=== PATIENT | male | born 1945 | race Caucasian/White ===

== ENCOUNTER → 2020-03-20 11:52 | Outpatient (CLI) | payer MEDICARE, SELFPAY ==
--- NOTE | 2020-03-20 12:00 | XR_ITS ---
PROCEDURE: XR CHEST 2V CLINICAL HISTORY: dyspnea Shortness of air, dizziness COMPARISON: CR [id number] XR chest portable from 01/06/2018 FINDINGS: Borderline cardiomegaly. No failure. There are 2 right atrial and to right ventricular pacer wires present. Coronary artery calcifications are noted. Chronic changes are present in the left lung base The lungs are clear without infiltrates, suspicious nodules, or pleural effusions. Hypertrophic changes are present involving the right AC joint. IMPRESSION: Cardiomegaly with pacemaker present. No change with no acute finding Dictated by: Sajan Crawford MD 03/20/2020 15:51 Sajan Crawford MD in [place] 03/20/2020 15:51
[2020-03-20 13:11] LABS: Basophils % 0.4 % (0.1-2.0); Eosinophils # 0.2 K/mm3 (0.0-0.4); Eosinophils % 2.7 % (0.1-12.0); Hemoglobin 15.3 g/dL (14.1-18.0); Lymphocytes % 12.8 % (10-50); Mean Corpuscular HGB Conc 30.6 g/dL (31.8-35.4); Mean Corpuscular Hemoglobin 25.8 pg (27.0-31.2); Mean Corpuscular Volume 84.2 fl (80-94); Monocytes # 0.7 K/mm3 (0.1-1.0); Monocytes % 8.8 % (1.7-9.3); Neutrophils % 75.4 % (37.0-80.0); Platelet Count 130 K/mm3 (142-424); Red Blood Count 5.94 M/mm3 (4.60-6.20); Red Cell Distribution Width 14.9 % (11.5-17.5)
[2020-03-20 14:26] LABS: Anion Gap 12.6 mEq/L (5-15); Blood Urea Nitrogen 28 mg/dl (9-20); Calcium 9.3 mg/dl (8.4-10.2); Carbon Dioxide 34 mmol/L (22.0-30.0); Chloride 101 mmol/L (98-107); Estimated Glomerular Filt Rate 43 ml/min (>60); GFR (African American) 52 ML/MIN (>60); Glucose 62 mg/dl (74-100); Potassium 5.6 mmoL/L (3.5-5.1); Sodium 142 mmol/L (136-145)
[2020-03-20 14:30] LABS: NT Pro Brain Natriuretic Pep. 516 pg/mL (0-125)
== END ==
PROVIDERS: Visit Provider Internal Medicine Cardiovascular Disease
DX: E78.2 Mixed hyperlipidemia (principal); G62.9 Polyneuropathy, unspecified; I11.0 Hypertensive heart disease with heart failure; I25.10 Atherosclerotic heart disease of native coronary artery without angina pectoris; I50.22 Chronic systolic (congestive) heart failure; R06.02 Shortness of breath; R42 Dizziness and giddiness; R55 Syncope and collapse; Z95.810 Presence of automatic (implantable) cardiac defibrillator
CPT/HCPCS: 36415; 71046; 80048; 83880; 85025

== ENCOUNTER → 2020-03-27 08:49 | Outpatient (CLI) | payer MEDICARE, SELFPAY ==
--- NOTE | 2020-03-27 | CA_ITS ---
APPROVED REPORT Exam: Pharmacologic Technologist: Cherri Duarte, Ht: 5 ft 5 in Wt: 205 lbs BSA: 2.00 m2 HR: 69 bpm BP: 134/69 mmHg Rhythm: NSR,T WAVE ABNORMALITIES INFERIORLY AND LATERALLY Medical History Medical History: CAD s/p stent, HTN Medications: Lisinopril,,,,, Omeprazole,,,,, Metoprolol,,,,, Gabapentin,,,,, Sotalol,,,,, XaRELTO,,,,, Meclazine,,,,, Plavix,,,,, OxYCODONE,,,,, Baclofen,,,,, Ranexa,,,,, Pramidexole,,,,, Allergies: PROCAINE, SACUBITRIL, VALSARTAN Cardiac Risk Factors: HTN, FHX of CAD Previous Cardiac Procedures: Pacemaker Stress Test Details Test: LEXISCAN HR Resting HR: 70 bpm Max Heart Rate (APMHR): 147 bpm Max HR Achieved: 85 bpm Target HR (85% APMHR): 124 bpm % of APMHR: 57 Recovery HR: 76 bpm BP Resting BP: 134.0/69.0 mmHg Max BP: 140.0/71.0 mmHg Recovery BP: 136.0/74.0 mmHg ECG Resting ECG: NSR,T WAVE ABNORMALITIES INFERIORLY AND LATERALY Clinical Exercise duration: 04:01 min Highest Stage Achieved: Exercise capacity: 1.0 METs Stress ECG Conclusion DURING INFUSION PATIENT HAD BRIEF SOA,SEVERE HEADACHE,EAR PRESSURE AND MALAISE. NO CHEST PAIN. RARE PVC. NO SIGNIFICANT ST-T CHANGES. UNREMARKABLE LEXISCAN STRESS. MYOVIEW IMAGES REPORTED SEPARATELY Test Summary REST . . . . . . . Sitting REST 04:03 . . 70 . 134/ 69 . . Stage 1 . . . . . . . Myoview Injected Stage 1 01:00 . . 79 . . . . Stage 2 01:00 . . 80 . 100/ 51 . . Stage 3 01:00 . . 79 . 129/ 61 . . Stage 4 01:00 . . 78 . 126/ 67 . . Stage 4 01:01 . . 78 . 126/ 67 . Stop exercise at 04:01 RECOVERY 01:00 . . 74 . 136/ 74 . . RECOVERY 02:00 . . 80 . 136/ 74 . . RECOVERY 03:00 . . 75 . 140/ 71 . . RECOVERY 04:00 . . 74 . 135/ 68 . . RECOVERY 05:00 . . 75 . 135/ 68 . . RECOVERY 06:00 . . 73 . 134/ 70 . . RECOVERY 07:00 . . 72 . 134/ 70 . . RECOVERY 07:38 . . 72 . 138/ 70 . . Electronically signed by : Antwon Angulo, 03/27/2020 13:32:16
--- NOTE | 2020-03-27 08:51 | CA_ITS ---
APPROVED REPORT Strategy Manager: EBONIE Laterality: Bilateral Indications: bilateral carotid bruits Risk Factors Hypertension: Hyperlipidemia CAD, CHF Doppler Spectral Velocity Analysis ECA (R) 102.30/16.50 cm/s ECA (L) 111.70/20.20 cm/s dICA (R) 70.60/27.00 cm/s dICA (L) 79.30/20.20 cm/s Paulino (R) 74.50/22.50 cm/s Paulino (L) 80.10/26.90 cm/s pICA (R) 62.90/12.80 cm/s pICA (L) 66.60/19.50 cm/s dCCA (R) 288.10/26.00 cm/s dCCA (L) 110.00/21.00 cm/s pCCA (R) 248.00/28.30 cm/s pCCA (L) 87.50/9.00 cm/s Vert (R) 33.70/12.00 cm/s Vert (L) 45.60/12.80 cm/s ICA/CCA 0.40 ICA/CCA 0.73 Findings Duplex evaluation demonstrates stenosis of the right proximal internal carotid artery <20% with PSV <140 cm/sec, EDV <100 cm/sec, and IC/CC Ratio <4.0. Duplex evaluation demonstrates stenosis of the left proximal internal carotid artery <20% with PSV <140 cm/sec, EDV <100 cm/sec, and IC/CC Ratio <4.0. Conclusion Duplex evaluation demonstrates stenosis of the right proximal internal carotid artery <20% with PSV <140 cm/sec, EDV <100 cm/sec, and IC/CC Ratio <4.0. Duplex evaluation demonstrates stenosis of the left proximal internal carotid artery <20% with PSV <140 cm/sec, EDV <100 cm/sec, and IC/CC Ratio <4.0. Electronically signed by : Archie Guerrero MD 03/27/2020 13:04:46
--- NOTE | 2020-03-27 08:51 | CA_ITS ---
APPROVED REPORT EXAM: Comprehensive 2D, Doppler, and color-flow Echocardiogram Learning Officer: Brittanie De Guzman RT(R) Ht: 5 ft 5 in Wt: 205lbs BSA: 2.00 BP: 126/56 mmHg Indications: SOB, BRIANNE, syncope, HTN, AICD, CHF, CM, CAD 2D Dimensions LVOT 1.99 cm (M/F) 1.5-2.5 M-Mode Dimensions RVDd 2.73 cm (0.9-2.6) LVDd 4.79 cm (3.5-5.7) LVDs 3.90 cm (3.5-5.7) IVSd 1.03 cm (0.6-1.1) PWd 1.13 cm (0.6-1.1) EF (Teich) 38.40% FS 18.60% EDV (Teich) 107.00 mL ESV (Teich) 65.90 mL LV Diastology E/A Ratio 1.25 Mitral Valve MV A Velocity 99.00 (40-130 cm/s) Left Ventricle Left atrium is moderately enlarged, left ventricle is normal size, mild concentric left ventricular hypertrophy, visually estimated ejection fraction 40 to 45%, there is marked hypokinesis involving the basal septum and inferior basal wall. Grade 1 diastolic dysfunction seen with tissue Doppler evidence of raise left atrial pressure. Definity contrast was utilized to delineate the endocardial surfaces. Right Ventricle Right atrium and right ventricle are mildly enlarged with normal contractility, there is an AICD lead seen in the right ventricle. Aortic Valve Aortic valve is thickened and calcified leaflet chordae display good mobility, there is no aortic stenosis or aortic insufficiency. Mitral Valve Mitral valve leaflets are minimally thickened, there is no mitral stenosis, there is moderate to severe mitral regurgitation. Tricuspid Valve Tricuspid valve is grossly normal, there is mild tricuspid regurgitation, tricuspid regurgitation jet velocity is inadequate for calculation of the right ventricular systolic pressure. Pulmonic Valve Pulmonic valve is poorly visualized. Great Vessels Aortic root is normal size. Pericardium Small pericardial effusion noted. Conclusion 1. Biatrial enlargement, normal left ventricular size, mild concentric left ventricular hypertrophy, visually estimated ejection fraction 40 to 45% with multiple segmental wall motion abnormality described above, grade 1 diastolic dysfunction seen with tissue Doppler evidence of raise left atrial pressure. Definity contrast was utilized to delineate the endocardial surfaces, there is no left ventricular thrombus seen. 2. Moderate to severe mitral and mild tricuspid regurgitation. 3. Small pericardial effusion noted. Electronically signed by : Antwon Angulo, 03/27/2020 11:10:08
--- NOTE | 2020-03-27 11:01 | NM_ITS ---
APPROVED REPORT Exam: Nuclear Stress Test Indication: CAD, 3 STENTS, HX CT, CHF, HTN, FM HX, SOB, PALPITATIONS, SYNCOPE, FATIGUE Patient Location: Outpatient Stress Tech: Kely Duarte [place] Tech:Joana Cote, ARRT, RT (R)(N) Ht: 5 ft 5 in Wt: 200 lbs HR: 69 bpm BP: 134/69 mmHg BSA: 1.98 m2 BMI: 33.2 History: CAD, 3 STENTS, HX CT, CHF, HTN, FM HX, SOB, PALPITATIONS, SYNCOPE, FATIGUE Procedure: Patient received a 0.4 mg of intravenous Lexiscan, resting heart rate 69 bpm, resting blood pressure 134/69 mmHg, with Lexiscan maximum heart rate achived was 84 bpm which is % of the maximum predicted heart rate and blood pressure was 140/71 mmHg. C/O H.A., AND EAR PRESSURE Electrocardiogram Resting electrocardiogram showed sinus rhythm, with Lexiscan there is less than 1.[address] segment depression noted from the baseline EKG. The EKG portion of the Lexiscan Myoview is nondiagnostic. Cardiac Stress and Resting SPECT Images: Cardiac Stress and Resting SPECT images were obtained using technetium 99m Myoview 32.2 mCi stress and 10.17 mCi at rest. Gated SPECT for the analysis of segmental wall motion and calculation of the ejection fraction also done. Cardiac stress and resting SPECT images show a fixed defect involving the inferior inferior apical and inferolateral wall in a fixed pattern consistent with extensive area of myocardial scarring without significant flora-infarct ischemia. Computer derived ejection fraction is 47% with marked hypokinesis involving the inferior inferior apical and inferolateral wall. Right ventricle is normal size and contractility. Conclusion: 1. The EKG portion of the Lexiscan Myoview is nondiagnostic. 2. Scintigraphic evidence of extensive myocardial scarring involving the inferior, inferior apical and inferolateral wall without significant floar-infarct ischemia. Computer derived ejection fraction is 47% with segmental wall motion abnormality described above, right ventricle is normal size and contractility. 3. Abnormal Lexiscan Myoview study. Electronically signed by : Antwon Angulo, 03/27/2020 15:02:56
== END ==
PROVIDERS: PCP Family Medicine; Visit Provider Internal Medicine Cardiovascular Disease
DX: E78.2 Mixed hyperlipidemia (principal); G62.9 Polyneuropathy, unspecified; I11.0 Hypertensive heart disease with heart failure; I25.10 Atherosclerotic heart disease of native coronary artery without angina pectoris; I50.22 Chronic systolic (congestive) heart failure; R06.02 Shortness of breath; R42 Dizziness and giddiness; R55 Syncope and collapse; Z95.810 Presence of automatic (implantable) cardiac defibrillator; R09.89 Other specified symptoms and signs involving the circulatory and respiratory systems
CPT/HCPCS: 78452; 93017; 93306; 93880; A9502; J2785; Q9957

== ENCOUNTER → 2021-02-04 12:35 | Outpatient (CLI) | payer MEDICARE, SELFPAY ==
[2021-02-04 13:02] LABS: Basophils % 0.6 % (0.1-2.0); Eosinophils # 0.1 K/mm3 (0.0-0.4); Eosinophils % 2.2 % (0.1-12.0); Hematocrit 45.5 % (42.0-52.0); Hemoglobin 13.9 g/dL (14.1-18.0); Lymphocytes # 0.7 K/mm3 (0.7-4.5); Lymphocytes % 12.2 % (10-50); Mean Corpuscular HGB Conc 30.6 g/dL (31.8-35.4); Mean Corpuscular Hemoglobin 23.3 pg (27.0-31.2); Mean Platelet Volume 9.6 fl (7.4-10.4); Monocytes # 0.5 K/mm3 (0.1-1.0); Monocytes % 7.5 % (1.7-9.3); Neutrophils # 4.7 K/mm3 (1.8-7.8); Neutrophils % 77.6 % (37.0-80.0); Platelet Count 119 K/mm3 (142-424); Red Blood Count 5.99 M/mm3 (4.60-6.20); Red Cell Distribution Width 17.7 % (11.5-17.5); White Blood Count 6.1 K/mm3 (4.8-10.8)
[2021-02-04 13:58] LABS: Chloride 104 mmol/L (98-107); Potassium 5.2 mmoL/L (3.5-5.1); Sodium 141 mmol/L (136-145)
[2021-02-04 14:01] LABS: Anion Gap 14.2 mEq/L (5-15); Blood Urea Nitrogen 21 mg/dl (9-20); Calcium 8.8 mg/dl (8.4-10.2); Carbon Dioxide 28 mmol/L (22.0-30.0); Estimated Glomerular Filt Rate 59 ml/min (>60); GFR (African American) 72 ML/MIN (>60); Glucose 81 mg/dl (74-100)
== END ==
PROVIDERS: Visit Provider Internal Medicine
DX: D45 Polycythemia vera (principal); E78.5 Hyperlipidemia, unspecified; I11.0 Hypertensive heart disease with heart failure; I20.0 Unstable angina; I25.5 Ischemic cardiomyopathy; I50.22 Chronic systolic (congestive) heart failure; R06.00 Dyspnea, unspecified; Z95.810 Presence of automatic (implantable) cardiac defibrillator; Z01.812 Encounter for preprocedural laboratory examination; Z20.822 Contact with and (suspected) exposure to COVID-19
CPT/HCPCS: 80048; 85025; U0003

== ENCOUNTER 2021-02-05 07:55 | Day surgery (SDC) | payer MEDICARE, SELFPAY ==
[2021-02-05] VITALS (12 sets, daily range): BP systolic 82–128; BP diastolic 50–71; PULSE 60–66; RESP 16–20; O2SAT 94–98; BMI 31.9
--- NOTE | 2021-02-05 07:19 | IR_ITS ---
APPROVED REPORT Patient Location: Outpatient Coding Compliance Specialist: KAM Desai RT (R) PROCEDURES Left heart catheterization Left ventriculogram Selective coronary angiogram INDICATION History of coronary disease, History of systolic congestive heart failure, History of complex percutaneous revascularization due to not being a surgical candidate, Crescendo angina Informed consent was obtained prior to the procedure. COMPLICATIONS NONE Estimated Blood Loss: LESS THAN 10 ML TECHNIQUE One percent lidocaine used to anesthetize the right anterior aspect of the wrist. The right radial artery was accessed via the Seldinger technique. A 6 Nepali sheath was placed in the right radial artery. 2.5 mg of verapamil, 800 mcg of nitroglycerin, 1mg Lidocaine and 5000 U Heparin were given through the arterial sheath. The Poppa catheter was also used to perform left heart catheterization, left ventriculogram and selective coronary angiogram. At the end of the procedure the sheath was removed good hemostasis was achieved using Traclet band, patient was transferred to the postop holding area in stable condition. ANGIOGRAPHIC RESULTS The left main artery Normal The left anterior descending artery Has a stent in the proximal segment which is widely patent free of in-stent restenosis with excellent proximal and distal transitioning. The remaining LAD has mild mid vessel 30 and 40% stenoses along the tortuous bends of the mid segment. A large first diagonal artery originates in the proximal LAD and is widely patent with a mid vessel having 40% concentric stenosis. The circumflex artery Is a nondominant vessel and patent throughout its entire course with proximal 30% stenosis in a first obtuse marginal artery. The right coronary artery Dominant ostially occluded with the distal vessel filling via [id number] collaterals The PASTRANA ventriculogram reveals Severe dilatation with reduced ejection fraction estimated 25% The left ventricular end-diastolic pressure 20 mmHg IMPRESSION Coronary disease as described above which is stable and unchanged from 2018 complex percutaneous revascularization Stable severe left ventricular dysfunction Essentially normal LVEDP PLAN 1. Continue medical management 2. Treatment of nonischemic chest pain Electronically signed by : Dell Fish MD 02/05/2021 10:25:18
--- NOTE | 2021-02-05 11:02 | SUR.PHASEII ---
Patient transported to post op to finish recovery period. Report given to Kaity Munoz RN
== END 2021-02-05 13:40 | disposition home or self-care (01) ==
LOC: CATHLAB 07:57
PROVIDERS: PCP Family Medicine; Visit Provider Internal Medicine
DX: D45 Polycythemia vera (principal); E78.5 Hyperlipidemia, unspecified; I11.0 Hypertensive heart disease with heart failure; I25.5 Ischemic cardiomyopathy; I50.22 Chronic systolic (congestive) heart failure; R06.00 Dyspnea, unspecified; Z95.810 Presence of automatic (implantable) cardiac defibrillator; I25.110 Atherosclerotic heart disease of native coronary artery with unstable angina pectoris; Z79.01 Long term (current) use of anticoagulants; Z79.899 Other long term (current) drug therapy; Z88.8 Allergy status to other drugs, medicaments and biological substances; Z95.5 Presence of coronary angioplasty implant and graft; Z95.0 Presence of cardiac pacemaker; I34.0 Nonrheumatic mitral (valve) insufficiency; I31.8 Other specified diseases of pericardium
CPT/HCPCS: 93458; 99152; C1725; C1769; J1644; Q9967

== ENCOUNTER → 2021-03-24 11:39 | Outpatient (CLI) | payer MEDICARE, SELFPAY ==
[2021-03-24 12:09] LABS: Chloride 105 mmol/L (98-107); Potassium 4.5 mmoL/L (3.5-5.1); Sodium 142 mmol/L (136-145)
[2021-03-24 12:12] LABS: Anion Gap 11.5 mEq/L (5-15); Blood Urea Nitrogen 18 mg/dl (9-20); Carbon Dioxide 30 mmol/L (22.0-30.0); Estimated Glomerular Filt Rate 65 ml/min (>60); GFR (African American) 79 ML/MIN (>60)
[2021-03-24 12:13] LABS: Calcium 8.7 mg/dl (8.4-10.2); Glucose 115 mg/dl (74-100)
--- NOTE | 2021-03-24 13:06 | CA_ITS ---
APPROVED REPORT EXAM: Comprehensive 2D, Doppler, and color-flow Echocardiogram Accessories Repairer: Nicki Walker, RCS, RVS Ht: 5 ft 5 in Wt: 199lbs BSA: 1.97 BP: 124/62 mmHg Indications: PALACIOS, extreme SOA, known cad s/p cath 2 weeks ago, ischemic CM-Last ef 40-45%, murmurs 2D Dimensions LVDd 6.15 cm LVEF (Visual) 35.30 % LVDs 5.09 cm LA Volume 89.50 mL Left Atrium 4.90 cm LA Volume Index 45.40 mL/m2 (M/F) 16-34 LVOT 2.07 cm (M/F) 1.5-2.5 M-Mode Dimensions RVDd 3.88 cm (0.9-2.6) LA Diam 5.00 cm (1.9-4.0) LVDd 6.88 cm (3.5-5.7) Ao Diam 3.31 cm (2.0-3.7) LVDs 5.43 cm (3.5-5.7) IVSd 1.12 cm (0.6-1.1) PWd 1.26 cm (0.6-1.1) EF (Teich) 41.70% FS 21.10% EDV (Teich) 245.60 mL TAPSE 1.92 (<1.7) ESV (Teich) 143.10 mL LV Diastology E Decel Time 210.00 (160-240 msec) E/A Ratio 2.65 MED E' 6.50 (< 7 cm/sec) MED A' 3.60 cm/s E'/MED E' Ratio 22.71 (>14) LAT E' 4.40 (<10 cm/sec) LAT A' 4.70 cm/s E/LAT E' Ratio 33.55 (>14) Aortic Valve LVOT Max 75.00 (70-110 cm/s) LVOT VTI 17.41 cm AoV Peak Adriano. 123.00 (50-130 cm/s) AO Peak GR. 6.00 mmHg AO Mean GR. 3.10 (<5 mmHg) AO VTI 25.95 (18-25 cm) ALIYA (VTI) 2.26 (2.5-4.5 cm2) Mitral Valve MV A Velocity 56.00 (40-130 cm/s) E/A Ratio 2.65 MV Decel. Time 210.00 (160-240 ms) MV Mean Gr. 2.60 (<2mmHg) MV PHT 40.00 ms Pulmonary Valve PV Peak Velocity 76.00 (50-150 cm/s) OK End VMAX 179.00 cm/s Tricuspid Valve TR P. Velocity 324.00 cm/s RAP Estimate 10.00 mmHg RVSP 51.90 mmHg Left Ventricle Left atrium is moderately enlarged, left ventricle is mildly dilated, reduced left ventricular systolic function, visually estimated ejection fraction approximately 40 to 45%, with marked hypokinesis involving the basal septum, inferior basal, inferoseptal and posterior basal wall. Doppler evidence of raise left ventricular end-diastolic and left atrial pressure. Right Ventricle Right atrium and right ventricle are normal size and contractility, there is an AICD lead seen in right ventricle. Aortic Valve Aortic valve is thickened and calcified without Doppler evidence of aortic stenosis or significant aortic insufficiency. Mitral Valve Mitral valve leaflets are minimally thickened, there is severe mitral regurgitation. Tricuspid Valve Tricuspid valve grossly normal, there is mild tricuspid regurgitation, tricuspid regurgitation jet velocity is inadequate for calculation of the right ventricular systolic pressure. Pulmonic Valve Pulmonic valve is poorly visualized. Great Vessels Aortic root is normal size. Inferior vena cava is dilated without significant inspiratory collapse. Pericardium Small pericardial effusion noted. Conclusion 1. Moderately enlarged left atrium, mildly dilated left ventricle, reduced left ventricular systolic function, visually estimated ejection fraction 40-45% with multiple segmental wall motion abnormality, Doppler evidence of raise left ventricular end-diastolic pressure as well as left atrial pressure. 2. Severe mitral regurgitation as described above. 3. Small pericardial effusion noted. 4. Inferior vena cava is dilated without significant inspiratory collapse. Electronically signed by : Antwon Angulo MD 03/24/2021 19:09:59
--- NOTE | 2021-03-24 13:40 | CT_ITS ---
PROCEDURE: CT ANGIO CHEST PE PROTOCOL CLINCIAL INDICATION: dyspnea COMPARISON: No exams were available for comparison TECHNIQUE: IV Contrast: 70ML Isovue 370 Axial images obtained with sagittal and coronal reformats. All CT scans at the facility use one or more dose reduction, viz: automated exposure control, ma/kV adjustment per patient size (including targeted exams where dose is matched to indication, i.e. head), or iterative reconstruction technique. FINDINGS: HEART AND MEDIASTINAL STRUCTURES: No evidence of pulmonary embolus. No evidence of aortic aneurysm. Scattered small nodes are present in the hasmukh with mildly prominent nodes in the subcarinal region. Artifact is present from artery left subclavian placed cardiac pacemaker device. Coronary artery stent is present with coronary artery calcifications. There is a small pericardial effusion with pericardium measuring up to 14 mm in thickness. LUNGS AND PLEURAL SPACES: There is a 7 mm Bela fissural nodule in the right lower lobe anteriorly associated with some minimal thickening of the fissure medially. Minimal atelectatic changes are present in the lingula and right lower lobe. BONY STRUCTURES: No acute bony abnormalities apparent. UPPER ABDOMEN: Gallbladder is slightly distended and incompletely imaged. ADDITIONAL FINDINGS: No other significant abnormalities. IMPRESSION: 1. No evidence of pulmonary embolus. 2. Mildly prominent hilar and subcarinal lymph nodes. 3. 7 mm Bela fissural nodule on the right. Suggest 6 month follow-up 4. Pericardial effusion Dictated by: Sajan Crawford MD 03/24/2021 14:55 Sajan Crawford MD in [place] 03/24/2021 14:55
== END ==
PROVIDERS: Internal Medicine; PCP Family Medicine; Visit Provider Nurse Practitioner Family
DX: D45 Polycythemia vera (principal); E78.5 Hyperlipidemia, unspecified; G47.33 Obstructive sleep apnea (adult) (pediatric); I20.0 Unstable angina; I31.9 Disease of pericardium, unspecified; I34.0 Nonrheumatic mitral (valve) insufficiency; I42.9 Cardiomyopathy, unspecified; I50.20 Unspecified systolic (congestive) heart failure; I50.22 Chronic systolic (congestive) heart failure; R06.00 Dyspnea, unspecified; R42 Dizziness and giddiness; R94.31 Abnormal electrocardiogram [ECG] [EKG]; Z79.01 Long term (current) use of anticoagulants; Z95.810 Presence of automatic (implantable) cardiac defibrillator; Z99.89 Dependence on other enabling machines and devices; I25.5 Ischemic cardiomyopathy; I11.0 Hypertensive heart disease with heart failure; Z20.822 Contact with and (suspected) exposure to COVID-19
CPT/HCPCS: 36415; 71275; 80048; 82565; 84520; 93306; C9803; Q9967; U0003; U0005

== ENCOUNTER → 2021-03-24 15:08 | Outpatient (CLI) | payer MEDICARE, SELFPAY | PROVIDERS: PCP Family Medicine; Visit Provider Nurse Practitioner | DX: Z20.822 Contact with and (suspected) exposure to COVID-19 (principal) | CPT/HCPCS: 36415; 71275; 80048; 82565; 84520; 93306; C9803; Q9967; U0003; U0005 ==

== ENCOUNTER → 2021-03-30 11:52 | Outpatient (CLI) | payer MEDICARE, SELFPAY ==
[2021-03-30 14:41] LABS: Chloride 102 mmol/L (98-107); Sodium 139 mmol/L (136-145)
[2021-03-30 14:44] LABS: Blood Urea Nitrogen 31 mg/dl (9-20); Calcium 8.7 mg/dl (8.4-10.2); Carbon Dioxide 28 mmol/L (22.0-30.0); Estimated Glomerular Filt Rate 50 ml/min (>60); GFR (African American) 60 ML/MIN (>60); Glucose 90 mg/dl (74-100)
== END ==
PROVIDERS: Visit Provider Internal Medicine
DX: D45 Polycythemia vera (principal); E78.5 Hyperlipidemia, unspecified; G47.33 Obstructive sleep apnea (adult) (pediatric); I11.9 Hypertensive heart disease without heart failure; I25.10 Atherosclerotic heart disease of native coronary artery without angina pectoris; I34.0 Nonrheumatic mitral (valve) insufficiency; I42.9 Cardiomyopathy, unspecified; I50.22 Chronic systolic (congestive) heart failure; R06.00 Dyspnea, unspecified; R94.31 Abnormal electrocardiogram [ECG] [EKG]; Z79.01 Long term (current) use of anticoagulants; Z99.89 Dependence on other enabling machines and devices
CPT/HCPCS: 36415; 80048

== ENCOUNTER → 2021-04-06 10:07 | Outpatient (CLI) | payer MEDICARE, SELFPAY ==
[2021-04-06 10:39] LABS: Anion Gap 10.7 mEq/L (5-15); Blood Urea Nitrogen 30 mg/dl (9-20); Calcium 8.6 mg/dl (8.4-10.2); Carbon Dioxide 30 mmol/L (22.0-30.0); Chloride 103 mmol/L (98-107); Estimated Glomerular Filt Rate 46 ml/min (>60); GFR (African American) 55 ML/MIN (>60); Glucose 104 mg/dl (74-100); Potassium 4.7 mmoL/L (3.5-5.1); Sodium 139 mmol/L (136-145)
== END ==
PROVIDERS: Visit Provider Internal Medicine
DX: D45 Polycythemia vera (principal); E78.5 Hyperlipidemia, unspecified; G47.33 Obstructive sleep apnea (adult) (pediatric); I11.9 Hypertensive heart disease without heart failure; I25.10 Atherosclerotic heart disease of native coronary artery without angina pectoris; I34.0 Nonrheumatic mitral (valve) insufficiency; I42.9 Cardiomyopathy, unspecified; I50.22 Chronic systolic (congestive) heart failure; R06.00 Dyspnea, unspecified; R94.31 Abnormal electrocardiogram [ECG] [EKG]; Z79.01 Long term (current) use of anticoagulants; Z99.89 Dependence on other enabling machines and devices
CPT/HCPCS: 36415; 80048

== ENCOUNTER 2021-12-15 12:20 | Observation (INO) | payer MEDICARE, SELFPAY ==
[2021-12-15] VITALS (15 sets, daily range): BP systolic 111–137; BP diastolic 54–89; PULSE 54–86; RESP 14–20; TEMP 37–37.4; O2SAT 93–98; BMI 33.9; BMI 34.9
--- NOTE | 2021-12-15 | IR_ITS ---
APPROVED REPORT Patient Location: Inpatient [employer] Worker: KAM Vann RT (R) PROCEDURES Left heart catheterization Left ventriculogram Selective coronary angiogram INDICATION Unstable angina, Known coronary artery disease, Ischemic cardiomyopathy, Known systolic congestive heart failure Informed consent was obtained prior to the procedure. COMPLICATIONS None Estimated Blood Loss: Less than 10 mls TECHNIQUE One percent lidocaine used to anesthetize the right anterior aspect of the wrist. The right radial artery was accessed via the Seldinger technique. A 6 Yakut sheath was placed in the right radial artery. 2.5 mg of verapamil, 800 mcg of nitroglycerin, 1mg Lidocaine and 5000 U Heparin were given through the arterial sheath. The papa catheter and a JL 3 guide catheter were also used to perform left heart catheterization, left ventriculogram and selective coronary angiogram. At the end of the procedure the sheath was removed good hemostasis was achieved using Traclet band, patient was transferred to the postop holding area in stable condition. ANGIOGRAPHIC RESULTS The left main artery Normal The left anterior descending artery Has a stent in the proximal segment which is widely patent free of in-stent restenosis with excellent proximal distal transitioning. There are additional 30% stenoses followed by mid vessel concentric 50% stenosis The circumflex artery Is nondominant and has a proximal 30% stenosis with an additional 30% stenosis at the bifurcation of the second and third obtuse marginal artery The right coronary artery Is dominant ostially occluded and fills via [id number] collaterals The PASTRANA ventriculogram reveals Dilated ventricle ejection fraction 20% The left ventricular end-diastolic pressure Severely elevated at 40 mmHg IMPRESSION Coronary artery disease as described above all of which is stable Severe left ventricular dysfunction with severely elevated LVEDP which is likely the etiology for patient's symptoms PLAN 1. IV diuresis over the next 24 to 48 hours 2. Patient should be considered for a CardioMEMS based on persistent decompensated heart failure accompanied by symptoms 3. Continue risk factor modification for coronary disease Electronically signed by : Dell Fish MD 12/15/2021 15:08:47
--- NOTE | 2021-12-15 12:06 | ECG_ITS ---
APPROVED REPORT Exam: Resting ECG HR:76 bpm ECG Measurements Heart Rate 76 AXES WV 167 P 45 QRSd 108 QRS 48 QT 369 T 192 QTc 399 Conclusion SINUS RHYTHM WITH OCCASIONAL VENTRICULAR PREMATURE COMPLEXES MODERATE T-WAVE ABNORMALITY, CONSIDER LATERAL ISCHEMIA [-0.1+ mV T-WAVE IN I/aVL/V5/V6] MODERATE T-WAVE ABNORMALITY, CONSIDER INFERIOR ISCHEMIA [-0.1+ mV T-WAVE IN II/aVF] ABNORMAL ECG UNCONFIRMED REPORT Electronically signed by : Mayank Ozuna MD 12/16/2021 14:40:52
--- NOTE | 2021-12-15 12:41 | PC.NURSE ---
pt presents to ER as a direct admit from [facility] with chest pain he is a pt of Dr Fish , repeat labs and EKG done pt resting family at BS. pt c/o of midsternal chest pain with movement and deep breath
[2021-12-15 12:49] LABS: Coronavirus 19, PCR Not Detected (NotDetected); Influenza A, PCR Not Detected (NotDetected); Influenza B, PCR Not Detected (NotDetected)
[2021-12-15 12:52] LABS: Basophils # 0.1 K/mm3 (0-0.2); Basophils % 1.4 % (0.1-2.0); Eosinophils # 0.1 K/mm3 (0.0-0.4); Eosinophils % 1.1 % (0.1-12.0); Hematocrit 39.6 % (42.0-52.0); Lymphocytes # 0.3 K/mm3 (0.7-4.5); Lymphocytes % 5.4 % (10-50); Mean Corpuscular Hemoglobin 27.6 pg (27.0-31.2); Mean Corpuscular Volume 83.7 fl (80-94); Mean Platelet Volume 10.3 fl (7.4-10.4); Monocytes # 0.4 K/mm3 (0.1-1.0); Monocytes % 6.2 % (1.7-9.3); Neutrophils # 5.3 K/mm3 (1.8-7.8); Neutrophils % 85.9 % (37.0-80.0); Platelet Count 90 K/mm3 (142-424); Red Blood Count 4.73 M/mm3 (4.60-6.20); Red Cell Distribution Width 20.1 % (11.5-17.5); White Blood Count 6.2 K/mm3 (4.8-10.8)
[2021-12-15 12:58] LABS: MANUAL DIFFERENTIAL MANUAL DIFFERENTIAL (MANUAL DIFF)
[2021-12-15 12:59] LABS: Chloride 107 mmol/L (98-107); Sodium 137 mmol/L (136-145)
[2021-12-15 13:00] LABS: Potassium 4.1 mmoL/L (3.5-5.1)
[2021-12-15 13:03] LABS: Anion Gap 6.1 mEq/L (5-15); Blood Urea Nitrogen 28 mg/dl (9-20); Calcium 7.3 mg/dl (8.4-10.2); Carbon Dioxide 28 mmol/L (22.0-30.0); Creatinine Clearance Estimated 70 mL/min (50-200); Estimated Glomerular Filt Rate 59 ml/min (>60); GFR (African American) 71 ML/MIN (>60); Glucose 89 mg/dl (74-100)
[2021-12-15 13:12] LABS: Eosinophils % 1 % (0-3); Lymphocytes % 5 % (10-50); Monocytes % 4 % (2-9); Neutrophils % 90 % (42-76); Total Cells Counted 100
[2021-12-15 13:13] LABS: Hypochromasia 1+
[2021-12-15 13:14] LABS: Hypersegmented Neutrophils 1+; Ovalocytes 2+
[2021-12-15 13:17] LABS: Platelet Estimate Moderate Decrease
[2021-12-15 13:18] LABS: Troponin I < 0.01 ng/ml (0.00-0.034)
--- NOTE | 2021-12-15 15:22 | PC.NURSE ---
Pt arrived to the floor at this time
--- NOTE | 2021-12-15 19:40 | PC.NURSE ---
R radial band applied back to 18 ml of air as it was bleeding slightly.
[2021-12-16] VITALS: PULSE 70
[2021-12-16 04:00] VITALS: BP 128/68; PULSE 60; PULSE 71; RESP 17; TEMP 36.9; O2SAT 96
[2021-12-16 05:47] VITALS: BMI 34.9
[2021-12-16 07:37] VITALS: BP 124/56; PULSE 69; RESP 18; TEMP 36.9; O2SAT 99
--- NOTE | 2021-12-16 07:48 | P.CONPHA_ITS ---
[facility] [place] Pharmacy VTE Monitoring - Patient Demographics Admission date: 12/15/21 Report Date: 12/16/21 Time: 07:48 Allergies/Adverse Reactions: Patient Allergies procaine Allergy (Unknown, Verified 06/17/21 10:49) empagliflozin [From Jardiance] Adverse Reaction (Mild, Verified 06/17/21 11:35) itching rosuvastatin Adverse Reaction (Verified 06/17/21 10:49) muscle pain Height: 1.65 m Weight: 94.943 kg - VTE Risk Labs: VTE Related Lab Results Hgb 13.0 g/dL (14.1-18.0) L 12/15/21 12:35 Hct 39.6 % (42.0-52.0) L 12/15/21 12:35 Plt Count 90 K/mm3 (142-424) L 12/15/21 12:35 BUN 28 mg/dl (9-20) H 12/15/21 12:35 Creatinine 1.20 mg/dl (0.66-1.25) 12/15/21 12:35 Estimated Creat Clear 70 mL/min (50-200) 12/15/21 12:35 VTE Score: 5 VTE Risk Level: Low Risk - Prophylaxis VTE Prophylaxis Ordered?: Yes Types of VTE Prophylaxis: TEDS Knee High Location of Applied Device: Bilateral Lower Extremeties
--- NOTE | 2021-12-16 07:48 | HMH.PHAINT ---
MEDICATION RECONCILIATION COMPLETED ON PATIENT USING EXTERNAL FILL HISTORY FROM PHARMACY AND LIST FROM CARDIOLOGY OFFICE. -AUGUSTINA THAKKARD
[2021-12-16 08:00] VITALS: PULSE 70
--- NOTE | 2021-12-16 09:55 | HMH.CNCARD ---
History of Present Illness Consult date: 12/16/21 Requesting physician: Chino Dorantes Consult reason: chest pain Chief complaint: chest pain History of present illness: This is a 76-year-old white gentleman who was transferred to [facility] from [facility] secondary to chest pain. The patient states that on Tuesday night he started having severe substernal chest pressure and tightness. This was associated with shortness of breath. It did not radiate. It was severe and would not go away. The patient presented to the emergency department at [facility]. He ruled out for an [place] per the patient's report but continued to have severe pain. Dr. Fish was contacted and the patient was transferred here to undergo left cardiac catheterization secondary to his crescendo angina and known history of coronary artery disease. He denied any lower extremity edema. He denied any fever, chills, nausea, vomiting, diarrhea, PND or orthopnea. Once the patient arrived at [facility] he was taken directly to the cardiac catheterization laboratory. [facility] shows: ANGIOGRAPHIC RESULTS The left main artery Normal The left anterior descending artery Has a stent in the proximal segment which is widely patent free of in-stent restenosis with excellent proximal distal transitioning. There are additional 30% stenoses followed by mid vessel concentric 50% stenosis The circumflex artery Is nondominant and has a proximal 30% stenosis with an additional 30% stenosis at the bifurcation of the second and third obtuse marginal artery The right coronary artery Is dominant ostially occluded and fills via [id number] collaterals The PASTRANA ventriculogram reveals Dilated ventricle ejection fraction 20% The left ventricular end-diastolic pressure Severely elevated at 40 mmHg IMPRESSION Coronary artery disease as described above all of which is stable Severe left ventricular dysfunction with severely elevated LVEDP which is likely the etiology for patient's symptoms PLAN 1. IV diuresis over the next 24 to 48 hours 2. Patient should be considered for a CardioMEMS based on persistent decompensated heart failure accompanied by symptoms 3. Continue risk factor modification for coronary disease [facility] History I have reviewed the patient's past medical history: Yes Medical History: Reports:: Atherosclerotic Heart Disease, Atrial Fibrillation, Cardiomyopathy, Congestive Heart Failure, Congenital Heart Disease, Coronary Artery Disease, Hyperlipidemia, Hypertension, Internal Pacemaker, Myocardial Infarction, Renal Disease Denies:: Cancer, Diabetes Mellitus Type 1, Diabetes Mellitus Type 2, MRSA, Seizures *Have you ever received a pneumonia vaccine?: Yes *Have you received a flu vaccine this season?: Yes Other Medical History: Reports: Arthritis, Fibromyalgia, Other. Denies: Blood Transfusion Reaction Laterality Cases: Left: Other, Bilateral: Carpal Tunnel Release Other Surgeries: Yes: Cardiac Catheterization, Pacemaker Amputation: No Fractures: No - *Social History Last grade of school completed: Advanced degree Smoking Status: Never smoker Alcohol Intake: never Alcohol Intake Frequency:: a few times a week Substance Use Type: denies use *Occupational Status:: retired Housing: house Household Members: spouse *Travel in the last 8 weeks: None Family Hx:: Heart Attack, Hyperlipidemia, Hypertension Meds Home Medications Medication Instructions Recorded Confirmed Type omeprazole 20 mg capsule,delayed 20 mg PO DAILY 10/16/18 12/15/21 History release ropinirole 3 mg tablet 3 mg PO HS tab 10/16/18 12/15/21 History promethazine 25 mg tablet 25 mg PO TIDP PRN 04/17/19 12/15/21 History oxycodone 10 mg tablet 10 mg PO Q8HP PRN tab 08/14/19 12/15/21 History tizanidine 4 mg tablet 8 mg PO HS tab 08/14/19 12/15/21 History pramipexole 0.5 mg tablet 0.5 mg PO TID tab 03/20/20 12/15/21 History pregabali
--- NOTE | 2021-12-16 09:55 | HMH.HPDC ---
General - General Admission date:: 12/15/21 Discharge date: 12/16/21 *Admission Date: 12/15/21 *Chief complaint: Pain *History of present illness: This is a 76-year-old white gentleman who was transferred to [facility] from [facility] secondary to chest pain. The patient states that on Tuesday night he started having severe substernal chest pressure and tightness. This was associated with shortness of breath. It did not radiate. It was severe and would not go away. The patient presented to the emergency department at [facility]. He ruled out for an [place] per the patient's report but continued to have severe pain. Dr. Fish was contacted and the patient was transferred here to undergo left cardiac catheterization secondary to his crescendo angina and known history of coronary artery disease. He denied any lower extremity edema. He denied any fever, chills, nausea, vomiting, diarrhea, PND or orthopnea. Once the patient arrived at [facility] he was taken directly to the cardiac catheterization laboratory (Per Poppy Rojas APRN). [facility] History I have reviewed the patient's past medical history: Yes Medical History: Reports:: Atherosclerotic Heart Disease, Atrial Fibrillation, Cardiomyopathy, Congestive Heart Failure, Congenital Heart Disease, Coronary Artery Disease, Hyperlipidemia, Hypertension, Internal Pacemaker, Myocardial Infarction, Renal Disease Denies:: Cancer, Diabetes Mellitus Type 1, Diabetes Mellitus Type 2, MRSA, Seizures *Have you ever received a pneumonia vaccine?: Yes *Have you received a flu vaccine this season?: Yes Other Medical History: Reports: Arthritis, Fibromyalgia, Other. Denies: Blood Transfusion Reaction Laterality Cases: Left: Other, Bilateral: Carpal Tunnel Release Other Surgeries: Yes: Cardiac Catheterization, Pacemaker Amputation: No Fractures: No - *Social History Last grade of school completed: Advanced degree Smoking Status: Never smoker Alcohol Intake: never Alcohol Intake Frequency:: a few times a week Substance Use Type: denies use *Occupational Status:: retired Housing: house Household Members: spouse *Travel in the last 8 weeks: None Family Hx:: Heart Attack, Hyperlipidemia, Hypertension Review of Systems - Review of Systems Review of systems:: pertinent systems reviewed and negative unless documented below - Constitutional Reports fatigue, Denies fever(s) - Eyes Denies blurry vision, Denies double vision - ENT Denies difficulty swallowing, Denies headache(s) - *Cardiovascular Reports chest pain, Reports chest pain at rest, Reports shortness of breath (Left) - *Respiratory Reports shortness of breath, Reports shortness of breath with activity - *Gastrointestinal Denies abdominal pain, Denies change in bowel habits - *Musculoskeletal Denies joint pain, Denies muscle weakness - Integumentary/Breasts Denies change in skin color, Denies new lesions - *Neurologic Denies confusion, Denies dizziness - Psychiatric Denies anxiety, Denies difficulty concentrating - Endocrine Denies cold intolerance, Denies increased thirst - Hematologic/Lymphatic Denies easy bleeding, Denies easy bruising - Allergic/Immunologic Denies GI upset with certain foods, Denies tongue swelling Exam Vital signs and Labs for Last 24 Hours: Temp Pulse Resp BP Pulse Ox 98.4 F 70 18 124/56 L 99 12/16/21 07:37 12/16/21 08:00 12/16/21 07:37 12/16/21 07:37 12/16/21 07:37 Laboratory Results - last 24 hr 12/15/21 12:35: WBC 6.2, RBC 4.73, Hgb 13.0 L, Hct 39.6 L, MCV 83.7, MCH 27.6, MCHC 33.0, RDW 20.1 H, Plt Count 90 L, MPV 10.3, Neut % (Auto) 85.9 H, Lymph % (Auto) 5.4 L, Gage % (Auto) 6.2, Eos % (Auto) 1.1, Baso % (Auto) 1.4, Neut # (Auto) 5.3, Lymph # (Auto) 0.3 L, Gage # (Auto) 0.4, Eos # (Auto) 0.1, Baso # (Auto) 0.1, Total Counted 100, Neutrophils % (Manual) 90 H, Lymphocytes % (Manual) 5 L, Gage
--- NOTE | 2021-12-16 09:56 | CA_ITS ---
APPROVED REPORT EXAM: Comprehensive 2D, Doppler, and color-flow Echocardiogram Client Development Consultant: Precious Lambert RVT Ht: 5 ft 4 in Wt: 209lbs BSA: 1.99 BP: 125/97 mmHg Indications: CP,CHF,CM,EF OF 20%ON CATH 12/15/21,CAD,A-FIB,HTN,HLD,SEVERE MR 2D Dimensions LVOT 2.12 cm (M/F) 1.5-2.5 LA Volume 50.50 mL LA Volume Index 25.37 mL/m2 (M/F) 16-34 M-Mode Dimensions RVDd 1.87 cm (0.9-2.6) LA Diam 4.97 cm (1.9-4.0) LVDd 7.49 cm (3.5-5.7) Ao Diam 3.60 cm (2.0-3.7) LVDs 6.09 cm (3.5-5.7) IVSd 0.62 cm (0.6-1.1) PWd 0.75 cm (0.6-1.1) EF (Teich) 37.40% FS 18.70% EDV (Teich) 297.40 mL TAPSE 2.86 (<1.7) ESV (Teich) 186.20 mL LV Diastology E Decel Time 150.00 (160-240 msec) E/A Ratio 0.8 MED E' 6.40 (< 7 cm/sec) E'/MED E' Ratio 15.23 (>14) LAT E' 10.50 (<10 cm/sec) E/LAT E' Ratio 9.29 (>14) Aortic Valve AO Peak GR. 9.00 mmHg Mitral Valve MV E Max Adriano. 98.00 (40-130 cm/s) MV A Velocity 119.00 (40-130 cm/s) E/A Ratio 0.82 MV Decel. Time 150.00 (160-240 ms) MV PHT 44.00 ms Pulmonary Valve PV Peak Velocity 92.00 (50-150 cm/s) Tricuspid Valve TR P. Velocity 267.00 cm/s RAP Estimate 10.00 mmHg RVSP 38.50 mmHg Left Ventricle Niccoli difficult study because of the patient fact in poor acoustic windows. Left atrium is mildly enlarged, left ventricle is mildly dilated, severe reduced left ventricular systolic function, estimated ejection fraction approximately 25%, there is marked hypokinesis involving the basal septum, inferior inferior basal wall. Diastolic parameters are inconclusive. Right Ventricle Right atrium and right ventricle mildly dilated with normal contractility, pacemaker leads in the right atrium and right ventricle. Aortic Valve Aortic valve is minimally thickened and fibrosed there is no aortic stenosis or aortic insufficiency. Mitral Valve Mitral valve leaflets are minimally thickened, there is mild to moderate mitral regurgitation. Tricuspid Valve Tricuspid valve grossly normal, there is mild tricuspid regurgitation, tricuspid regurgitation jet velocity is inadequate for calculation of the right ventricular systolic pressure. Pulmonic Valve Pulmonic valve is poorly visualized. Great Vessels Aortic root is normal size. Inferior vena cava is poorly visualized. Pericardium No significant pericardial effusion noted. Conclusion 1. Technically difficult study because of the patient factors and poor acoustic windows. 2. Mild biatrial lodgment, dilated left ventricle, severe reduced left ventricular systolic function, estimated ejection fraction 25% with multiple segmental wall motion abnormality described above, diastolic parameters are inconclusive. 3. Mild to moderate mitral and mild tricuspid regurgitation. 4. No significant pericardial effusion. 5. Inferior vena cava is poorly visualized. Electronically signed by : Antwon Angulo MD 12/16/2021 19:27:51
--- NOTE | 2021-12-16 11:06 | PC.NURSE ---
medications not given bc pt is going home. see mar
--- NOTE | 2021-12-16 12:15 | PC.NURSE ---
Pt instructed to take home meds as ordered upon d/c.
--- NOTE | 2021-12-17 13:28 | CARE MANAGER ---
Contacted patient related to hospital discharge. Patient states that he is doing very well. Denies any chest pain. Patient is aware of follow up appointments. Denies other questions or concerns. KO Orourke
== END 2021-12-16 12:00 | disposition home or self-care (01) ==
PROVIDERS: Internal Medicine; Admitting Provider Emergency Medicine; PCP Emergency Medicine; Visit Provider Emergency Medicine
DX: R07.9 Chest pain, unspecified (principal); I25.110 Atherosclerotic heart disease of native coronary artery with unstable angina pectoris; I25.5 Ischemic cardiomyopathy; I50.22 Chronic systolic (congestive) heart failure; I11.0 Hypertensive heart disease with heart failure; Z95.0 Presence of cardiac pacemaker; I48.91 Unspecified atrial fibrillation; Z95.5 Presence of coronary angioplasty implant and graft; Z79.01 Long term (current) use of anticoagulants; Z20.822 Contact with and (suspected) exposure to COVID-19
CPT/HCPCS: G0378; G0379; 80048; 84484; 85007; 85025; 93005; 93306; 93458; 99152; C1725; C1769; C9803; J1644; Q9967; U0003; U0005

== ENCOUNTER → 2021-12-23 10:32 | Outpatient (CLI) | payer MEDICARE, SELFPAY ==
[2021-12-23 11:33] LABS: Chloride 101 mmol/L (98-107); Potassium 4.4 mmoL/L (3.5-5.1)
[2021-12-23 11:34] LABS: Sodium 137 mmol/L (136-145)
[2021-12-23 11:36] LABS: Blood Urea Nitrogen 34 mg/dl (9-20); Estimated Glomerular Filt Rate 54 ml/min (>60); GFR (African American) 65 ML/MIN (>60)
[2021-12-23 11:37] LABS: Anion Gap 9.4 mEq/L (5-15); Calcium 8.8 mg/dl (8.4-10.2); Carbon Dioxide 31 mmol/L (22.0-30.0); Glucose 108 mg/dl (74-100)
== END ==
PROVIDERS: PCP Family Medicine; Visit Provider Nurse Practitioner Family
DX: E78.2 Mixed hyperlipidemia (principal)
CPT/HCPCS: 36415; 80048

== ENCOUNTER → 2022-01-13 11:14 | Outpatient (CLI) | payer MEDICARE, SELFPAY ==
[2022-01-13 12:06] LABS: Chloride 99 mmol/L (98-107); Potassium 4.6 mmoL/L (3.5-5.1); Sodium 137 mmol/L (136-145)
[2022-01-13 12:10] LABS: Anion Gap 8.6 mEq/L (5-15); Carbon Dioxide 34 mmol/L (22.0-30.0); Glucose 125 mg/dl (74-100)
[2022-01-13 12:11] LABS: Blood Urea Nitrogen 33 mg/dl (9-20); Calcium 8.5 mg/dl (8.4-10.2); Estimated Glomerular Filt Rate 54 ml/min (>60); GFR (African American) 65 ML/MIN (>60)
== END ==
PROVIDERS: PCP Family Medicine; Visit Provider Physician Assistant
DX: I11.0 Hypertensive heart disease with heart failure (principal); I25.10 Atherosclerotic heart disease of native coronary artery without angina pectoris; I25.5 Ischemic cardiomyopathy; I50.20 Unspecified systolic (congestive) heart failure; I50.22 Chronic systolic (congestive) heart failure; N18.9 Chronic kidney disease, unspecified; R06.02 Shortness of breath; R94.30 Abnormal result of cardiovascular function study, unspecified; Z95.810 Presence of automatic (implantable) cardiac defibrillator
CPT/HCPCS: 36415; 80048

== ENCOUNTER 2022-06-15 15:34 | Emergency (ER) | payer MEDICARE, SELFPAY ==
[2022-06-15 15:35] VITALS: BP 99/52; PULSE 81; RESP 18; TEMP 37.1; O2SAT 96; BMI 30.1
--- NOTE | 2022-06-15 16:00 | HMH.EDGENADL ---
Discharge Plan Disposition Patient Disposition: Home, Self-Care Condition: Good Prescriptions Prescriptions: New ondansetron 4 mg tablet,disintegrating 4 mg PO Q8H PRN (Reason: nausea and vomiting) 4 Days Qty: 12 0RF No Action ropinirole 3 mg tablet 3 mg PO HS tizanidine 4 mg tablet 8 mg PO HS Label Comments: 1 in AM & 2 in PM promethazine 25 mg tablet 25 mg PO TIDP PRN (Reason: Nausea) pregabalin 75 mg capsule 75 mg PO BID Aimovig Autoinjector 140 mg/mL auto-injector 140 mg SQ MONTHLY Label Comments: INJECT 140 MG/ML SUBCUTANEOUS ONCE A MONTH 30 DAYS ranolazine 1,000 mg tablet extended release 12 hr 1,000 mg PO BID torsemide 20 mg tablet 40 mg PO BID PRN Label Comments: TAKE 2 TABLETS BY MOUTH TWICE DAILY FOR FLUID omeprazole 20 mg capsule,delayed release(DR/EC) 20 mg PO DAILY oxycodone 10 mg tablet 10 mg PO Q8HP PRN (Reason: Moderate Pain) pramipexole 0.5 mg tablet 0.5 mg PO TID Jardiance 10 mg tablet 10 mg PO DAILY Qty: 90 1RF torsemide 100 mg tablet 100 mg PO DAILY carvedilol 25 mg tablet See Rx Instructions .ROUTE .COMPLEX Qty: 60 3RF Dose Instruction: TAKE ONE (1) TABLET BY MOUTH TWICE DAILY MUST ADMINISTER WITH A MEAL/FOOD Rx Instructions: TAKE ONE (1) TABLET BY MOUTH TWICE DAILY MUST ADMINISTER WITH A MEAL/FOOD Xarelto 20 mg tablet See Rx Instructions .ROUTE .COMPLEX Qty: 30 5RF Dose Instruction: TAKE 1 TABLET BY MOUTH EVERY DAY Rx Instructions: TAKE 1 TABLET BY MOUTH EVERY DAY nitroglycerin 0.4 mg tablet, sublingual See Rx Instructions .ROUTE .COMPLEX Qty: 25 2RF Dose Instruction: DISSOLVE ONE TABLET UNDER TONGUE NEEDED FOR CHEST PAIN. MAY REPEAT EVERY FIVE (5) MINS X THREE (3) DOSES. NO RELIEF, CALL MD Rx Instructions: DISSOLVE ONE TABLET UNDER TONGUE NEEDED FOR CHEST PAIN. MAY REPEAT EVERY FIVE (5) MINS X THREE (3) DOSES. NO RELIEF, CALL MD clopidogrel 75 mg tablet See Rx Instructions .ROUTE .COMPLEX Qty: 90 5RF Dose Instruction: TAKE 1 TABLET BY MOUTH EVERY DAY Rx Instructions: TAKE 1 TABLET BY MOUTH EVERY DAY trazodone 100 MG tablet 100 mg PO HS ketoconazole 200 MG tablet 200 mg PO DAILY ondansetron HCl 4 MG tablet 4 mg PO BIDP PRN (Reason: Nausea And Vomiting) prednisone 20 MG tablet 20 mg PO DAILY ergocalciferol (vitamin D2) 50,000 UNIT capsule 50,000 units PO WEEKLY Label Comments: TAKE 1 CAPSULE BY MOUTH EVERY WEEK testosterone cypionate 200 MG/ML oil 150 mg IM DIRECTED tadalafil 5 MG tablet 5 mg PO DAILY sacubitril-valsartan 1 EACH tablet 1 tab PO BID Referrals Follow up/Referrals: Vitaly Suazo MD [Primary Care Provider] - See instructions Activity Restrictions/Add. Instructions Additional Instructions/Restrictions: You were evaluated in the emergency department today for diarrhea and dehydration. Please make sure that you orally hydrate at home. Follow-up with your primary care provider over the next 48 hours for reassessment. Return to the ER for any new or worsening symptoms. supervisor purification your prescription for Zofran to take as needed for nausea and vomiting. Clinical Impressions Clinical Impression: Acute dehydration Diarrhea Qualifiers: Diarrhea type: presumed infectious Qualified Code(s): R19.7 - Diarrhea, unspecified Instructions Patient Instructions: DI for Diarrhea and Traveler's Diarrhea -- Adult, DI for Nausea -- Adult Discharge ED Provider: Melina Plascencia General Adult HPI General Chief complaint: Nausea/Vomiting/Diarrhea Stated complaint: low bp Time Seen by Provider: 06/15/22 15:38 Mode of Arrival: Ambulatory Source of Information: Patient Limitations: No Limitations Description of Symptoms (Recalled from ER Triage Doc. by RN): c/o diarrhea, nausea and abdominal pain for 2 weeks, states that he spoke with Dr. Richardson
[2022-06-15 16:10] LABS: Basophils % 0.6 % (0.1-2.0); Eosinophils # 0.1 K/mm3 (0.0-0.4); Eosinophils % 2.9 % (0.1-12.0); Hematocrit 41.4 % (42.0-52.0); Hemoglobin 13.5 g/dL (14.1-18.0); Lymphocytes # 0.4 K/mm3 (0.7-4.5); Lymphocytes % 9.5 % (10-50); Mean Corpuscular HGB Conc 32.7 g/dL (31.8-35.4); Mean Corpuscular Hemoglobin 27.3 pg (27.0-31.2); Mean Corpuscular Volume 83.3 fl (80-94); Monocytes # 0.4 K/mm3 (0.1-1.0); Monocytes % 8.5 % (1.7-9.3); Neutrophils # 3.4 K/mm3 (1.8-7.8); Neutrophils % 78.6 % (37.0-80.0); Platelet Count 120 K/mm3 (142-424); Red Blood Count 4.97 M/mm3 (4.60-6.20); Red Cell Distribution Width 18.1 % (11.5-17.5); White Blood Count 4.3 K/mm3 (4.8-10.8)
--- NOTE | 2022-06-15 16:12 | ECG_ITS ---
APPROVED REPORT Exam: Resting ECG HR:71 bpm ECG Measurements Heart Rate 71 AXES DC 201 P 50 QRSd 111 QRS 47 QT 415 T 176 QTc 437 Conclusion SINUS RHYTHM WITH OCCASIONAL VENTRICULAR PREMATURE COMPLEXES POSSIBLE INFERIOR MYOCARDIAL INFARCTION , PROBABLY OLD [30 ms Q WAVE IN II/aVF] BORDERLINE ECG UNCONFIRMED REPORT Electronically signed by : Mayank Ozuna MD 06/17/2022 20:23:59
[2022-06-15 16:13] LABS: Chloride 107 mmol/L (98-107); Sodium 138 mmol/L (136-145)
[2022-06-15 16:14] LABS: Potassium 4.1 mmoL/L (3.5-5.1)
[2022-06-15 16:16] LABS: Alanine Aminotransferase 22 U/L (12-78); Alkaline Phosphatase 66 U/L (38-126); Anion Gap 10.1 mEq/L (5-15); Aspartate Amino Transferase 36 U/L (17-59); Bilirubin,Total 0.5 mg/dl (0.2-1.3); Blood Urea Nitrogen 27 mg/dl (9-20); Calcium 8.5 mg/dl (8.4-10.2); Carbon Dioxide 25 mmol/L (22.0-30.0); Creatinine Clearance Estimated 44 mL/min (50-200); Estimated Glomerular Filt Rate 39 ml/min (>60); GFR (African American) 48 ML/MIN (>60); Glucose 63 mg/dl (74-100); Lipase 37 U/L (23-300)
[2022-06-15 16:17] LABS: Albumin Level 3.7 g/dl (3.5-5.0); Albumin/Globulin Ratio 1.4 (1.1-1.8); Globulin 2.6 g/dL (1.3-3.2); Lactic Acid 0.6 mmol/L (0.7-2.1); Magnesium 1.9 mg/dl (1.6-2.3); Total Protein,Serum 6.3 g/dl (6.3-8.2)
[2022-06-15 16:30] VITALS: BP 97/55; PULSE 71; RESP 16; O2SAT 98
[2022-06-15 16:35] LABS: Troponin I < 0.01 ng/ml (0.00-0.034)
[2022-06-15 17:00] VITALS: BP 107/52; PULSE 64; RESP 16; O2SAT 99
[2022-06-15 17:31] VITALS: BP 100/54; PULSE 70; RESP 16; O2SAT 100
[2022-06-15 18:00] VITALS: BP 109/57; PULSE 66; RESP 17; O2SAT 98
--- NOTE | 2022-06-15 18:55 | PC.NURSE ---
Dr Fish consulted with patient.
[2022-06-15 18:59] VITALS: BP 108/65; PULSE 64; RESP 17; TEMP 37.1; O2SAT 98
== END 2022-06-15 19:01 | disposition home or self-care (01) ==
PROVIDERS: Emergency Provider Emergency Medicine; PCP Family Medicine
DX: R11.2 Nausea with vomiting, unspecified (principal); R19.7 Diarrhea, unspecified; R55 Syncope and collapse; I95.9 Hypotension, unspecified; I50.22 Chronic systolic (congestive) heart failure; I31.9 Disease of pericardium, unspecified; I25.10 Atherosclerotic heart disease of native coronary artery without angina pectoris; M62.838 Other muscle spasm; G47.33 Obstructive sleep apnea (adult) (pediatric); Z79.01 Long term (current) use of anticoagulants; Z79.02 Long term (current) use of antithrombotics/antiplatelets; Z79.52 Long term (current) use of systemic steroids; Z79.899 Other long term (current) drug therapy; Z88.4 Allergy status to anesthetic agent; Z88.8 Allergy status to other drugs, medicaments and biological substances
CPT/HCPCS: 80053; 83605; 83690; 83735; 84484; 85025; 93005; 96361; 96374; 99284; J2405

== ENCOUNTER 2022-12-30 16:39 | Observation (INO) | payer MEDICARE, SELFPAY ==
[2022-12-30] VITALS (8 sets, daily range): BP systolic 95–125; BP diastolic 52–70; PULSE 50–84; RESP 11–18; TEMP 36.7–37.8; O2SAT 95–97; BMI 29.9; BMI 31.0
--- NOTE | 2022-12-30 16:41 | ECG_ITS ---
APPROVED REPORT Exam: Resting ECG HR:84 bpm ECG Measurements Heart Rate 84 AXES SD 186 P 48 QRSd 114 QRS 75 QT 363 T -38 QTc 404 Conclusion SINUS RHYTHM WITH OCCASIONAL VENTRICULAR PREMATURE COMPLEXES LOW QRS VOLTAGE IN PRECORDIAL LEADS [QRS DEFLECTION < 1.0 mV IN CHEST LEADS] MODERATE INTRAVENTRICULAR CONDUCTION DELAY [110+ ms QRS DURATION] MODERATE T-WAVE ABNORMALITY, CONSIDER INFERIOR ISCHEMIA [-0.1+ mV T-WAVE IN II/aVF] ABNORMAL ECG UNCONFIRMED REPORT Electronically signed by : Mayank Ozuna MD 12/30/2022 21:11:06
--- NOTE | 2022-12-30 17:03 | XR_ITS ---
PROCEDURE INFORMATION: Exam: XR Chest Exam date and time: 12/30/22 05:08 PM Age: 77 years old Clinical indication: Dyspnea TECHNIQUE: Imaging protocol: Radiologic exam of the chest. Views: 1 view. COMPARISON: DX XR CHEST 2V 03/20/20 12:01 PM FINDINGS: Tubes, catheters and devices: Left subclavian pacemaker leads overlie the right atrium and right ventricle. Lungs: Right lower lobe infiltrate. Pleural spaces: Unremarkable. No pleural effusion. No pneumothorax. Heart/Mediastinum: Unremarkable. No cardiomegaly. Bones/joints: Unremarkable. IMPRESSION: Right lower lobe infiltrate.
--- NOTE | 2022-12-30 17:08 | HMH.EDGENADL ---
Discharge Plan Disposition Chief Complaint: Upper Respiratory Infection Prescriptions Prescriptions: No Action ropinirole 3 mg tablet 3 mg PO HS tizanidine 4 mg tablet 8 mg PO HS Patient Comments: 1 in AM & 2 in PM promethazine 25 mg tablet 25 mg PO TIDP PRN (Reason: Nausea) pregabalin 75 mg capsule 75 mg PO BID Aimovig Autoinjector 140 mg/mL auto-injector 140 mg SQ MONTHLY Patient Comments: INJECT 140 MG/ML SUBCUTANEOUS ONCE A MONTH 30 DAYS ranolazine 1,000 mg tablet extended release 12 hr 1,000 mg PO BID omeprazole 20 mg capsule,delayed release(DR/EC) 20 mg PO DAILY oxycodone 10 mg tablet 10 mg PO Q8HP PRN (Reason: Moderate Pain) pramipexole 0.5 mg tablet 0.5 mg PO TID Jardiance 10 mg tablet 10 mg PO DAILY Qty: 90 1RF dicyclomine 20 mg tablet 20 mg PO BID sildenafil (pulm.hypertension) 20 mg tablet 20 mg PO PRN Patient Comments: TAKE ONE TABLET BY MOUTH DAILY NEEDED Xarelto 20 mg tablet See Rx Instructions .ROUTE .COMPLEX Qty: 30 5RF Dose Instruction: TAKE 1 TABLET BY MOUTH EVERY DAY Rx Instructions: TAKE 1 TABLET BY MOUTH EVERY DAY nitroglycerin 0.4 mg tablet, sublingual See Rx Instructions .ROUTE .COMPLEX Qty: 25 2RF Dose Instruction: DISSOLVE ONE TABLET UNDER TONGUE NEEDED FOR CHEST PAIN. MAY REPEAT EVERY FIVE (5) MINS X THREE (3) DOSES. NO RELIEF, CALL MD Rx Instructions: DISSOLVE ONE TABLET UNDER TONGUE NEEDED FOR CHEST PAIN. MAY REPEAT EVERY FIVE (5) MINS X THREE (3) DOSES. NO RELIEF, CALL MD clopidogrel 75 mg tablet See Rx Instructions .ROUTE .COMPLEX Qty: 90 5RF Dose Instruction: TAKE 1 TABLET BY MOUTH EVERY DAY Rx Instructions: TAKE 1 TABLET BY MOUTH EVERY DAY carvedilol 25 mg tablet See Rx Instructions .ROUTE .COMPLEX Qty: 180 1RF Dose Instruction: TAKE ONE (1) TABLET BY MOUTH TWICE DAILY MUST ADMINISTER WITH A MEAL/FOOD Rx Instructions: TAKE ONE (1) TABLET BY MOUTH TWICE DAILY MUST ADMINISTER WITH A MEAL/FOOD torsemide 20 mg tablet 40 mg PO BID PRN (Reason: edema) Qty: 120 5RF Patient Comments: TAKE 2 TABLETS BY MOUTH TWICE DAILY FOR FLUID torsemide 100 mg tablet 100 mg PO DAILY Qty: 90 3RF trazodone 100 MG tablet 100 mg PO HS ondansetron 4 mg tablet,disintegrating 4 mg PO Q8H PRN (Reason: nausea and vomiting) 4 Days Qty: 12 0RF ketoconazole 200 MG tablet 200 mg PO DAILY ergocalciferol (vitamin D2) 50,000 UNIT capsule 50,000 units PO WEEKLY Patient Comments: TAKE 1 CAPSULE BY MOUTH EVERY WEEK testosterone cypionate 200 MG/ML oil 150 mg IM DIRECTED tadalafil 5 MG tablet 5 mg PO DAILY sacubitril-valsartan 1 EACH tablet 1 tab PO BID Referrals Follow up/Referrals: Vitaly Suazo MD [Primary Care Provider] - See instructions Clinical Impressions Clinical Impression: CAP (community acquired pneumonia), Sepsis Discharge ED Provider: Elissa Erickson General Adult HPI General Chief complaint: Upper Respiratory Infection Stated complaint: chest pain Time Seen by Provider: 12/30/22 16:53 Mode of Arrival: Ambulatory Source of Information: Patient Limitations: No Limitations Description of Symptoms (Recalled from ER Triage Doc. by RN): Presents to ED with complaints of cough, SOB, and body aches that started this morning. Had a PCP appointment today at 1300 and was instructed to go to ED for further evaluation. Patient further reports that his lungs feel like they are on fire . Denies hx of COPD/asthma. Also denies fever [employer]. History of Present Illness HPI narrative: Patient is a 77-year-old male presenting today with what he initially describes as chest discomfort. States that he has had some morning nausea over the last 3 weeks but over the last few days has been having shortness of breath cough body aches. States that he feels like his lungs ar
[2022-12-30 17:14] LABS: Coronavirus 19, PCR Not Detected (NotDetected); Influenza A, PCR Not Detected (NotDetected); Influenza B, PCR Not Detected (NotDetected)
[2022-12-30 17:20] LABS: Alanine Aminotransferase 22 U/L (12-78); Albumin/Globulin Ratio 1.5 (1.1-1.8); Alkaline Phosphatase 55 U/L (38-126); Anion Gap 11.8 mEq/L (5-15); Aspartate Amino Transferase 28 U/L (17-59); Bilirubin,Total 0.8 mg/dl (0.2-1.3); Blood Urea Nitrogen 40 mg/dl (9-20); Calcium 8.4 mg/dl (8.4-10.2); Carbon Dioxide 26 mmol/L (22.0-30.0); Chloride 104 mmol/L (98-107); Creatinine Clearance Estimated 45 mL/min (50-200); Estimated Glomerular Filt Rate 42 ml/min (>60); GFR (African American) 51 ML/MIN (>60); Globulin 2.7 g/dL (1.3-3.2); Glucose 114 mg/dl (74-100); Potassium 4.8 mmoL/L (3.5-5.1); Sodium 137 mmol/L (136-145); Total Protein,Serum 6.7 g/dl (6.3-8.2)
[2022-12-30 17:32] LABS: Basophils % 0.1 % (0.1-2.0); Eosinophils # 0.1 K/mm3 (0.0-0.4); Eosinophils % 0.5 % (0.1-12.0); Hematocrit 48.3 % (42.0-52.0); Hemoglobin 15.4 g/dL (14.1-18.0); Lymphocytes # 0.5 K/mm3 (0.7-4.5); Lymphocytes % 3.1 % (10-50); Mean Corpuscular HGB Conc 31.9 g/dL (31.8-35.4); Mean Corpuscular Hemoglobin 26.1 pg (27.0-31.2); Mean Platelet Volume 9.4 fl (7.4-10.4); Monocytes # 0.5 K/mm3 (0.1-1.0); Monocytes % 3.3 % (1.7-9.3); Neutrophils # 14.4 K/mm3 (1.8-7.8); Platelet Count 104 K/mm3 (142-424); Red Blood Count 5.89 M/mm3 (4.60-6.20); Red Cell Distribution Width 18.2 % (11.5-17.5); White Blood Count 15.4 K/mm3 (4.8-10.8)
[2022-12-30 17:36] LABS: Procalcitonin 0.151 ng/mL (0.0-2.0); Troponin I < 0.01 ng/ml (0.00-0.034)
[2022-12-30 17:38] LABS: MANUAL DIFFERENTIAL MANUAL DIFFERENTIAL (MANUAL DIFF)
[2022-12-30 17:51] LABS: Lymphocytes % 4 % (10-50); Monocytes % 4 % (2-9); Neutrophils % 92 % (42-76); Total Cells Counted 100
[2022-12-30 17:52] LABS: Platelet Estimate Slight Decrease; RBC Morphology Normal
--- NOTE | 2022-12-30 17:58 | PC.NURSE ---
notified traffic warehouse supervisor of admission
--- NOTE | 2022-12-30 18:51 | PC.NURSE ---
Pt. up to the floor from the ER.
[2022-12-30 19:30] LABS: Hemoglobin A1C 5.1 % (4.0-6.0)
--- NOTE | 2022-12-30 19:44 | EXP.HP ---
History of Present Illness *Admission Date: 12/30/22 *Reason for visit:: Pneumonia, CAP *History of present illness: 77 year old male presented to ED with c/o SOA, chills, BRUMFIELD, and nausea since yesterday. Pt reports nausea and chills became worse this morning. PMHX of CHF, Pulmonary htn, restless leg syndrome, GERD, and cardiomyopathy. The pt states he has been SOA for months. Went to see PCP this afternoon and was instructed to come to ED for further evaluation. In the ED he reported the feeling of his lungs being on fire. Pt states he has a cardiac history. Denies any abd pain, vomiting, or diarrhea. His chest xray in the ED revealed right lower lobe infiltrates w/ a WBC of 15.4. He is stable upon admission requiring no oxygen. He has a history of CHF with an EF of 25%. PSI/PORT score of 116 and is class 4. The ER physician spoke with Dr. Fish and Dr. Decker. The patient was medically admitted to the hospitalist team for further medical management with a cardiology consult. [facility] Disclaimer: The information contained in this section may have been updated after the patient was seen, as this information can be updated by other users. Medical History (Updated 12/30/22 @ 20:00 by PADMINI Worthington) Afib Arthritis Blockage of coronary artery of heart CAD (coronary artery disease) Cardiomyopathy Crescendo angina Dizziness Fibromyalgia GERD (gastroesophageal reflux disease) HTN (hypertension) Near syncope GERMAN (obstructive sleep apnea) Pericarditis Pulmonary HTN RLS (restless legs syndrome) Surgical History (Updated 12/30/22 @ 18:25 by Radha Preston RN) History of cardiac cath History of carpal tunnel release History of cholecystectomy Family History Other Heart attack Hyperlipidemia Hypertension Social History Smoking Status: Never smoker second hand exposure: No alcohol intake: never substance use type: denies use current occupational status: retired Travel in the last 8 weeks: None household members: spouse housing: house current occupational exposures/hazards: No caffeine: No Review of Systems Review of Systems Review of systems:: pertinent systems reviewed and negative unless documented below Constitutional Constitutional: Reports chills, Reports headache(s) and Reports malaise Eyes Eyes: Reports system reviewed and no additional complaints, except as documented ENT Ears, Nose, Mouth, and Throat: Reports system reviewed and no additional complaints, except as documented and Reports headache(s) *Cardiovascular Cardiovascular: Denies chest pain at rest and Reports dyspnea *Respiratory Respiratory: Reports dyspnea *Gastrointestinal Gastrointestinal: Reports system reviewed and no additional complaints, except as documented *Genitourinary Genitourinary: Reports system reviewed and no additional complaints, except as documented *Musculoskeletal Musculoskeletal: Reports system reviewed and no additional complaints, except as documented *Neurologic Neurologic: Reports headache(s) Meds Home Medications and Allergies Home Medications Medication Instructions Recorded Confirmed Type omeprazole 20 mg capsule,delayed 20 mg PO DAILY GERD 10/16/18 12/30/22 History release ropinirole 3 mg tablet 3 mg PO HS Restless leg 10/16/18 12/30/22 History promethazine 25 mg tablet 25 mg PO TIDP PRN Nausea 04/17/19 12/30/22 History oxycodone 10 mg tablet 10 mg PO Q8HP PRN Moderate Pain 08/14/19 12/30/22 History tizanidine 4 mg tablet 8 mg PO HS MUSCLE SPASM 08/14/19 12/30/22 History pramipexole 0.5 mg tablet 0.5 mg PO TID PARKINSONS 03/20/20 12/30/22 History pregabalin 75 mg capsule 75 mg PO BID Pain 09/03/20 12/30/22 History trazodone 100 mg tablet 100 mg PO HS sleep 02/05/21 12/30/22 History erenumab-aooe 140 mg/mL 140 mg SQ MONTHLY Headache 03/24/21 12/30/22 History subcutaneous
[2022-12-30 21:07] LABS: Troponin I < 0.01 ng/ml (0.00-0.034)
--- NOTE | 2022-12-30 22:49 | PC.NURSE ---
pt stated he will take a shower tomorrow day, 12/30/22. A&OX4. last bm 12/30/22. no c/o chest pain or soa this evening. RA. pacemaker left subclavian, NSR with tele. needs a sputum and urine. pt educated to use hat in toilet when voiding, and use specimen cup at bedside for sputum. IS at bedside and educated pt on how to use and the benefits. home meds in drawer.
[2022-12-30 23:50] LABS: Troponin I < 0.01 ng/ml (0.00-0.034)
[2022-12-31] VITALS: BP 106/50; PULSE 51; RESP 18; TEMP 37.2; O2SAT 100
--- NOTE | 2022-12-31 01:03 | PC.NURSE ---
pt stated he will take a shower tomorrow day, 12/30/22. A&OX4. last bm 12/30/22. no c/o chest pain or soa this evening. RA. needs a sputum and urine. pt educated to use hat in toilet when voiding, and use specimen cup at bedside for sputum. IS at bedside and educated pt on how to use and the benefits. home meds in drawer.
[2022-12-31 04:00] VITALS: BP 104/55; PULSE 50; PULSE 73; RESP 20; TEMP 36.8; O2SAT 97; BMI 31.5
--- NOTE | 2022-12-31 06:18 | PC.NURSE ---
pt up to chair for breakfast
[2022-12-31 06:27] LABS: Basophils % 0.1 % (0.1-2.0); Eosinophils # 0.2 K/mm3 (0.0-0.4); Eosinophils % 1.1 % (0.1-12.0); Hematocrit 45.9 % (42.0-52.0); Hemoglobin 14.5 g/dL (14.1-18.0); Lymphocytes # 0.6 K/mm3 (0.7-4.5); Lymphocytes % 4.6 % (10-50); Mean Corpuscular HGB Conc 31.6 g/dL (31.8-35.4); Mean Corpuscular Hemoglobin 26.5 pg (27.0-31.2); Mean Platelet Volume 9.5 fl (7.4-10.4); Monocytes # 0.5 K/mm3 (0.1-1.0); Monocytes % 3.4 % (1.7-9.3); Neutrophils # 12.6 K/mm3 (1.8-7.8); Neutrophils % 90.8 % (37.0-80.0); Platelet Count 99 K/mm3 (142-424); Red Blood Count 5.47 M/mm3 (4.60-6.20); Red Cell Distribution Width 18.3 % (11.5-17.5); White Blood Count 13.8 K/mm3 (4.8-10.8)
[2022-12-31 06:29] LABS: MANUAL DIFFERENTIAL MANUAL DIFFERENTIAL (MANUAL DIFF)
[2022-12-31 06:33] LABS: Alanine Aminotransferase 19 U/L (12-78); Albumin Level 3.5 g/dl (3.5-5.0); Albumin/Globulin Ratio 1.4 (1.1-1.8); Alkaline Phosphatase 42 U/L (38-126); Anion Gap 12.4 mEq/L (5-15); Aspartate Amino Transferase 22 U/L (17-59); Bilirubin,Total 0.7 mg/dl (0.2-1.3); Blood Urea Nitrogen 37 mg/dl (9-20); Carbon Dioxide 25 mmol/L (22.0-30.0); Chloride 106 mmol/L (98-107); Creatinine Clearance Estimated 51 mL/min (50-200); Estimated Glomerular Filt Rate 46 ml/min (>60); GFR (African American) 55 ML/MIN (>60); Globulin 2.5 g/dL (1.3-3.2); Glucose 106 mg/dl (74-100); Magnesium 2.4 mg/dl (1.6-2.3); Potassium 4.4 mmoL/L (3.5-5.1); Sodium 139 mmol/L (136-145)
[2022-12-31 06:38] LABS: INR 1.08 (0.9-1.1); Prothrombin Time 11.6 seconds (10.1-12.5)
[2022-12-31 06:56] LABS: Eosinophils % 1 % (0-3); Lymphocytes % 3 % (10-50); Monocytes % 6 % (2-9); Neutrophils % 90 % (42-76); Platelet Estimate Moderate Decrease; RBC Morphology Normal; Total Cells Counted 100
[2022-12-31 07:40] LABS: Appearance,Urine CLEAR (Clear); Bilirubin,Urine Negative (Negative); Blood, Urine Negative (Negative); Color,Urine YELLOW (Yellow); Glucose,Urine (UA) Negative (Negative); Ketones,Urine Negative (Negative); Leukocyte Esterase,Urine TRACE (Negative); Microscopic, Urine URINE MICROSCOPIC (MICROSCOPIC); Nitrate,Urine Negative (Negative); Protein,Urine Negative (Negative); Urobilinogen,Urine 0.2 EU/dl (0.2)
[2022-12-31 07:51] LABS: Bacteria,Urine Trace /lpf; Squamous Epithelial Cell,Urine Occasional #/hpf (0-5); WBC,Urine Occasional #/hpf (0-3)
[2022-12-31 08:00] VITALS: BP 109/48; PULSE 50; PULSE 70; RESP 18; TEMP 36.8; O2SAT 96; O2SAT 99
--- NOTE | 2022-12-31 08:35 | EXP.DC.SUM ---
General Admission date:: 12/30/22 Discharge date: 12/31/22 HPI HPI HPI: 77 year old male presented to ED with c/o SOA, chills, BRUMFIELD, and nausea since yesterday. Pt reports nausea and chills became worse this morning. PMHX of CHF, Pulmonary htn, restless leg syndrome, GERD, and cardiomyopathy. The pt states he has been SOA for months. Went to see PCP this afternoon and was instructed to come to ED for further evaluation. In the ED he reported the feeling of his lungs being on fire. Pt states he has a cardiac history. Denies any abd pain, vomiting, or diarrhea. His chest xray in the ED revealed right lower lobe infiltrates w/ a WBC of 15.4. He is stable upon admission requiring no oxygen. He has a history of CHF with an EF of 25%. PSI/PORT score of 116 and is class 4. The ER physician spoke with Dr. Fish and Dr. Decker. The patient was medically admitted to the hospitalist team for further medical management with a cardiology consult. Hospital Course Hospital Course Hospital Course: 77 year old male presented to ED with c/o SOA, chills, BRUMFIELD, and nausea since yesterday. Pt reports nausea and chills became worse this morning. The pt states he has been SOA for months. Went to see PCP this afternoon and was instructed to come to ED for further evaluation. His chest xray in the ED revealed right lower lobe infiltrates w/ a WBC of 15.4. He is stable upon admission requiring no oxygen. He has a history of CHF with an EF of 25%. PSI/PORT score of 116 and is class 4. The ER physician spoke with Dr. Fish and Dr. Decker. The patient was medically admitted to the hospitalist team for further medical management with a cardiology consult. The plan as to follow: CAP -Patient presented with pneumonia, right lower lobe on imaging. Started on empiric antibiotics with ceftriaxone and azithromycin. Responded well. Continued to have no oxygen requirement overnight. White cell count improved from 15.4-13.8 with repeat labs in the morning. Given patient's clinical stability, will transition to oral antibiotics to complete azithromycin 500 mg x 3 days and cefdinir 300 mg twice daily for another 6 days. Follow-up with cardiology next week as previously scheduled for reevaluation. Would benefit from repeat labs at that time to monitor for stability and creatinine and improvement in white cell count. CHF Cardiomyopathy Pulmonary HTN -Cardiac work up in the ED revealed abnormal EKG and negative troponin. Numerous baseline abnormalities including heart failure with reduced ejection fraction of 25%, severe pulmonary hypertension. Cardiology evaluated patient. No change to medications at this time. Troponins negative. Stable for discharge home with close follow-up next week as previously scheduled. Continue home meds with no changes. GERD: Continue home PPI Restless leg syndrome: Continue home regimen Stable for discharge home. Extensive discussion about following up with symptoms worsen. Has an appointment scheduled cardiology next Tuesday already. Informed him to keep this appointment for repeat exam. Spent 35 minutes in discharge counseling and direct care with patient. Exam Data for Last 24 hours Vital signs and Labs for Last 24 Hours: Temp Pulse Resp BP Pulse Ox O2 Del Method 98.2 F 50 L 18 109/48 L 99 Room Air 12/31/22 08:00 12/31/22 08:00 12/31/22 08:00 12/31/22 08:00 12/31/22 08:00 12/31/22 08:06 Laboratory Results - last 24 hr 12/30/22 13:20: Lactate 1.0 12/30/22 14:45: WBC 15.4 H, RBC 5.89, Hgb 15.4, Hct 48.3, MCV 82.0, MCH 26.1 L, MCHC 31.9, RDW 18.2 H, Plt Count 104 L, MPV 9.4, Neut % (Auto) 93.0 H, Lymph % (Auto) 3.1 L, [place] % (Auto) 3.3, Eos % (Auto) 0.5, Baso % (Auto) 0.1, Neut # (Auto) 14.4 H, Lymph # (Auto) 0.5 L, [place] # (Auto) 0.5, Eos # (Auto) 0.1, Baso # (Auto) 0.0, Total Counted 100, Neutrophils % (Manual) 92 H, Lymphocytes % (Manual) 4 L, Monocytes % (Manual) 4, Platelet Estimate Slight decrease, RBC Morphology Norm
--- NOTE | 2022-12-31 08:41 | PC.NURSE ---
COURTESY TECH NOTE; ROUNDED ON PT 0735, PT DENIED NEED FOR DRINK, ASSISTANCE WITH RESTROOM, AND NEED TO REPOSITION IN BED. PT UP TO CHAIR AT THIS TIME. CALL LIGHT WITHIN REACH, NO FURTHER REQUESTS. Luz DIALLO, SRNA
--- NOTE | 2022-12-31 09:09 | EXP.CARD.CON ---
History of Present Illness History of Present Illness Consult date: 12/31/22 Requesting physician: Denys Decker Consult reason: shortness of breath Chief complaint: SOB, cough History of present illness: This is a 77-year-old white gentleman who presented to the emergency department at [facility] with shortness of breath, cough and nausea. The patient states that his symptoms started yesterday morning when he woke up. He states that he was very short of breath. It was worse with exertion and was improving with rest slightly but not resolving. It was associated with a cough which was nonproductive. He states that he had been having some chills and nausea as well. He denies having a fever at home. He denies any chest pain or pressure. He denies any lower extremity edema. He denies any vomiting or diarrhea. He denies any PND or orthopnea. The patient does have a known history of coronary artery disease with systolic congestive heart failure status post AICD placement. The patient was found to have right lower lobe pneumonia. He was subsequently admitted to the hospital. He states that he is feeling much better this morning and his shortness of breath has significantly improved. [facility] Disclaimer: The information contained in this section may have been updated after the patient was seen, as this information can be updated by other users. Medical History (Updated 12/31/22 @ 09:17 by Bre Rojas APRN) Afib Arthritis Blockage of coronary artery of heart CAD (coronary artery disease) Cardiomyopathy Chronic systolic heart failure Crescendo angina Dizziness Elevated left ventricular end-diastolic pressure (LVEDP) Fibromyalgia GERD (gastroesophageal reflux disease) HTN (hypertension) Hyperlipemia senior care (current) use of anticoagulants MR (mitral regurgitation) Near syncope GERMAN (obstructive sleep apnea) Paroxysmal atrial fibrillation Pericarditis Pulmonary HTN Right lower lobe pneumonia RLS (restless legs syndrome) Shortness of Breath Systolic heart failure Surgical History (Updated 12/31/22 @ 09:12 by Bre Rojas APRN) AICD (automatic cardioverter/defibrillator) present History of cardiac cath History of carpal tunnel release History of cholecystectomy Family History Other Heart attack Hyperlipidemia Hypertension Social History Smoking Status: Never smoker second hand exposure: No alcohol intake: never substance use type: denies use current occupational status: retired Travel in the last 8 weeks: None household members: spouse housing: house current occupational exposures/hazards: No caffeine: No Review of Systems Review of Systems Review of systems:: pertinent systems reviewed and negative unless documented below Constitutional Constitutional: Reports system reviewed and no additional complaints, except as documented, Reports chills, Reports headache(s) and Reports lethargy Eyes Eyes: Reports system reviewed and no additional complaints, except as documented ENT Ears, Nose, Mouth, and Throat: Reports system reviewed and no additional complaints, except as documented and Reports headache(s) *Cardiovascular Cardiovascular: Reports system reviewed and no additional complaints, except as documented, Denies chest pain, Reports dyspnea and Reports dyspnea on exertion *Respiratory Respiratory: Reports system reviewed and no additional complaints, except as documented, Reports cough, Reports dyspnea and Reports dyspnea on exertion *Gastrointestinal Gastrointestinal: Reports system reviewed and no additional complaints, except as documented and Reports nausea *Genitourinary Genitourinary: Reports system reviewed and no additional complaints, except as documented *Musculoskeletal Musculoskeletal: Reports system reviewed and no additional complaints, except as
--- NOTE | 2022-12-31 11:02 | P.CONPHA_ITS ---
Pharmacy Intervention Comments: Discharge medication reviewed with patient and patient's - Azithromycin 500mg (told to watch for nausea and diarrhea) - Cefdinir 300mg (told to watch for nausea and diarrhea) Patient will leaf size picker medications at clinic pharmacy
--- NOTE | 2023-01-03 12:44 | CARE MANAGER ---
Contacted patient's family related to hospital discharge. They state his blood pressure is very low and they have increased his fluid intake and it has helped a little. They state he has an appointment with Dr. Fish tomorrow. Transferred to pulmonology as PCP recommended he follow up with them.
== END 2022-12-31 11:50 | disposition home or self-care (01) ==
LOC: ER 17:35 → 2ND 18:20
PROVIDERS: Nurse Practitioner Critical Care Medicine; Admitting Provider Internal Medicine Adolescent Medicine; Emergency Provider Student in an Organized Health Care Education/Training Program; PCP Family Medicine; Visit Provider Internal Medicine Adolescent Medicine
DX: I11.0 Hypertensive heart disease with heart failure; J18.9 Pneumonia, unspecified organism; I50.22 Chronic systolic (congestive) heart failure; I25.10 Atherosclerotic heart disease of native coronary artery without angina pectoris; I25.5 Ischemic cardiomyopathy; G25.81 Restless legs syndrome; I27.20 Pulmonary hypertension, unspecified; K21.9 Gastro-esophageal reflux disease without esophagitis; R06.02 Shortness of breath; E78.2 Mixed hyperlipidemia; Z95.810 Presence of automatic (implantable) cardiac defibrillator; R94.30 Abnormal result of cardiovascular function study, unspecified; I34.0 Nonrheumatic mitral (valve) insufficiency; I48.0 Paroxysmal atrial fibrillation; Z79.02 Long term (current) use of antithrombotics/antiplatelets; Z79.890 Hormone replacement therapy; Z79.899 Other long term (current) drug therapy
CPT/HCPCS: G0378; 36415; 71045; 80053; 81001; 83036; 83605; 83735; 84145; 84484; 85007; 85025; 85610; 87040; 87636; 93005; 93306; 99285; J0456; J0696; J2405

== ENCOUNTER → 2023-02-15 13:20 | Outpatient (CLI) | payer MEDICARE, SELFPAY ==
[2023-02-15 15:23] LABS: Anion Gap 13.1 mEq/L (5-15); Blood Urea Nitrogen 60 mg/dl (9-20); Calcium 9.2 mg/dl (8.4-10.2); Carbon Dioxide 35 mmol/L (22.0-30.0); Chloride 96 mmol/L (98-107); Estimated Glomerular Filt Rate 39 ml/min (>60); GFR (African American) 48 ML/MIN (>60); Glucose 90 mg/dl (74-100); Potassium 4.1 mmoL/L (3.5-5.1); Sodium 140 mmol/L (136-145)
== END ==
PROVIDERS: PCP Family Medicine; Visit Provider Internal Medicine
DX: E78.5 Hyperlipidemia, unspecified (principal); G47.33 Obstructive sleep apnea (adult) (pediatric); I25.10 Atherosclerotic heart disease of native coronary artery without angina pectoris; I34.0 Nonrheumatic mitral (valve) insufficiency; I50.20 Unspecified systolic (congestive) heart failure; I50.22 Chronic systolic (congestive) heart failure; Z95.810 Presence of automatic (implantable) cardiac defibrillator; Z99.89 Dependence on other enabling machines and devices; I42.8 Other cardiomyopathies; I11.0 Hypertensive heart disease with heart failure
CPT/HCPCS: 36415; 80048

== ENCOUNTER → 2023-02-24 08:12 | Day surgery (SDC) | payer MEDICARE, SELFPAY ==
[2023-02-24 08:24] VITALS: BMI 29.9
[2023-02-24 08:26] VITALS: BP 130/74; PULSE 75; RESP 18; TEMP 36.9; O2SAT 95
[2023-02-24 08:45] VITALS: PULSE 76
[2023-02-24 08:55] LABS: Basophils % 0.1 % (0.1-2.0); Eosinophils # 0.1 K/mm3 (0.0-0.4); Eosinophils % 0.9 % (0.1-12.0); Hematocrit 45.9 % (42.0-52.0); Hemoglobin 14.9 g/dL (14.1-18.0); Lymphocytes # 0.6 K/mm3 (0.7-4.5); Lymphocytes % 4.1 % (10-50); Mean Corpuscular HGB Conc 32.6 g/dL (31.8-35.4); Mean Platelet Volume 8.9 fl (7.4-10.4); Monocytes # 0.6 K/mm3 (0.1-1.0); Monocytes % 3.9 % (1.7-9.3); Neutrophils # 14.1 K/mm3 (1.8-7.8); Neutrophils % 91.1 % (37.0-80.0); Platelet Count 119 K/mm3 (142-424); Red Blood Count 5.15 M/mm3 (4.60-6.20); Red Cell Distribution Width 18.9 % (11.5-17.5); White Blood Count 15.5 K/mm3 (4.8-10.8)
[2023-02-24 09:01] LABS: Anion Gap 15.2 mEq/L (5-15); Blood Urea Nitrogen 34 mg/dl (9-20); Calcium 8.8 mg/dl (8.4-10.2); Carbon Dioxide 31 mmol/L (22.0-30.0); Chloride 101 mmol/L (98-107); Creatinine Clearance Estimated 54 mL/min (50-200); Estimated Glomerular Filt Rate 49 ml/min (>60); GFR (African American) 60 ML/MIN (>60); Glucose 111 mg/dl (74-100); Potassium 4.2 mmoL/L (3.5-5.1); Sodium 143 mmol/L (136-145)
[2023-02-24 09:04] LABS: MANUAL DIFFERENTIAL MANUAL DIFFERENTIAL (MANUAL DIFF)
[2023-02-24 09:18] LABS: Lymphocytes % 4 % (10-50); Monocytes % 4 % (2-9); Neutrophils % 92 % (42-76); Platelet Estimate Slight Decrease; RBC Morphology Normal; Total Cells Counted 100
== END ==
PROVIDERS: PCP Family Medicine; Visit Provider Internal Medicine
DX: I50.22 Chronic systolic (congestive) heart failure (principal); Z53.09 Procedure and treatment not carried out because of other contraindication; I11.0 Hypertensive heart disease with heart failure; I48.0 Paroxysmal atrial fibrillation; I27.20 Pulmonary hypertension, unspecified; Z79.899 Other long term (current) drug therapy; Z79.01 Long term (current) use of anticoagulants; I25.5 Ischemic cardiomyopathy
CPT/HCPCS: 80048; 85007; 85025

== ENCOUNTER 2023-07-04 11:51 | Outpatient (CLI) | payer MEDICARE, SELFPAY ==
[2023-07-04 12:09] LABS: Basophils % 0.2 % (0.1-2.0); Eosinophils # 0.2 K/mm3 (0.0-0.4); Eosinophils % 3.8 % (0.1-12.0); Hematocrit 45.2 % (42.0-52.0); Hemoglobin 14.4 g/dL (14.1-18.0); Lymphocytes # 0.8 K/mm3 (0.7-4.5); Mean Corpuscular HGB Conc 31.9 g/dL (31.8-35.4); Mean Corpuscular Hemoglobin 29.6 pg (27.0-31.2); Mean Corpuscular Volume 92.7 fl (80-94); Monocytes # 0.4 K/mm3 (0.1-1.0); Monocytes % 6.1 % (1.7-9.3); Neutrophils # 4.5 K/mm3 (1.8-7.8); Neutrophils % 75.9 % (37.0-80.0); Platelet Count 112 K/mm3 (142-424); Red Blood Count 4.88 M/mm3 (4.60-6.20); Red Cell Distribution Width 16.8 % (11.5-17.5); White Blood Count 5.9 K/mm3 (4.8-10.8)
[2023-07-04 12:38] LABS: Blood Urea Nitrogen 35 mg/dl (9-20); Calcium 8.8 mg/dl (8.4-10.2); Carbon Dioxide 32 mmol/L (22.0-30.0); Chloride 101 mmol/L (98-107); Estimated Glomerular Filt Rate 49 ml/min (>60); GFR (African American) 60 ML/MIN (>60); Glucose 87 mg/dl (74-100); Magnesium 2.2 mg/dl (1.6-2.3); Sodium 135 mmol/L (136-145)
== END 2023-07-04 23:59 ==
PROVIDERS: PCP Family Medicine; Visit Provider Internal Medicine
DX: E78.5 Hyperlipidemia, unspecified (principal); G47.33 Obstructive sleep apnea (adult) (pediatric); I25.10 Atherosclerotic heart disease of native coronary artery without angina pectoris; I34.0 Nonrheumatic mitral (valve) insufficiency; I42.8 Other cardiomyopathies; I50.20 Unspecified systolic (congestive) heart failure; I50.22 Chronic systolic (congestive) heart failure; Z95.810 Presence of automatic (implantable) cardiac defibrillator; Z99.89 Dependence on other enabling machines and devices; I11.0 Hypertensive heart disease with heart failure
CPT/HCPCS: 36415; 80048; 83735; 85025

== ENCOUNTER 2023-08-19 10:31 | Outpatient (POV) | payer MEDICARE, SELFPAY | END 2023-08-19 23:59 | disposition home or self-care (01) | LOC: SC 10:32 | PROVIDERS: Visit Provider Nurse Practitioner | DX: Z00.00 Encounter for general adult medical examination without abnormal findings (principal) ==

== ENCOUNTER 2023-10-11 17:50 | Observation (INO) | payer MEDICARE, SELFPAY ==
[2023-10-11] VITALS (7 sets, daily range): BP systolic 107–126; BP diastolic 58–72; PULSE 63–74; RESP 10–18; TEMP 36.5–36.6; O2SAT 91–97; BMI 30.2; BMI 31.6
--- NOTE | 2023-10-11 18:06 | ED_ITS ---
Discharge Plan Disposition Patient Disposition: Admitted Discharge ED Provider: Paul Alejo General Adult HPI General Chief complaint: Shortness of Breath/Dyspnea Stated complaint: soa jerking nausea vomiting Time Seen by Provider: 10/11/23 18:06 History of Present Illness HPI narrative: Patient presents with family member at bedside, reports decreased p.o. intake, generalized weakness, frequent drowsiness, has had similar symptoms before attributable to acute kidney injury, no changes in medications or new medication. Denies any pain at this time. Patient experienced nonsyncopal fall over 2 weeks ago during which he sustained a back injury. He did not reportedly strike his head at that time. He does take blood thinners. He denies any chest pain or palpitations, denies any fevers or chills, denies any abdominal pain, denies any shortness of breath. No changes in medications or new medications. No sick contacts or recent travel. Please note that above description of symptoms, in this electronic medical record under categorization of recalled from ER triage doctor by RN are reflective of an initial nursing assessment, however, is not reflective of my full history and physical exam that was personally taken and clarified. Consequentially, this preceding description of symptoms, which may include the patient's categorized chief complaint in the EMR, do not reflect my personal clinical impression, and the ultimate description of history of present illness and patient stated complaints should be deferred to this section of the note. Unless stated otherwise or congruent with this section of the note, additional signs, symptoms, or incongruence should be interpreted as inaccurate with my clinical impression. Related Data Home Medications Medication Instructions Recorded Confirmed omeprazole 20 mg capsule,delayed 20 mg PO DAILY Acid Reflux 10/16/18 10/11/23 release ropinirole 3 mg tablet 3 mg PO HS Restless leg 10/16/18 10/11/23 promethazine 25 mg tablet 25 mg PO TIDP PRN Nausea 04/17/19 10/11/23 oxycodone 10 mg tablet 10 mg PO Q8HP PRN Moderate Pain 08/14/19 10/11/23 tizanidine 4 mg tablet 8 mg PO HS MUSCLE SPASM 08/14/19 10/11/23 pramipexole 0.5 mg tablet 0.5 mg PO TID PARKINSONS 03/20/20 10/11/23 trazodone 100 mg tablet 100 mg PO HS sleep 02/05/21 10/11/23 ranolazine 1,000 mg 1,000 mg PO BID ANGINA 03/24/21 10/11/23 tablet,extended release,12 hr tadalafil 5 mg tablet 5 mg PO DAILY PROSTATE 12/15/21 10/11/23 testosterone cypionate 200 mg/mL 0.75 mg IM DIRECTED HORMONE 12/15/21 10/11/23 intramuscular oil REPLACEMENT sildenafil (pulm.hypertension) 20 20 mg PO DAILY PRN PULM HTN 10/05/22 10/11/23 mg tablet sacubitril 97 mg-valsartan 103 mg 1 tab PO BID Heart Failure 12/31/22 10/11/23 tablet (Entresto) allopurinol 300 mg tablet 400 mg PO DAILY 01/12/23 10/11/23 baclofen 10 mg tablet 10 mg PO BID PRN Pain, Mild 07/04/23 10/11/23 pregabalin 75 mg capsule 75 mg PO DAILY 07/04/23 10/11/23 meclizine 25 mg tablet 25 mg PO QID PRN Dizziness Or 10/11/23 10/11/23 Vertigo Previous Rx's Medication Instructions Recorded ondansetron 4 mg disintegrating 4 mg PO Q8H PRN nausea and 06/15/22 tablet vomiting 4 days #12 tabs torsemide 100 mg tablet 100 mg PO DAILY #90 tabs 03/21/23 nitroglycerin 0.4 mg sublingual See Rx Instructions .Route 04/13/23 tablet .COMPLEX #25 tabs carvedilol 25 mg tablet See Rx Instructions .Route 09/27/23 .COMPLEX #180 tabs rivaroxaban 20 mg tablet (Xarelto) 20 mg PO DAILY THINNER #90 tabs 10/03/23 Allergies Allergy/AdvReac Type Severity Reaction Status Date / Time procaine Allergy Unknown Verified 09/05/23 11:33 empagliflozin AdvReac Mild itching Verified 09/05/23 11:33 [From Jardiance] rosuvastatin AdvReac muscle pain Verified 09/05/23 11:33 [facility] Disclaimer: The information contained in this section may have been updated after the patient was seen, as this information can be updated by other users. Medical History HFrEF (heart failure with reduced ejection fraction) Paroxysmal atrial fibrillation Right lower lobe pneumonia Shortness of Breath GERD (gastroesophageal reflux disease) RLS (restless legs syndrome) GERMAN (obstructive sleep apnea) Fibromyalgia Arthritis Afib HTN (hypertension) CAD (coronary artery disease) Pulmonary HTN Displacement of cardiac pulse generator (battery), initial encounter Elevated left ventricular end-diastolic pressure (LVEDP) Crescendo angina Cardiomyopathy Near syncope Dizziness MR (mitral regurgitation) Blockage of coronary artery of heart Pericarditis Failure of generator of implanted defibrillator 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 Chronic systolic heart failure Hyperlipemia Surgical History History of carpal tunnel release History of cardiac cath History of cholecystectomy AICD (automatic cardioverter/defibrillator) present Family History Other Heart attack Hyperlipidemia Hypertension Social History (Updated 10/11/23 @ 21:46 by Caitlin Wong RN) Smoking Status: Never smoker second hand exposure: No alcohol intake: never substance use type: denies use current occupational status: retired Travel in the last 8 weeks: None household members: spouse housing: house current occupational exposures/hazards: No caffeine: No ROS Obtained: Yes Systems reviewed as appropriate & no additional complaints except as documented As per HPI Physical Exam General General appearance: alert and in no apparent distress Comment: Drowsy but arousable, alert and oriented Head Head exam: atraumatic and normocephalic Eye Eye exam: Present normal appearance Neck Neck exam: Present normal inspection Chest Chest inspection: Present normal inspection and symmetric chest wall rise Respiratory Respiratory exam: Present normal lung sounds bilaterally; Absent respiratory distress Cardiovascular Cardiovascular exam: Present regular rate and normal rhythm Abdominal Exam Abdominal exam: Present soft Neurological Exam Neurological exam: Present alert and oriented X3 Psychiatric Psychiatric exam: Present normal affect and normal mood Skin Skin exam: Present warm, dry and other (Dry mucous membranes) Medical Decision Making Medical Records Medical records reviewed: Yes I reviewed the patient's medical records. Babatunde Inquiry Pt receiving controlled substance: No Vital Signs: 10/11/23 17:51 10/11/23 18:30 10/11/23 19:00 Temperature 97.7 F Temperature Source Oral Pulse Rate 63 63 Pulse Rate [Radial] 70 Respiratory Rate 18 12 11 L Blood Pressure 120/72 126/67 Blood Pressure [Right Arm] 112/58 L Blood Pressure Mean Blood Pressure Mean [Right Arm] 76 Blood Pressure Source [Right Arm] Automatic Cuff Blood Pressure Position [Right Arm] Sitting 02 Sat by Pulse Oximetry 97 95 93 L Oxygen Delivery Method Room Air Room Air Room Air 10/11/23 19:30 10/11/23 20:54 Temperature 97.7 F Temperature Source Pulse Rate 64 65 Pulse Rate [Radial] Respiratory Rate 10 L 14 Blood Pressure 123/72 107/58 L Blood Pressure [Right Arm] Blood Pressure Mean 83 Blood Pressure Mean [Right Arm] Blood Pressure Source [Right Arm] Blood Pressure Position [Right Arm] 02 Sat by Pulse Oximetry 91 L Oxygen Delivery Method Room Air Lab Data Lab Results 10/11/23 18:21: WBC 8.2, RBC 4.97, Hgb 13.8 L, Hct 43.4, MCV 87.4, MCH 27.8, MCHC 31.8, RDW 18.4 H, Plt Count 140 L, MPV 8.9, Neut % (Auto) 83.3 H, Lymph % (Auto) 8.9 L, Stevens % (Auto) 5.1, Eos % (Auto) 2.4, Baso % (Auto) 0.3, Neut # (Auto) 6.9, Lymph # (Auto) 0.7, Stevens # (Auto) 0.4, Eos # (Auto) 0.2, Baso # (Auto) 0.0, PT 14.6 H, INR 1.38 H, Sodium 137, Potassium 5.2 H, Chloride 102, Carbon Dioxide 29, Anion Gap 11.2, BUN 50 H, Creatinine 3.10 H, Estimated Creat Clear 23, Estimated GFR 20 L, Est GFR ( Amer) 24 L, Glucose 106 H, Calcium 8.9, Magnesium 1.9, Total Bilirubin 0.7, AST 24, ALT 16, Alkaline Phosphatase 65, Troponin I < 0.01, NT-Pro-B Natriuret Pep 671 H, Total Protein 6.4, Albumin 3.9, Globulin 2.5, Albumin/Globulin Ratio 1.6 10/11/23 18:23: VBG pH 7.35, VBG pCO2 49.0, VBG pO2 57.9 H, VBG HCO3 26.2, VBG Total CO2 27.7 H, VBG O2 Saturation 88.6 H, VBG Base Excess 0.5, VBG Lactic Acid 1.2 10/11/23 18:21 10/11/23 18:21 Orders (Tests/Meds): ED MEDICATIONS Generic Name Dose Route Start Last Admin Trade Name Campos PRN Reason Stop Dose Admin Acetaminophen 650 mg 10/11/23 21:11 Acetaminophen 325mg Tab PO 11/10/23 21:10 Q4HP PRN Fever or Mild Pain (1-3) Enoxaparin Sodium 40 mg 10/12/23 09:00 Enoxaparin 40mg/0.4ml Syringe SQ 11/11/23 08:59 DAILY DOLLY Sodium Chloride 1,000 mls @ 50 mls/hr 10/11/23 21:15 10/11/23 22:35 Sod Chlor 0.9% 1000ml Bag IV 11/10/23 21:14 50 mls/hr .Q20H DOLLY Administration Morphine Sulfate 2 mg 10/11/23 21:11 Morphine 2mg/Ml Syringe IV 11/10/23 21:10 Q2HP PRN Severe Pain (7-10) Ondansetron HCl 4 mg 10/11/23 21:11 Ondansetron 4mg/2ml Vial IV 11/10/23 21:10 Q8HP PRN Nausea Pantoprazole Sodium 40 mg 10/12/23 09:00 Pantoprazole 40mg Tablet PO 11/11/23 08:59 DAILY DOLLY Sodium Chloride 10 ml 10/11/23 21:11 Sodium Chloride 0.9% 10ml Flush Syringe IV 11/10/23 21:10 NEEDED PRN Maintain IV Site Discontinued Medications Generic Name Dose Route Start Last Admin Trade Name Campos PRN Reason Stop Dose Admin Lactated Ringer's 1,000 mls @ 999 mls/hr 10/11/23 19:11 10/11/23 19:48 Lactated Ringer's 1000 Ml Bag IV 10/11/23 20:11 999 mls/hr .Q1H1M ONE Administration ORDERS Category Date Time Status CT head/brain wo con Stat Cat Scan 10/11/23 18:20 Completed XR chest portable Stat Exams 10/11/23 18:20 Completed BNP [NT Pro Brain Natriuretic Pep.] Stat Lab 10/11/23 18:21 Completed CBC w/Auto Diff [Complete Blood Count Auto Diff] Stat Lab 10/11/23 18:21 Completed CMP [Comprehensive Metabolic Panel] Stat Lab 10/11/23 18:21 Completed MAG [Magnesium] Stat Lab 10/11/23 18:21 Completed PT INR [Prothrombin Time INR] Stat Lab 10/11/23 18:21 Completed Troponin I Q3H Lab 10/11/23 18:21 Completed Troponin I Q3H Lab 10/11/23 21:30 Completed VBG [Venous Blood Gas] Stat RT 10/11/23 18:23 Completed Medical Decision Narrative: Patient with history and exam per above presenting for evaluation of drowsiness, fatigue Diagnoses considered include acute kidney injury, electrolyte abnormality, systemic infection, symptomatic hypercarbia, CHF exacerbation, among others ED workup and treatment included: ED MEDICATIONS Generic Name Dose Route Start Last Admin Trade Name Freq PRN Reason Stop Dose Admin Acetaminophen 650 mg 10/11/23 21:11 Acetaminophen 325mg Tab PO 11/10/23 21:10 Q4HP PRN Fever or Mild Pain (1-3) Enoxaparin Sodium 40 mg 10/12/23 09:00 Enoxaparin 40mg/0.4ml Syringe SQ 11/11/23 08:59 DAILY DOLLY Sodium Chloride 1,000 mls @ 50 mls/hr 10/11/23 21:15 10/11/23 22:35 Sod Chlor 0.9% 1000ml Bag IV 11/10/23 21:14 50 mls/hr .Q20H DOLLY Administration Morphine Sulfate 2 mg 10/11/23 21:11 Morphine 2mg/Ml Syringe IV 11/10/23 21:10 Q2HP PRN Severe Pain (7-10) Ondansetron HCl 4 mg 10/11/23 21:11 Ondansetron 4mg/2ml Vial IV 11/10/23 21:10 Q8HP PRN Nausea Pantoprazole Sodium 40 mg 10/12/23 09:00 Pantoprazole 40mg Tablet PO 11/11/23 08:59 DAILY DOLLY Sodium Chloride 10 ml 10/11/23 21:11 Sodium Chloride 0.9% 10ml Flush Syringe IV 11/10/23 21:10 NEEDED PRN Maintain IV Site Discontinued Medications Generic Name Dose Route Start Last Admin Trade Name Freq PRN Reason Stop Dose Admin Lactated Ringer's 1,000 mls @ 999 mls/hr 10/11/23 19:11 10/11/23 19:48 Lactated Ringer's 1000 Ml Bag IV 10/11/23 20:11 999 mls/hr .Q1H1M ONE Administration ORDERS Category Date Time Status CT head/brain wo con Stat Cat Scan 10/11/23 18:20 Completed XR chest portable Stat Exams 10/11/23 18:20 Completed BNP [NT Pro Brain Natriuretic Pep.] Stat Lab 10/11/23 18:21 Completed CBC w/Auto Diff [Complete Blood Count Auto Diff] Stat Lab 10/11/23 18:21 Completed CMP [Comprehensive Metabolic Panel] Stat Lab 10/11/23 18:21 Completed MAG [Magnesium] Stat Lab 10/11/23 18:21 Completed PT INR [Prothrombin Time INR] Stat Lab 10/11/23 18:21 Completed Troponin I Q3H Lab 10/11/23 18:21 Completed Troponin I Q3H Lab 10/11/23 21:30 Completed VBG [Venous Blood Gas] Stat RT 10/11/23 18:23 Completed Labs were independently interpreted by me, significant for acute kidney injury, no acidosis, potassium 5.2 without EKG changes, hemoconcentration Imaging was independently visualized and interpreted by me, significant for no acute findings. Please refer to radiology report for full details. My clinical impression at this time is most consistent with acute kidney injury Patient will benefit from further management on inpatient basis. Patient was admitted to hospital medicine service. Critical Care Critical Care Time Critical Care Time: No
--- NOTE | 2023-10-11 18:14 | ECG_ITS ---
APPROVED REPORT Exam: Resting ECG HR:66 bpm ECG Measurements Heart Rate 66 AXES AR 221 P 52 QRSd 118 QRS 65 QT 418 T 211 QTc 431 Conclusion SINUS RHYTHM WITH FIRST DEGREE AV BLOCK MODERATE INTRAVENTRICULAR CONDUCTION DELAY [110+ ms QRS DURATION] NONSPECIFIC T-WAVE ABNORMALITY ABNORMAL ECG UNCONFIRMED REPORT Electronically signed by : ANITRA KIM, 10/12/2023 06:51:56
--- NOTE | 2023-10-11 18:14 | PC.NURSE ---
DR NYE AT BEDSIDE
--- NOTE | 2023-10-11 18:20 | XR_ITS ---
PROCEDURE INFORMATION: Exam: XR Chest Exam date and time: 10/11/2023 7:38 PM Age: 78 years old Clinical indication: Shortness of breath; Additional info: SOA, HX chf TECHNIQUE: Imaging protocol: Radiologic exam of the chest. Views: 1 view. COMPARISON: CR XR CHEST PORTABLE 12/30/2022 5:08 PM FINDINGS: Tubes, catheters and devices: A 4 lead internal cardiac device implanted at the left chest with leads extending to the right heart. Lungs: Pleuroparenchymal scarring of the lung bases with subsegmental atelectasis is present without consolidations or pleural effusions that project above the diaphragm. Pleural spaces: Unremarkable. No pleural effusion. No pneumothorax. Heart/Mediastinum: Unremarkable. No cardiomegaly. Bones/joints: Unremarkable. IMPRESSION: Pleuroparenchymal scarring of the lung bases with subsegmental atelectasis is present without consolidations or pleural effusions that project above the diaphragm.
--- NOTE | 2023-10-11 18:20 | CT_ITS ---
PROCEDURE INFORMATION: Exam: CT Head Without Contrast Exam date and time: 10/11/2023 7:38 PM Age: 78 years old Clinical indication: Injury or trauma; Fall; Blunt trauma (contusions or hematomas); Additional info: Fall 2 weeks ago, AMS TECHNIQUE: Imaging protocol: Computed tomography of the head without contrast. Radiation optimization: All CT scans at this facility use at least one of these dose optimization techniques: automated exposure control; mA and/or kV adjustment per patient size (includes targeted exams where dose is matched to clinical indication); or iterative reconstruction. COMPARISON: No relevant prior studies available. FINDINGS: Brain: There is moderate diffuse cerebral volume loss present. Multiple subcortical and deep hypoattenuating white matter foci are present, likely related to small vessel senescent changes and can also be seen with prior infectious / inflammatory insult, or prior traumatic events. No hyperattenuating foci are identified to suggest acute intracranial hemorrhage. Cerebral ventricles: No ventriculomegaly. Paranasal sinuses: Visualized sinuses are unremarkable. No fluid levels. Mastoid air cells: Visualized mastoid air cells are well aerated. Bones/joints: Unremarkable. No acute fracture. Soft tissues: Unremarkable. IMPRESSION: 1. Multiple subcortical and deep hypoattenuating white matter foci are present, likely related to small vessel senescent changes and can also be seen with prior infectious / inflammatory insult, or prior traumatic events. 2. No hyperattenuating foci are identified to suggest acute intracranial hemorrhage.
[2023-10-11 18:34] LABS: Basophils % 0.3 % (0.1-2.0); Eosinophils # 0.2 K/mm3 (0.0-0.4); Eosinophils % 2.4 % (0.1-12.0); Hematocrit 43.4 % (42.0-52.0); Hemoglobin 13.8 g/dL (14.1-18.0); Lymphocytes # 0.7 K/mm3 (0.7-4.5); Lymphocytes % 8.9 % (10-50); Mean Corpuscular HGB Conc 31.8 g/dL (31.8-35.4); Mean Corpuscular Hemoglobin 27.8 pg (27.0-31.2); Mean Corpuscular Volume 87.4 fl (80-94); Mean Platelet Volume 8.9 fl (7.4-10.4); Monocytes # 0.4 K/mm3 (0.1-1.0); Monocytes % 5.1 % (1.7-9.3); Neutrophils # 6.9 K/mm3 (1.8-7.8); Neutrophils % 83.3 % (37.0-80.0); Platelet Count 140 K/mm3 (142-424); Red Blood Count 4.97 M/mm3 (4.60-6.20); Red Cell Distribution Width 18.4 % (11.5-17.5); White Blood Count 8.2 K/mm3 (4.8-10.8)
[2023-10-11 18:39] LABS: INR 1.38 (0.9-1.1); Prothrombin Time 14.6 seconds (10.1-12.5)
[2023-10-11 18:41] LABS: Lactate Venous 1.2 mmol/L (0.4-2.0); VBG Base Excess 0.5 mmol/L (-2.4-2.3); VBG HCO3 26.2 mmol/L (23-30); VBG Oxygen Saturation 88.6 % (50-70); VBG PH 7.35 mmol/L (7.31-7.41); VBG PO2 57.9 mmol/L (28-40); VBG Total CO2 27.7 mmol/L (23-27)
[2023-10-11 18:44] LABS: Chloride 102 mmol/L (98-107); Sodium 137 mmol/L (136-145)
[2023-10-11 18:45] LABS: Potassium 5.2 mmoL/L (3.5-5.1)
[2023-10-11 18:47] LABS: Alanine Aminotransferase 16 U/L (12-78); Albumin Level 3.9 g/dl (3.5-5.0); Albumin/Globulin Ratio 1.6 (1.1-1.8); Alkaline Phosphatase 65 U/L (38-126); Anion Gap 11.2 mEq/L (5-15); Aspartate Amino Transferase 24 U/L (17-59); Bilirubin,Total 0.7 mg/dl (0.2-1.3); Blood Urea Nitrogen 50 mg/dl (9-20); Carbon Dioxide 29 mmol/L (22.0-30.0); Creatinine Clearance Estimated 23 mL/min (50-200); Estimated Glomerular Filt Rate 20 ml/min (>60); GFR (African American) 24 ML/MIN (>60); Globulin 2.5 g/dL (1.3-3.2); Total Protein,Serum 6.4 g/dl (6.3-8.2)
[2023-10-11 18:48] LABS: Calcium 8.9 mg/dl (8.4-10.2); Glucose 106 mg/dl (74-100)
[2023-10-11 18:56] LABS: NT Pro Brain Natriuretic Pep. 671 pg/mL (0-450)
[2023-10-11 18:57] LABS: Magnesium 1.9 mg/dl (1.6-2.3)
[2023-10-11 19:13] LABS: Troponin I < 0.01 ng/ml (0.00-0.034)
[2023-10-11] MEDS: LACTATED RINGERS 1000ML 1,000 ML 999 ML IV (19:48)
--- NOTE | 2023-10-11 19:50 | PC.NURSE ---
I rounded on the pt. He requested something to drink. I checked with who approved his request. I took some ice water to the pt. no new complaints at this time. call delia in reach.
--- NOTE | 2023-10-11 20:35 | PC.NURSE ---
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
--- NOTE | 2023-10-11 20:45 | PC.NURSE ---
Report called to Caitlin CONNELL
--- NOTE | 2023-10-11 21:01 | PC.NURSE ---
Patient arrived to floor via wheelchair from ED at 21:00.
--- NOTE | 2023-10-11 21:16 | P.HP_ITS ---
History of Present Illness *Admission Date: 10/11/23 *Reason for visit:: multilpes falls and weakness *History of present illness: This is a 78 year old male PMHX with extensive cardiac history included but not limited to HFrEF, cardiomyopathy, AICD in place, MR, CAD, Pulmonary htn, restless leg syndrome, GERD, presented to ER for evaluation of increased weakness and multiples syncopal or near syncopal falls. patient has been experienced frequent drowsiness, and weakness, with eventually worsened today before being brought to hospital. History also obtained from at bedside, who confirmed. He denies any chest pain or palpitations, denies any fevers or chills, denies any abdominal pain, denies any shortness of breath. No changes in medications or new medications. No sick contacts or recent travel. admitted for treatment and management [facility] Disclaimer: The information contained in this section may have been updated after the patient was seen, as this information can be updated by other users. Medical History Near syncope HFrEF (heart failure with reduced ejection fraction) Paroxysmal atrial fibrillation Right lower lobe pneumonia Shortness of Breath GERD (gastroesophageal reflux disease) RLS (restless legs syndrome) GERMAN (obstructive sleep apnea) Fibromyalgia Arthritis Afib HTN (hypertension) CAD (coronary artery disease) Pulmonary HTN Displacement of cardiac pulse generator (battery), initial encounter Elevated left ventricular end-diastolic pressure (LVEDP) Crescendo angina Cardiomyopathy Dizziness MR (mitral regurgitation) Blockage of coronary artery of heart Pericarditis Failure of generator of implanted defibrillator Systolic heart failure FCI (current) use of anticoagulants Chronic systolic heart failure Hyperlipemia Surgical History History of carpal tunnel release History of cardiac cath History of cholecystectomy AICD (automatic cardioverter/defibrillator) present Family History Other Heart attack Hyperlipidemia Hypertension Social History Smoking Status: Never smoker second hand exposure: No alcohol intake: never substance use type: denies use current occupational status: retired Travel in the last 8 weeks: None household members: spouse housing: house current occupational exposures/hazards: No caffeine: No Review of Systems Review of Systems Review of systems:: pertinent systems reviewed and negative unless documented below Meds Home Medications and Allergies Home Medications Medication Instructions Recorded Confirmed Type omeprazole 20 mg capsule,delayed 20 mg PO DAILY 10/16/18 10/11/23 History release ropinirole 3 mg tablet 3 mg PO HS 10/16/18 10/11/23 History promethazine 25 mg tablet 25 mg PO TIDP PRN Nausea 04/17/19 10/11/23 History oxycodone 10 mg tablet 10 mg PO Q12HP PRN Moderate Pain 08/14/19 10/12/23 History tizanidine 4 mg tablet 8 mg PO HS 08/14/19 10/11/23 History pramipexole 0.5 mg tablet 0.5 mg PO TID 03/20/20 10/11/23 History trazodone 100 mg tablet 100 mg PO HS 02/05/21 10/11/23 History ranolazine 1,000 mg 1,000 mg PO BID 03/24/21 10/11/23 History tablet,extended release,12 hr tadalafil 5 mg tablet 5 mg PO DAILY 12/15/21 10/11/23 History testosterone cypionate 200 mg/mL 0.75 mg IM DIRECTED HORMONE 12/15/21 10/11/23 History intramuscular oil REPLACEMENT ondansetron 4 mg disintegrating 4 mg PO Q8H PRN nausea and 06/15/22 10/12/23 Rx tablet vomiting 4 days #12 tabs sildenafil (pulm.hypertension) 20 20 mg PO DAILY PRN pulmonary 10/05/22 10/11/23 History mg tablet hypertension sacubitril 97 mg-valsartan 103 mg 1 tab PO BID 12/31/22 10/11/23 History tablet (Entresto) allopurinol 300 mg tablet 400 mg PO DAILY 01/12/23 10/11/23 History torsemide 100 mg tablet 100 mg PO DAILY #90 tabs 03/21/23 10/11/23 Rx baclofen 10 mg tablet 10 mg PO BID PRN Pain, Mild 07/04/23 10/11/23 History pregabalin 75 mg capsule 75 mg PO DAILY 07/04/23 10/11/23 History meclizine 25 mg tablet 25 mg PO QID PRN Dizziness Or 10/11/23 10/12/23 History Vertigo carvedilol 25 mg tablet 25 mg PO BIDWMEAL 10/12/23 10/12/23 History ferrous sulfate 325 mg (65 mg 325 mg PO DAILY 10/12/23 10/12/23 History iron) tablet (FeroSul) nitroglycerin 0.4 mg sublingual 0.4 mg sublingual NEEDED PRN 10/12/23 10/12/23 History tablet Chest Pain rivaroxaban 20 mg tablet (Xarelto) 20 mg PO DAILY 10/12/23 10/12/23 History New Prescriptions to Start Prescriptions: Allergies Allergy/AdvReac Type Severity Reaction Status Date / Time procaine Allergy Unknown Verified 09/05/23 11:33 empagliflozin AdvReac Mild itching Verified 09/05/23 11:33 [From Jardiance] rosuvastatin AdvReac muscle pain Verified 09/05/23 11:33 Exam Data for Last 24 hours Vital signs and Labs for Last 24 Hours: Temp Pulse Resp BP Pulse Ox O2 Del Method 97.7 F 65 14 107/58 L 91 L Room Air 10/11/23 20:54 10/11/23 20:54 10/11/23 20:54 10/11/23 20:54 10/11/23 19:30 10/11/23 19:30 Laboratory Results - last 24 hr 10/11/23 18:21: WBC 8.2, RBC 4.97, Hgb 13.8 L, Hct 43.4, MCV 87.4, MCH 27.8, MCHC 31.8, RDW 18.4 H, Plt Count 140 L, MPV 8.9, Neut % (Auto) 83.3 H, Lymph % (Auto) 8.9 L, [place] % (Auto) 5.1, Eos % (Auto) 2.4, Baso % (Auto) 0.3, Neut # (Auto) 6.9, Lymph # (Auto) 0.7, [place] # (Auto) 0.4, Eos # (Auto) 0.2, Baso # (Auto) 0.0, PT 14.6 H, INR 1.38 H, Sodium 137, Potassium 5.2 H, Chloride 102, Carbon Dioxide 29, Anion Gap 11.2, BUN 50 H, Creatinine 3.10 H, Estimated Creat Clear 23, Estimated GFR 20 L, Est GFR ( Amer) 24 L, Glucose 106 H, Calcium 8.9, Magnesium 1.9, Total Bilirubin 0.7, AST 24, ALT 16, Alkaline Phosphatase 65, Troponin I < 0.01, NT-Pro-B Natriuret Pep 671 H, Total Protein 6.4, Albumin 3.9, Globulin 2.5, Albumin/Globulin Ratio 1.6 10/11/23 18:23: VBG pH 7.35, VBG pCO2 49.0, VBG pO2 57.9 H, VBG HCO3 26.2, VBG Total CO2 27.7 H, VBG O2 Saturation 88.6 H, VBG Base Excess 0.5, VBG Lactic Acid 1.2 Temp Pulse Resp BP Pulse Ox O2 Del Method 99.8 F H 72 16 99/70 L 95 Room Air 12/30/22 18:53 12/30/22 18:53 12/30/22 18:53 12/30/22 18:53 12/30/22 18:52 12/30/22 18:53 Laboratory Results - last 24 hr 12/30/22 13:20: Lactate 1.0 12/30/22 14:45: WBC 15.4 H, RBC 5.89, Hgb 15.4, Hct 48.3, MCV 82.0, MCH 26.1 L, MCHC 31.9, RDW 18.2 H, Plt Count 104 L, MPV 9.4, Neut % (Auto) 93.0 H, Lymph % (Auto) 3.1 L, [place] % (Auto) 3.3, Eos % (Auto) 0.5, Baso % (Auto) 0.1, Neut # (Auto) 14.4 H, Lymph # (Auto) 0.5 L, [place] # (Auto) 0.5, Eos # (Auto) 0.1, Baso # (Auto) 0.0, Total Counted 100, Neutrophils % (Manual) 92 H, Lymphocytes % (Manual) 4 L, Monocytes % (Manual) 4, Platelet Estimate Slight decrease, RBC Morphology Normal, Sodium 137, Potassium 4.8, Chloride 104, Carbon Dioxide 26, Anion Gap 11.8, BUN 40 H, Creatinine 1.60 H, Estimated Creat Clear 45, Estimated GFR 42 L, Est GFR ( Amer) 51 L, Glucose 114 H, Hemoglobin A1c 5.1, Calcium 8.4, Total Bilirubin 0.8, AST 28, ALT 22, Alkaline Phosphatase 55, Troponin I < 0.01, Total Protein 6.7, Albumin 4.0, Globulin 2.7, Albumin/Globulin Ratio 1.5, Procalcitonin 0.151, SARS-CoV-2 (PCR) Not detected, Influenza A Untype (PCR) Not detected, Influenza Type B (PCR) Not detected I & O for Last 24 hours: Intake & Output 10/08/23 10/09/23 10/10/23 10/11/23 23:59 23:59 23:59 23:59 Weight 82.554 kg Intake & Output 12/27/22 12/28/22 12/29/22 12/30/22 23:59 23:59 23:59 23:59 Weight 84.538 kg Constitutional Constitutional: chronically ill appearing *Routine HEENT Exam Head: Present normocephalic and atraumatic Eye: Present EOMI and PERRL ENT: Present mucous membranes moist *Routine Neck Exam Neck: Present full ROM *Routine Respiratory Exam Respiratory: Present crackles and normal respiratory effort; Absent accessory muscle use, CTA bilaterally or respiratory distress *Routine Cardiovascular Exam Cardiovascular: Present RRR, Normal S1 and Normal S2 *Routine Abdominal Exam Abdominal: Present soft and normoactive bowel sounds; Absent tenderness *Routine Rectal Exam Rectal:: deferred *Routine Genitalia Exam Genitalia:: deferred *Routine Extremities Exam Extremities: Present full ROM *Routine Skin Exam Skin: Present intact and dry *Routine Neurological Exam Neurological: Present alert and oriented X3 H&P: Result Imaging and Cardiology EKG: Status: image reviewed by me, Preliminary report and final report CT scan - head: Status: image reviewed by me, Preliminary report and final report Assessment and Plan *Assessment and plan (1) Near syncope: Status: Acute Category: Medical Code(s): R55 - Syncope and collapse (2) LEXII (acute kidney injury): Status: Acute Category: Medical Code(s): N17.9 - Acute kidney failure, unspecified (3) HFrEF (heart failure with reduced ejection fraction): Status: Acute Category: Medical Code(s): I50.20 - Unspecified systolic (congestive) heart failure (4) Cardiomyopathy: Status: Chronic Qualifiers: Cardiomyopathy type: ischemic Qualified Code(s): I25.5 - Ischemic cardiomyopathy Category: Medical Code(s): I42.9 - Cardiomyopathy, unspecified (5) AICD (automatic cardioverter/defibrillator) present: Status: Chronic Category: Surgical Code(s): Z95.810 - Presence of automatic (implantable) cardiac defibrillator (6) Pulmonary HTN: Status: Acute Category: Medical Code(s): I27.20 - Pulmonary hypertension, unspecified (7) RLS (restless legs syndrome): Status: Acute Category: Medical Code(s): G25.81 - Restless legs syndrome (8) GERD (gastroesophageal reflux disease): Status: Acute Qualifiers: Esophagitis presence: without esophagitis Qualified Code(s): K21.9 - Gastro-esophageal reflux disease without esophagitis Category: Medical Code(s): K21.9 - Gastro-esophageal reflux disease without esophagitis Plan 78 year old male PMHX with extensive cardiac history included but not limited to HFrEF, cardiomyopathy, AICD in place, MR, CAD, Pulmonary htn, restless leg syndrome, GERD, presented to ER for evaluation of increased weakness and multiples syncopal or near syncopal falls. Discussed with ED. agreed for admission. Plan as follow: Syncope or near syncope multiples falls HFrEF Cardiomyopathy AICD Pulmonary HTN -Cardiac work up in the ED revealed abnormal EKG 1st degree Heart block and negative troponin. -No reports of chest pain upon my assessment. mostly hypotensive, discretional bolus 500ml given -Cardiac hx with known EF of 25 % -Cardiac diet/ cardiac telemetry -Cardiology consult placed. Thank you for the recommendations. -Home meds: Cavediol 25 mg BID, Plavix 75 mg daily, Ranolazine 1000mg daily, Xarelto 20 mg daily, Sacubitril-valsartan 1 tab BID, Sildenafil 20 mg PRN, and Tadalafil 5 mg daily We're deferred to cardiology to review and redose medications ECHO ordered US carotic ordered CT of head reviewed. orthostatic BP ordered LEXII: likely prerenal secondary to poor intake and/or dehydration. monitor renal function avoid nephrotoxic medication continue gently hydration. monitor for fluid overload. stop fluid when creatinine improves GERD -Protonix 40 mg daily Restless leg syndrome -continue home Tizanidine 4mg and Ropinirole 3 mg nightly FULL CODE CARDIAC DIET DVT: Xarelto 20 mg daily Attending attestation Patient was seen and evaluated at the bedside myself, agree with AYLEEN note.
[2023-10-11 21:58] LABS: Troponin I < 0.01 ng/ml (0.00-0.034)
[2023-10-11] MEDS: 0.9 % SODIUM CHLORIDE 1000ML 1,000 ML 50 ML IV (22:35)
--- NOTE | 2023-10-11 23:49 | PC.NURSE ---
BP LOW. 84/40 LEFT ARM MANUAL CUFF. PATIENT IS ASYMPTOMATIC. WAS SLEPING WELL BEFORE AWAKENED FOR VITALS. AMY PRATT APRN NOTIFIED. ORDER RECEIVED TO GIVE BOLUS OF NS 500 ML NOW.
[2023-10-12] VITALS (8 sets, daily range): BP systolic 84–120; BP diastolic 40–64; PULSE 66–83; RESP 17–20; TEMP 36.4–37; O2SAT 93–98; BMI 31.5
--- NOTE | 2023-10-12 01:06 | PC.NURSE ---
500 ML BOLUS COMPLETED. BP 85/45 HR 66
--- NOTE | 2023-10-12 04:42 | PC.NURSE ---
A/O X 4. NO NAUSEA/VOMITING/ PAIN THIS SHIFT. NO C/O SOA. 02 AT 2LNC. CARDIOLOGY CONSULT PENDING. CAROTID DUPLEX AND ECHO HAVE BEEN ORDERED. BP SLIGHTLY IMPROVED. IVFs 0.9% NS INFUSING AT 50 ML/HR/PUMP.
[2023-10-12 06:02] LABS: Basophils % 0.5 % (0.1-2.0); Eosinophils # 0.3 K/mm3 (0.0-0.4); Eosinophils % 4.1 % (0.1-12.0); Hemoglobin 12.9 g/dL (14.1-18.0); Lymphocytes # 0.8 K/mm3 (0.7-4.5); Lymphocytes % 12.3 % (10-50); Mean Corpuscular HGB Conc 30.8 g/dL (31.8-35.4); Mean Corpuscular Hemoglobin 27.5 pg (27.0-31.2); Mean Corpuscular Volume 89.3 fl (80-94); Mean Platelet Volume 9.7 fl (7.4-10.4); Monocytes # 0.4 K/mm3 (0.1-1.0); Monocytes % 6.5 % (1.7-9.3); Neutrophils # 4.8 K/mm3 (1.8-7.8); Neutrophils % 76.6 % (37.0-80.0); Platelet Count 115 K/mm3 (142-424); Red Blood Count 4.71 M/mm3 (4.60-6.20); Red Cell Distribution Width 18.6 % (11.5-17.5); White Blood Count 6.2 K/mm3 (4.8-10.8)
[2023-10-12 06:07] LABS: Chloride 107 mmol/L (98-107); Potassium 4.5 mmoL/L (3.5-5.1); Sodium 138 mmol/L (136-145)
[2023-10-12 06:10] LABS: Alanine Aminotransferase 13 U/L (12-78); Albumin Level 3.1 g/dl (3.5-5.0); Albumin/Globulin Ratio 1.3 (1.1-1.8); Alkaline Phosphatase 55 U/L (38-126); Anion Gap 5.5 mEq/L (5-15); Aspartate Amino Transferase 23 U/L (17-59); Bilirubin,Total 0.5 mg/dl (0.2-1.3); Blood Urea Nitrogen 45 mg/dl (9-20); Calcium 8.5 mg/dl (8.4-10.2); Carbon Dioxide 30 mmol/L (22.0-30.0); Creatinine Clearance Estimated 29 mL/min (50-200); Estimated Glomerular Filt Rate 24 ml/min (>60); GFR (African American) 29 ML/MIN (>60); Globulin 2.3 g/dL (1.3-3.2); Glucose 101 mg/dl (74-100); Total Protein,Serum 5.4 g/dl (6.3-8.2)
--- NOTE | 2023-10-12 07:18 | HMH.PHAINT1 ---
Pharmacy Intervention Comments: HOME MEDICATION LIST VERIFIED VIA OUTSIDE PHARMACY
[2023-10-12] MEDS: PANTOPRAZOLE 40MG TABLET 40 MG PO (09:11)
[2023-10-12] MEDS: PRAMIPEXOLE 0.5 MG PO (09:13)
[2023-10-12] MEDS: PREGABALIN 25MG CAPSULE 75 MG PO (09:18)
[2023-10-12] MEDS: 0.9 % SODIUM CHLORIDE 1000ML 1,000 ML 50 ML IV (10:05)
--- NOTE | 2023-10-12 10:26 | P.CONCA_ITS ---
History of Present Illness History of Present Illness Consult date: 10/12/23 Requesting physician: Paresh Parnell Chief complaint: weakness, syncope History of present illness: 78-year-old white male established patient of our office with history of CAD status post drug-eluting stent February 2018. Patient also has atrial fibrillation on Xarelto. He is on oxygen at night. He has HFrEF, EF 44% status post ICD. Last seen in our office September 04, at that visit we stopped Plavix due to nosebleed. He had been having falls due to neurologic complaints. Patient states yesterday at home he had severe vomiting episode followed by pronounced weakness and shortness of breath. He presented to the emergency room and was found to have LEXII. Baseline creatinine 1.4, 3.1 on admission. He was admitted overnight for observation and gentle fluid resuscitation. This morning feeling somewhat improved although still weak, creatinine is 2.6. Home meds include Entresto 97?103 and torsemide 100 which she uses as needed but states he has bee n using almost daily. He also complains of numerous chronic neurologic complaints including involuntary spasm of upper and lower extremities as well as pronounced weakness. He has never seen anyone for this outpatient. [facility] Disclaimer: The information contained in this section may have been updated after the patient was seen, as this information can be updated by other users. Medical History Near syncope HFrEF (heart failure with reduced ejection fraction) Paroxysmal atrial fibrillation Right lower lobe pneumonia Shortness of Breath GERD (gastroesophageal reflux disease) RLS (restless legs syndrome) GERMAN (obstructive sleep apnea) Fibromyalgia Arthritis Afib HTN (hypertension) CAD (coronary artery disease) Pulmonary HTN Displacement of cardiac pulse generator (battery), initial encounter Elevated left ventricular end-diastolic pressure (LVEDP) Crescendo angina Cardiomyopathy Dizziness MR (mitral regurgitation) Blockage of coronary artery of heart Pericarditis Failure of generator of implanted defibrillator Systolic heart failure custodial (current) use of anticoagulants Chronic systolic heart failure Hyperlipemia Surgical History History of carpal tunnel release History of cardiac cath History of cholecystectomy AICD (automatic cardioverter/defibrillator) present Family History Other Heart attack Hyperlipidemia Hypertension Social History Smoking Status: Never smoker second hand exposure: No alcohol intake: never substance use type: denies use current occupational status: retired Travel in the last 8 weeks: None household members: spouse housing: house current occupational exposures/hazards: No caffeine: No Review of Systems Constitutional Constitutional: Reports fatigue and Reports weakness Eyes Eyes: Denies loss of vision ENT Ears, Nose, Mouth, and Throat: Denies hearing loss and Reports vertigo *Cardiovascular Cardiovascular: Denies chest pain, Denies dyspnea and Reports syncope *Respiratory Respiratory: Denies cough and Denies dyspnea *Gastrointestinal Gastrointestinal: Denies change in stool character, Reports nausea and Reports vomiting *Genitourinary Genitourinary: Denies difficulty urinating *Musculoskeletal Musculoskeletal: Reports back pain and Reports muscle weakness Integumentary/Breasts Skin/Breast: Denies changing lesions *Neurologic Neurologic: Denies loss of vision, Reports restless legs, Reports syncope, Reports vertigo and Reports weakness Endocrine Endocrine: Reports fatigue Exam Data for Last 24 hours Vital signs and Labs for Last 24 Hours: Temp Pulse Resp BP Pulse Ox O2 Del Method O2 Flow Rate 98.6 F 80 18 98/51 L 96 Room Air 2 10/12/23 08:00 10/12/23 08:00 10/12/23 08:00 10/12/23 08:00 10/12/23 08:00 10/12/23 09:00 10/12/23 06:37 Laboratory Results - last 24 hr 10/11/23 18:21: WBC 8.2, RBC 4.97, Hgb 13.8 L, Hct 43.4, MCV 87.4, MCH 27.8, MCHC 31.8, RDW 18.4 H, Plt Count 140 L, MPV 8.9, Neut % (Auto) 83.3 H, Lymph % (Auto) 8.9 L, [place] % (Auto) 5.1, Eos % (Auto) 2.4, Baso % (Auto) 0.3, Neut # (Auto) 6.9, Lymph # (Auto) 0.7, [place] # (Auto) 0.4, Eos # (Auto) 0.2, Baso # (Auto) 0.0, PT 14.6 H, INR 1.38 H, Sodium 137, Potassium 5.2 H, Chloride 102, Carbon Dioxide 29, Anion Gap 11.2, BUN 50 H, Creatinine 3.10 H, Estimated Creat Clear 23, Estimated GFR 20 L, Est GFR ( Amer) 24 L, Glucose 106 H, Calcium 8.9, Magnesium 1.9, Total Bilirubin 0.7, AST 24, ALT 16, Alkaline Phosphatase 65, Troponin I < 0.01, NT-Pro-B Natriuret Pep 671 H, Total Protein 6.4, Albumin 3.9, Globulin 2.5, Albumin/Globulin Ratio 1.6 10/11/23 18:23: VBG pH 7.35, VBG pCO2 49.0, VBG pO2 57.9 H, VBG HCO3 26.2, VBG Total CO2 27.7 H, VBG O2 Saturation 88.6 H, VBG Base Excess 0.5, VBG Lactic Acid 1.2 10/11/23 21:30: Troponin I < 0.01 10/12/23 05:42: WBC 6.2, RBC 4.71, Hgb 12.9 L, Hct 42.0, MCV 89.3, MCH 27.5, MCHC 30.8 L, RDW 18.6 H, Plt Count 115 L, MPV 9.7, Neut % (Auto) 76.6, Lymph % (Auto) 12.3, [place] % (Auto) 6.5, Eos % (Auto) 4.1, Baso % (Auto) 0.5, Neut # (Auto) 4.8, Lymph # (Auto) 0.8, [place] # (Auto) 0.4, Eos # (Auto) 0.3, Baso # (Auto) 0.0, Sodium 138, Potassium 4.5, Chloride 107, Carbon Dioxide 30, Anion Gap 5.5, BUN 45 H, Creatinine 2.60 H, Estimated Creat Clear 29, Estimated GFR 24 L, Est GFR ( Amer) 29 L D, Glucose 101 H, Calcium 8.5, Magnesium 2.0, Total Bilirubin 0.5, AST 23, ALT 13, Alkaline Phosphatase 55, Total Protein 5.4 L, Albumin 3.1 L D, Globulin 2.3, Albumin/Globulin Ratio 1.3 I & O for Last 24 hours: Intake & Output 10/09/23 10/10/23 10/11/23 10/12/23 23:59 23:59 23:59 23:59 Intake Total 1000 / 1740 1033 / 1033 Output Total 850 / 850 Balance 1000 / 1740 183 / 183 Weight 189 lb 12.8 oz 189 lb 3.211 oz Constitutional Constitutional: no acute distress and cooperative *Routine HEENT Exam Eye: Present PERRL *Routine Respiratory Exam Respiratory: Present CTA bilaterally; Absent accessory muscle use, wheezes or crackles *Routine Cardiovascular Exam Cardiovascular: Present RRR, Normal S1 and Normal S2; Absent murmur, gallop or rubs *Routine Abdominal Exam Abdominal: Present soft; Absent tenderness *Routine Extremities Exam Extremities: Present pulses intact; Absent cyanosis or edema Comments: Constant movement of feet and legs throughout exam Routine Back/Spine/Pelvis Exam Comments: Thoracic pain with movement *Routine Skin Exam Skin: Present intact; Absent erythema or wounds *Routine Neurological Exam Neurological: Present alert and oriented X3 Routine Psychiatric Exam Psychiatric: Present cooperative Meds Home Medications and Allergies Home Medications Medication Instructions Recorded Confirmed Type omeprazole 20 mg capsule,delayed 20 mg PO DAILY 10/16/18 10/11/23 History release ropinirole 3 mg tablet 3 mg PO HS 10/16/18 10/11/23 History promethazine 25 mg tablet 25 mg PO TIDP PRN Nausea 04/17/19 10/11/23 History oxycodone 10 mg tablet 10 mg PO Q12HP PRN Moderate Pain 08/14/19 10/12/23 History tizanidine 4 mg tablet 8 mg PO HS 08/14/19 10/11/23 History pramipexole 0.5 mg tablet 0.5 mg PO TID 03/20/20 10/11/23 History trazodone 100 mg tablet 100 mg PO HS 02/05/21 10/11/23 History ranolazine 1,000 mg 1,000 mg PO BID 03/24/21 10/11/23 History tablet,extended release,12 hr tadalafil 5 mg tablet 5 mg PO DAILY 12/15/21 10/11/23 History testosterone cypionate 200 mg/mL 0.75 mg IM DIRECTED HORMONE 12/15/21 10/11/23 History intramuscular oil REPLACEMENT ondansetron 4 mg disintegrating 4 mg PO Q8H PRN nausea and 06/15/22 10/12/23 Rx tablet vomiting 4 days #12 tabs sildenafil (pulm.hypertension) 20 20 mg PO DAILY PRN pulmonary 10/05/22 10/11/23 History mg tablet hypertension sacubitril 97 mg-valsartan 103 mg 1 tab PO BID 12/31/22 10/11/23 History tablet (Entresto) allopurinol 300 mg tablet 400 mg PO DAILY 01/12/23 10/11/23 History torsemide 100 mg tablet 100 mg PO DAILY #90 tabs 03/21/23 10/11/23 Rx baclofen 10 mg tablet 10 mg PO BID PRN Pain, Mild 07/04/23 10/11/23 History pregabalin 75 mg capsule 75 mg PO DAILY 07/04/23 10/11/23 History meclizine 25 mg tablet 25 mg PO QID PRN Dizziness Or 10/11/23 10/12/23 History Vertigo carvedilol 25 mg tablet 25 mg PO BIDWMEAL 10/12/23 10/12/23 History ferrous sulfate 325 mg (65 mg 325 mg PO DAILY 10/12/23 10/12/23 History iron) tablet (FeroSul) nitroglycerin 0.4 mg sublingual 0.4 mg sublingual NEEDED PRN 10/12/23 10/12/23 History tablet Chest Pain rivaroxaban 20 mg tablet (Xarelto) 20 mg PO DAILY 10/12/23 10/12/23 History New Prescriptions to Start Prescriptions: Allergies Allergy/AdvReac Type Severity Reaction Status Date / Time procaine Allergy Unknown Verified 09/05/23 11:33 empagliflozin AdvReac Mild itching Verified 09/05/23 11:33 [From Jardiance] rosuvastatin AdvReac muscle pain Verified 09/05/23 11:33 Assessment and Plan *Assessment and plan (1) Near syncope: Status: Acute Category: Medical Code(s): R55 - Syncope and collapse (2) LEXII (acute kidney injury): Status: Acute Category: Medical Code(s): N17.9 - Acute kidney failure, unspecified (3) HFrEF (heart failure with reduced ejection fraction): Status: Acute Category: Medical Code(s): I50.20 - Unspecified systolic (congestive) heart failure (4) Cardiomyopathy: Status: Chronic Qualifiers: Cardiomyopathy type: ischemic Qualified Code(s): I25.5 - Ischemic cardiomyopathy Category: Medical Code(s): I42.9 - Cardiomyopathy, unspecified (5) AICD (automatic cardioverter/defibrillator) present: Status: Chronic Category: Surgical Code(s): Z95.810 - Presence of automatic (implantable) cardiac defibrillator (6) Pulmonary HTN: Status: Acute Category: Medical Code(s): I27.20 - Pulmonary hypertension, unspecified (7) RLS (restless legs syndrome): Status: Acute Category: Medical Code(s): G25.81 - Restless legs syndrome (8) GERD (gastroesophageal reflux disease): Status: Acute Qualifiers: Esophagitis presence: without esophagitis Qualified Code(s): K21.9 - Gastro-esophageal reflux disease without esophagitis Category: Medical Code(s): K21.9 - Gastro-esophageal reflux disease without esophagitis Plan LEXII/Weakness/Dehydration - Baseline Cr 1.4, up to 3.1 here in setting of Entresto, Torsemide, and Vomiting - Improving with gentle fluid resuscitation. Discussed decreasing his torsemide use at home. HFrEF, EF 44%, status post ICD -Does not appear to be in acute exacerbation -Continue Entresto and carvedilol -Reduce torsemide dose and use sparingly CAD status post [place] 03/14 -CCS equals 0, no acute ischemic changes on EKG -Continue Xarelto, beta-jessica, statin Paroxysmal atrial fibrillation -Known diagnosis, sinus rhythm here -continue carvedilol and Xarelto Frequent falls, BUE/BLE involuntary contractions/spasm -Thoracic spine fracture last year -Head CT without bleed here -He is on chronic pain meds and neurologic agents -I recommend he see neurology outpatient and exercise extreme fall precaution in the interim Chronic nausea -Again suspect medication side effect -Defer to primary service 10/11 summary: Patient appears to have acute weakness and near syncope secondary to dehydration from vomiting. Agree with gentle fluid resuscitation. He needs to reduce his torsemide use at home which I discussed with patient. No other acute cardiac findings or concerns at this time. Patient can be discharged home later this afternoon to see if he is ambulating without symptoms. He needs office follow-up with us in 2 weeks.
[2023-10-12] MEDS: MORPHINE 2MG/ML SYRINGE 2 MG IV (12:34)
[2023-10-12] MEDS: PRAMIPEXOLE 0.5 MG 1 EACH PO (12:35)
[2023-10-12 16:21] LABS: Chloride 106 mmol/L (98-107); Sodium 138 mmol/L (136-145)
[2023-10-12 16:22] LABS: Potassium 4.6 mmoL/L (3.5-5.1)
[2023-10-12 16:24] LABS: Blood Urea Nitrogen 39 mg/dl (9-20); Creatinine Clearance Estimated 42 mL/min (50-200); Estimated Glomerular Filt Rate 37 ml/min (>60); GFR (African American) 44 ML/MIN (>60)
[2023-10-12 16:25] LABS: Anion Gap 8.6 mEq/L (5-15); Calcium 8.6 mg/dl (8.4-10.2); Carbon Dioxide 28 mmol/L (22.0-30.0); Glucose 108 mg/dl (74-100)
--- NOTE | 2023-10-12 16:54 | EXP.DC.SUM ---
General Admission date:: 10/11/23 Discharge date: 10/12/23 HPI HPI HPI: This is a 78 year old male PMHX with extensive cardiac history included but not limited to HFrEF, cardiomyopathy, AICD in place, MR, CAD, Pulmonary htn, restless leg syndrome, GERD, presented to ER for evaluation of increased weakness and multiples syncopal or near syncopal falls. patient has been experienced frequent drowsiness, and weakness, with eventually worsened today before being brought to hospital. History also obtained from at bedside, who confirmed. He denies any chest pain or palpitations, denies any fevers or chills, denies any abdominal pain, denies any shortness of breath. No changes in medications or new medications. No sick contacts or recent travel. admitted for treatment and management Hospital Course Hospital Course Hospital Course: 78 year old male PMHX with extensive cardiac history included but not limited to HFrEF, cardiomyopathy, AICD in place, MR, CAD, Pulmonary htn, restless leg syndrome, GERD, presented to ER for evaluation of increased weakness and multiples syncopal or near syncopal falls. Discussed with ED. agreed for admission. Plan as follow: Syncope or near syncope multiples falls - improved, likely due to hypovolemia, EKG and telemetry reviewed per cardiology, no cardiologic etiology suspected HFrEF - stable Cardiomyopathy - stable AICD Pulmonary HTN - stable f/u with cardiology in 1 -2 weeks, patient mentions he has appointement with them LEXII: - improved GERD -Protonix 40 mg daily Restless leg syndrome - stable -continue home Tizanidine 4mg and Ropinirole 3 mg nightly Exam Data for Last 24 hours Vital signs and Labs for Last 24 Hours: Temp Pulse Resp BP Pulse Ox O2 Del Method O2 Flow Rate 97.6 F 73 20 118/62 97 Room Air 2 10/12/23 16:00 10/12/23 16:00 10/12/23 16:00 10/12/23 16:00 10/12/23 16:00 10/12/23 16:00 10/12/23 06:37 Laboratory Results - last 24 hr 10/11/23 18:21: WBC 8.2, RBC 4.97, Hgb 13.8 L, Hct 43.4, MCV 87.4, MCH 27.8, MCHC 31.8, RDW 18.4 H, Plt Count 140 L, MPV 8.9, Neut % (Auto) 83.3 H, Lymph % (Auto) 8.9 L, [place] % (Auto) 5.1, Eos % (Auto) 2.4, Baso % (Auto) 0.3, Neut # (Auto) 6.9, Lymph # (Auto) 0.7, [place] # (Auto) 0.4, Eos # (Auto) 0.2, Baso # (Auto) 0.0, PT 14.6 H, INR 1.38 H, Sodium 137, Potassium 5.2 H, Chloride 102, Carbon Dioxide 29, Anion Gap 11.2, BUN 50 H, Creatinine 3.10 H, Estimated Creat Clear 23, Estimated GFR 20 L, Est GFR ( Amer) 24 L, Glucose 106 H, Calcium 8.9, Magnesium 1.9, Total Bilirubin 0.7, AST 24, ALT 16, Alkaline Phosphatase 65, Troponin I < 0.01, NT-Pro-B Natriuret Pep 671 H, Total Protein 6.4, Albumin 3.9, Globulin 2.5, Albumin/Globulin Ratio 1.6 10/11/23 18:23: VBG pH 7.35, VBG pCO2 49.0, VBG pO2 57.9 H, VBG HCO3 26.2, VBG Total CO2 27.7 H, VBG O2 Saturation 88.6 H, VBG Base Excess 0.5, VBG Lactic Acid 1.2 10/11/23 21:30: Troponin I < 0.01 10/12/23 05:42: WBC 6.2, RBC 4.71, Hgb 12.9 L, Hct 42.0, MCV 89.3, MCH 27.5, MCHC 30.8 L, RDW 18.6 H, Plt Count 115 L, MPV 9.7, Neut % (Auto) 76.6, Lymph % (Auto) 12.3, [place] % (Auto) 6.5, Eos % (Auto) 4.1, Baso % (Auto) 0.5, Neut # (Auto) 4.8, Lymph # (Auto) 0.8, [place] # (Auto) 0.4, Eos # (Auto) 0.3, Baso # (Auto) 0.0, Sodium 138, Potassium 4.5, Chloride 107, Carbon Dioxide 30, Anion Gap 5.5, BUN 45 H, Creatinine 2.60 H, Estimated Creat Clear 29, Estimated GFR 24 L, Est GFR ( Amer) 29 L D, Glucose 101 H, Calcium 8.5, Magnesium 2.0, Total Bilirubin 0.5, AST 23, ALT 13, Alkaline Phosphatase 55, Total Protein 5.4 L, Albumin 3.1 L D, Globulin 2.3, Albumin/Globulin Ratio 1.3 10/12/23 16:04: Sodium 138, Potassium 4.6, Chloride 106, Carbon Dioxide 28, Anion Gap 8.6, BUN 39 H, Creatinine 1.80 H D, Estimated Creat Clear 42, Estimated GFR 37 L, Est GFR ( Amer) 44 L D, Glucose 108 H, Calcium 8.6 I & O for Last 24 hours: Intake & Output 10/09/23 10/10/23 10/11/23 10/12/23 23:59 23:59 23:59 23:59 Intake Total 1000 / 1740 1513 / 1513 Output Total 1076 / 1076 Balance 1000 / 1740 437 / 437 Weight 86.092 kg 85.82 kg Constitutional Constitutional: no acute distress *Routine HEENT Exam Head: Present normocephalic Eye: Present EOMI and PERRL ENT: Present mucous membranes moist *Routine Neck Exam Neck: Present supple; Absent lymphadenopathy *Routine Respiratory Exam Respiratory: Present CTA bilaterally *Routine Cardiovascular Exam Cardiovascular: Present RRR *Routine Abdominal Exam Abdominal: Present soft and normoactive bowel sounds; Absent tenderness *Routine Extremities Exam Extremities: Absent cyanosis, clubbing or edema *Routine Skin Exam Skin: Present warm; Absent rash *Routine Neurological Exam Neurological: Present alert and oriented X3 Results Data Completed and Pending Labs on day of discharge: Labs from last 24 hours 10/12/23 10/12/23 10/11/23 16:04 05:42 21:30 WBC 6.2 RBC 4.71 Hgb 12.9 L Hct 42.0 MCV 89.3 MCH 27.5 MCHC 30.8 L RDW 18.6 H Plt Count 115 L MPV 9.7 Neut % (Auto) 76.6 Lymph % (Auto) 12.3 [place] % (Auto) 6.5 Eos % (Auto) 4.1 Baso % (Auto) 0.5 Neut # (Auto) 4.8 Lymph # (Auto) 0.8 [place] # (Auto) 0.4 Eos # (Auto) 0.3 Baso # (Auto) 0.0 PT INR VBG pH VBG pCO2 VBG pO2 VBG HCO3 VBG Total CO2 VBG O2 Saturation VBG Base Excess VBG Lactic Acid Sodium 138 138 Potassium 4.6 4.5 Chloride 106 107 Carbon Dioxide 28 30 Anion Gap 8.6 5.5 BUN 39 H 45 H Creatinine 1.80 H D 2.60 H Estimated Creat Clear 42 29 Estimated GFR 37 L 24 L Est GFR ( Amer) 44 L D 29 L D Glucose 108 H 101 H Calcium 8.6 8.5 Magnesium 2.0 Total Bilirubin 0.5 AST 23 ALT 13 Alkaline Phosphatase 55 Troponin I < 0.01 NT-Pro-B Natriuret Pep Total Protein 5.4 L Albumin 3.1 L D Globulin 2.3 Albumin/Globulin Ratio 1.3 10/11/23 10/11/23 18:23 18:21 WBC 8.2 RBC 4.97 Hgb 13.8 L Hct 43.4 MCV 87.4 MCH 27.8 MCHC 31.8 RDW 18.4 H Plt Count 140 L MPV 8.9 Neut % (Auto) 83.3 H Lymph % (Auto) 8.9 L [place] % (Auto) 5.1 Eos % (Auto) 2.4 Baso % (Auto) 0.3 Neut # (Auto) 6.9 Lymph # (Auto) 0.7 [place] # (Auto) 0.4 Eos # (Auto) 0.2 Baso # (Auto) 0.0 PT 14.6 H INR 1.38 H VBG pH 7.35 VBG pCO2 49.0 VBG pO2 57.9 H VBG HCO3 26.2 VBG Total CO2 27.7 H VBG O2 Saturation 88.6 H VBG Base Excess 0.5 VBG Lactic Acid 1.2 Sodium 137 Potassium 5.2 H Chloride 102 Carbon Dioxide 29 Anion Gap 11.2 BUN 50 H Creatinine 3.10 H Estimated Creat Clear 23 Estimated GFR 20 L Est GFR ( Amer) 24 L Glucose 106 H Calcium 8.9 Magnesium 1.9 Total Bilirubin 0.7 AST 24 ALT 16 Alkaline Phosphatase 65 Troponin I < 0.01 NT-Pro-B Natriuret Pep 671 H Total Protein 6.4 Albumin 3.9 Globulin 2.5 Albumin/Globulin Ratio 1.6 DS: Diagnosis Discharge Diagnosis (1) Near syncope: Status: Acute Code(s): R55 - Syncope and collapse (2) LEXII (acute kidney injury): Status: Acute Code(s): N17.9 - Acute kidney failure, unspecified (3) HFrEF (heart failure with reduced ejection fraction): Status: Acute Code(s): I50.20 - Unspecified systolic (congestive) heart failure (4) Cardiomyopathy: Status: Chronic Code(s): I42.9 - Cardiomyopathy, unspecified Qualifiers: Cardiomyopathy type: ischemic Qualified Code(s): I25.5 - Ischemic cardiomyopathy (5) AICD (automatic cardioverter/defibrillator) present: Status: Chronic Code(s): Z95.810 - Presence of automatic (implantable) cardiac defibrillator (6) Pulmonary HTN: Status: Acute Code(s): I27.20 - Pulmonary hypertension, unspecified (7) RLS (restless legs syndrome): Status: Acute Code(s): G25.81 - Restless legs syndrome (8) GERD (gastroesophageal reflux disease): Status: Acute Code(s): K21.9 - Gastro-esophageal reflux disease without esophagitis Qualifiers: Esophagitis presence: without esophagitis Qualified Code(s): K21.9 - Gastro-esophageal reflux disease without esophagitis Meds Home Medications and Allergies Home Medications Medication Instructions Recorded Confirmed Type omeprazole 20 mg capsule,delayed 20 mg PO DAILY 10/16/18 10/11/23 History release ropinirole 3 mg tablet 3 mg PO HS 10/16/18 10/11/23 History promethazine 25 mg tablet 25 mg PO TIDP PRN Nausea 04/17/19 10/11/23 History oxycodone 10 mg tablet 10 mg PO Q12HP PRN Moderate Pain 08/14/19 10/12/23 History tizanidine 4 mg tablet 8 mg PO HS 08/14/19 10/11/23 History pramipexole 0.5 mg tablet 0.5 mg PO TID 03/20/20 10/11/23 History trazodone 100 mg tablet 100 mg PO HS 02/05/21 10/11/23 History ranolazine 1,000 mg 1,000 mg PO BID 03/24/21 10/11/23 History tablet,extended release,12 hr tadalafil 5 mg tablet 5 mg PO DAILY 12/15/21 10/11/23 History testosterone cypionate 200 mg/mL 0.75 mg IM DIRECTED HORMONE 12/15/21 10/11/23 History intramuscular oil REPLACEMENT ondansetron 4 mg disintegrating 4 mg PO Q8H PRN nausea and 06/15/22 10/12/23 Rx tablet vomiting 4 days #12 tabs sildenafil (pulm.hypertension) 20 20 mg PO DAILY PRN pulmonary 10/05/22 10/11/23 History mg tablet hypertension sacubitril 97 mg-valsartan 103 mg 1 tab PO BID 12/31/22 10/11/23 History tablet (Entresto) allopurinol 300 mg tablet 400 mg PO DAILY 01/12/23 10/11/23 History torsemide 100 mg tablet 100 mg PO DAILY #90 tabs 03/21/23 10/11/23 Rx baclofen 10 mg tablet 10 mg PO BID PRN Pain, Mild 07/04/23 10/11/23 History pregabalin 75 mg capsule 75 mg PO DAILY 07/04/23 10/11/23 History meclizine 25 mg tablet 25 mg PO QID PRN Dizziness Or 10/11/23 10/12/23 History Vertigo carvedilol 25 mg tablet 25 mg PO BIDWMEAL 10/12/23 10/12/23 History ferrous sulfate 325 mg (65 mg 325 mg PO DAILY 10/12/23 10/12/23 History iron) tablet (FeroSul) nitroglycerin 0.4 mg sublingual 0.4 mg sublingual NEEDED PRN 10/12/23 10/12/23 History tablet Chest Pain rivaroxaban 20 mg tablet (Xarelto) 20 mg PO DAILY 10/12/23 10/12/23 History New Prescriptions to Start Prescriptions: Allergies Allergy/AdvReac Type Severity Reaction Status Date / Time procaine Allergy Unknown Verified 09/05/23 11:33 empagliflozin AdvReac Mild itching Verified 09/05/23 11:33 [From Jardiance] rosuvastatin AdvReac muscle pain Verified 09/05/23 11:33 Discharge Plan Disposition Patient Disposition: Home, Self-Care Condition: Good Follow up Plan Follow up with: Vitaly Suazo MD [Primary Care Provider] - 10/21/23 9:10 am Raheel Griffin MD [Staff Physician] - 10/26/23 2:15 pm Prescriptions/Medication Reconciliation: Continued ropinirole 3 mg tablet 3 mg PO HS tizanidine 4 mg tablet 8 mg PO HS Patient Comments: 1 in AM & 2 in PM promethazine 25 mg tablet 25 mg PO TIDP PRN (Reason: Nausea) ranolazine 1,000 mg tablet extended release 12 hr 1,000 mg PO BID torsemide 100 mg tablet 100 mg PO DAILY Qty: 90 3RF baclofen 10 mg tablet 10 mg PO BID PRN (Reason: Pain, Mild) pregabalin 75 mg capsule 75 mg PO DAILY Patient Comments: TAKE ONE (1) CAPSULE EVERY 24 HOURS BY ORAL ROUTE NEEDED FOR 30 DAYS. omeprazole 20 mg capsule,delayed release(DR/EC) 20 mg PO DAILY oxycodone 10 mg tablet 10 mg PO Q12HP PRN (Reason: Moderate Pain) pramipexole 0.5 mg tablet 0.5 mg PO TID sildenafil (pulm.hypertension) 20 mg tablet 20 mg PO DAILY PRN (Reason: pulmonary hypertension) Patient Comments: TAKE ONE TABLET BY MOUTH DAILY NEEDED allopurinol 300 mg tablet 400 mg PO DAILY trazodone 100 MG tablet 100 mg PO HS ondansetron 4 mg tablet,disintegrating 4 mg PO Q8H PRN (Reason: nausea and vomiting) 4 Days Qty: 12 0RF meclizine 25 mg Tablet 25 mg PO QID PRN (Reason: Dizziness Or Vertigo) carvedilol 25 mg tablet 25 mg PO BIDWMEAL Patient Comments: TAKE ONE (1) TABLET BY MOUTH TWICE DAILY WITH FOOD ferrous sulfate [FeroSul] 325 mg (65 mg iron) tablet 325 mg PO DAILY Xarelto 20 mg tablet 20 mg PO DAILY Patient Comments: TAKE 1 TABLET BY MOUTH EVERY DAY FOR BLOOD THINNER nitroglycerin 0.4 mg tablet, sublingual 0.4 mg sublingual NEEDED PRN (Reason: Chest Pain) testosterone cypionate 200 MG/ML oil 0.75 mg IM DIRECTED tadalafil 5 MG tablet 5 mg PO DAILY Entresto 97-103 mg tablet 1 tab PO BID Patient Comments: TAKE ONE (1) TABLET BY MOUTH TWICE DAILY Problem Reconciliation Problems Reviewed?: Yes Patient Discharge Instructions ACTIVITY: Ambulate as tolerated DIET: continue same diet Patient Instructions: DI for Syncope in Adults (Fainting), Acute Kidney Injury Providers Primary Care Provider: Vitaly Suazo Admit Provider: Essie Hopper Attending Provider: Essie Hopper
--- NOTE | 2023-10-12 21:11 | CA_ITS ---
FINAL REPORT TECHNIQUE: Color Doppler, duplex Doppler and back scale sonography of the bilateral neck arterial vasculature was performed. Velocities were measured in the carotid arteries. Stenosis evaluation based on the validated velocity criteria. CLINICAL HISTORY: syncope, HYN, HLD, AFib, CM, Pacer FINDINGS: The peak systolic velocity of the right common carotid artery is 102 cm/s. The peak systolic velocity of the right internal carotid artery is 80 cm/s and end diastolic velocity 16 cm/s. The ICA/CCA ratio is 0.94. A minimal amount of plaque is present. The right external carotid artery is patent. The right vertebral artery is patent with antegrade flow. The peak systolic velocity of the left common carotid artery is 97 cm/s. The peak systolic velocity of the left internal carotid artery is 69 cm/s and end diastolic velocity 14 cm/s. The ICA/CCA ratio is 0.71. A minimal amount of plaque is present. The left external carotid artery is patent.The left vertebral artery is patent with antegrade flow. IMPRESSION: Less than 50% bilateral carotid stenoses. Bilateral patent vertebral arteries with antegrade flow. If indicated, CTA or MRA could further evaluate. Reviewed, Interpreted and Dictated by Rakesh Chamberlain MD Transcribed by Aliza Marino Authenticated and . [facility]
--- NOTE | 2023-10-12 21:11 | CA_ITS ---
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 Costello CRT Ht: 5 ft 5 in Wt: 182lbs BSA: 1.90 BP: 107/58 mmHg Indications: Atrial Fibrillation, Fatigue, Hyperlipidemia, Cardiomyopathy, Hypertension/HDD, pacer, LEXII, Pulmonary HTN, MR, stents, 12/31/22 echo 44%, 12/15/21 echo 20% 2D Dimensions LA Volume 83.80 mL LA Volume Index 43.00 mL/m2 (M/F) 16-34 M-Mode Dimensions RVDd 2.81 cm (0.9-2.6) LA Diam 4.75 cm (1.9-4.0) LVDd 6.33 cm (3.5-5.7) LVDs 4.73 cm (3.5-5.7) IVSd 1.34 cm (0.6-1.1) PWd 1.16 cm (0.6-1.1) EF (Teich) 48.90% FS 25.30% EDV (Teich) 203.40 mL TAPSE 1.84 (<1.7) ESV (Teich) 103.90 mL LV Diastology E Decel Time 163 (160-240 msec) E/A Ratio 1.07 MED A' 6.00 cm/s LAT A' 10.30 cm/s Aortic Valve AO Peak GR. 9.40 mmHg Mitral Valve MV E Max Adriano. 107.0 (40-130 cm/s) MV A Velocity 100.0 (40-130 cm/s) E/A Ratio 1.07 MV PHT 48.0 ms Pulmonary Valve PV Peak Velocity 180.0 (50-150 cm/s) Tricuspid Valve TR P. Velocity 245.00 cm/s RAP Estimate 10.00 mmHg RVSP 34.10 mmHg Left Ventricle The left ventricle is severely dilated (LVEDVi 120 ml/m2). Left ventricular systolic function is mild to moderately decreased. There is normal left ventricular wall thickness. There is mild to moderate global hypokinesis present. There is severe hypokinesis of the inferior and inferoseptal LV olivares. Grade 2 diastolic dysfunction is present. LVEF is 40%. Right Ventricle The right ventricle is normal size. Right ventricle is mildly hypokinetic. There is a device lead in the right ventricle. Atria The left atrium is moderately dilated. Right atrium is moderately dilated. There is no Doppler evidence of interatrial shunt. Aortic Valve The aortic valve leaflets are mildly thickened. There is no aortic valvular stenosis. Trace aortic regurgitation. Mitral Valve The mitral valve leaflets are mildly thickened. The posterior leaflet appears restricted in motion and likely tethered. No evidence of mitral valve stenosis. Moderate mitral regurgitation. The MR jet is eccentric and posteriorly directed. The mechanism of MR is likely tethering of the posterior MV leaflet (Davion class IIIB). Tricuspid Valve The tricuspid valve leaflets are thin and pliable. Mild tricuspid regurgitation. RVSP is 20-25 mmHg. Pulmonic Valve The pulmonary valve is normal in structure. Mild pulmonic regurgitation. Great Vessels The aortic root is normal in size. The ascending aorta is normal in size. IVC is dilated, but collapses > 50% with respirophasic variation. RA pressure is estimated at 8 mmHg. Pericardium Trivial, circumferential pericardial effusion present. The largest pocket is noted anteriorly, measuring 0.3 mm in diastole. No evidence of chamber collapse. Other Information Study Quality: Fair Conclusion Severely dilated LV with mild to moderate reduction in LV systolic function (LVEF 40%). Grade 2 diastolic dysfunction. Severe hypokinesis of the inferior and inferoseptal LV olivares. Normal RV size with mild reduction in RV function. Biatrial dilation. Moderate MR. MR jet is eccentric and posteriorly directed (likely due to tethering of the posterior MV leaflet, Davion class IIIB). Mild TR, mild PI. Trivial, circumferential pericardial effusion present. The largest pocket is noted anteriorly, measuring 0.3 mm in diastole. No echo indications of tamponade. Electronically signed by : Priscilla Griffin MD 10/14/2023 01:29:56
--- NOTE | 2023-10-13 10:58 | CARE MANAGER ---
Contacted patient's . He was in [employer] walking around. She denies questions or concerns and states he is doing very well. They are aware of follow up appointment. KO Orourke
== END 2023-10-12 17:12 | disposition home or self-care (01) ==
LOC: ER 18:00 → 2ND 20:48
PROVIDERS: Nurse Practitioner Family; Admitting Provider Internal Medicine; Emergency Provider Emergency Medicine; PCP Family Medicine; Visit Provider Internal Medicine
DX: N17.9 Acute kidney failure, unspecified (principal); R55 Syncope and collapse; I50.22 Chronic systolic (congestive) heart failure; I25.5 Ischemic cardiomyopathy; Z95.810 Presence of automatic (implantable) cardiac defibrillator; I27.20 Pulmonary hypertension, unspecified; G25.81 Restless legs syndrome; K21.9 Gastro-esophageal reflux disease without esophagitis; Z79.899 Other long term (current) drug therapy; I48.0 Paroxysmal atrial fibrillation; Z79.01 Long term (current) use of anticoagulants; I25.10 Atherosclerotic heart disease of native coronary artery without angina pectoris; E78.5 Hyperlipidemia, unspecified; I11.0 Hypertensive heart disease with heart failure; R29.6 Repeated falls; E86.0 Dehydration; I34.0 Nonrheumatic mitral (valve) insufficiency
CPT/HCPCS: 36415; 70450; 71045; 80048; 80053; 82803; 83735; 83880; 84484; 85025; 85610; 93005; 93306; 93880; 99285; G0378

== ENCOUNTER 2024-05-31 12:30 | Outpatient (CLI) | payer MEDICARE, SELFPAY ==
--- NOTE | 2024-05-31 12:46 | CA_ITS ---
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 HTN, AFIB, hyperlipidemia, PALACIOS, PHTN, CAD, CM, AICD. 2D Dimensions Aortic Root 1.97 cm M: 3.1 - 3.7 LVEF (Lao's) 43.40 % M: 52 - 72 Left Atrium 5.17 cm M: 3.0 - 4.0 LV Volume 195.30 mL M: 62 - 150 LV Volume Index 105.0 mL/m2 M: 34 - 74 LA Volume 99.00 mL LA Volume Index 53.23 mL/m2 (M/F) 16-34 EF AP4 43.70 % EF AP2 42.2 % EF BP 43.4 % GL Strain -11.9 % M-Mode Dimensions RVDd 3.08 cm (0.9-2.6) LVDd 6.17 cm (3.5-5.7) Ao Diam 3.27 cm (2.0-3.7) LVDs 4.77 cm (3.5-5.7) IVSd 1.04 cm (0.6-1.1) PWd 0.72 cm (0.6-1.1) EF (Teich) 44.80% FS 22.70% EDV (Teich) 191.90 mL ESV (Teich) 106.00 mL LV Diastology E Decel Time 192 (160-240 msec) E/A Ratio 2.2 Mitral Valve MV E Max Adriano. 130.0 (40-130 cm/s) MV A Velocity 60.0 (40-130 cm/s) E/A Ratio 2.16 MV Decel. Time 192 (160-240 ms) Left Ventricle The left ventricle is normal size. Left ventricular systolic function is mild to moderately decreased. There is increased LV wall thickness. There is mild to moderate global hypokinesis present. Grade 2 diastolic dysfunction is present. LVEF is 40%. Right Ventricle The right ventricle is normal size. Right ventricle is mildly hypokinetic. There is a device lead in the right ventricle. Atria Left atrium is severely dilated. Right atrium is mildly dilated. There is no Doppler evidence of interatrial shunt. Aortic Valve The aortic valve is mildly thickened. There is no aortic valvular stenosis. No aortic regurgitation is present. Mitral Valve )The mitral valve leaflets the posterior leaflet appears tethered and restricted in motion. Severe mitral regurgitation is present. The MR jet is eccentric and posteriorly directed. The mechanism of MR is likely functional due to tethering of the posterior MV leaflet (class IIIB). Tricuspid Valve Tricuspid valve is grossly normal in structure and function. Trace tricuspid regurgitation. There is insufficient TR jet to estimate RVSP. Pulmonic Valve The pulmonary valve is normal in structure. Mild pulmonic regurgitation. Great Vessels The aortic root is normal in size. The IVC is not well-visualized. Pericardium There is a small sized, circumferential pericardial effusion present. The largest pocket is noted posteriorly and measures 0.9 cm in diastole. No clear echo indications of tamponade. No evidence of chamber collapse. Other Information Study Quality: Fair Conclusion Mild to moderate reduction in LV systolic function (LVEF 40%). Normal RV size with mild reduction in RV function. Biatrial dilation. Tethering of the posterior MV leaflet. Severe MR is present (posteriorly directed MR jet). Mild PI. Small sized, circumferential pericardial effusion present. The largest pocket is noted posteriorly and measures 0.9 cm in diastole. No clear echo indications of tamponade. No evidence of chamber collapse. Compared to prior study from 10/12/2023, the LVEF is unchanged. The MR severity appears worse. The pericardial effusion is now slightly larger. In the setting of severe MR, further evaluation with JOHN is suggested. Cardiac MRI (cardiomyopathy protocol) is also suggested. Serial TTE are recommended to evaluate for progression of pericardial effusion. Electronically signed by : Priscilla Griffin MD 05/31/2024 13:47:48
[2024-05-31 13:50] LABS: Free T4 (Free Thyroxine) 0.97 ng/dl (0.78-2.19)
[2024-05-31 13:56] LABS: Chloride 108 mmol/L (98-107); Sodium 140 mmol/L (136-145)
[2024-05-31 13:57] LABS: Potassium 4.8 mmoL/L (3.5-5.1)
[2024-05-31 13:59] LABS: Alanine Aminotransferase 16 U/L (12-78); Anion Gap 8.8 mEq/L (5-15); Aspartate Amino Transferase 32 U/L (17-59); Bilirubin,Unconjugated 0.2 mg/dL (0.0-1.1); Blood Urea Nitrogen 28 mg/dl (9-20); Carbon Dioxide 28 mmol/L (22.0-30.0); Cholesterol 147 mg/dl (140-200); Estimated Glomerular Filt Rate 42 ml/min (>60); GFR (African American) 51 ML/MIN (>60); Total Protein,Serum 6.2 g/dl (6.3-8.2); Triglycerides 101 mg/dl (30-150); VLDL Cholesterol 20 mg/dL (0-40)
[2024-05-31 14:00] LABS: Alkaline Phosphatase 39 U/L (38-126); Bilirubin,Direct 0.6 mg/dl (0.0-0.4); Bilirubin,Indirect 0.3 mg/dL (0.0-0.9); Bilirubin,Total 0.9 mg/dl (0.2-1.3); Calcium 8.7 mg/dl (8.4-10.2); Chol/HDL Ratio 4.5 (1-3.5); Glucose 71 mg/dl (74-100); HDL Cholesterol 33 mg/dl (40-60); Magnesium 2.1 mg/dl (1.6-2.3)
[2024-05-31 14:11] LABS: Direct LDL Cholesterol 90.26 mg/dL (100-129)
[2024-05-31 14:17] LABS: Basophils % 0.4 % (0.1-2.0); Eosinophils # 0.2 K/mm3 (0.0-0.4); Eosinophils % 3.8 % (0.1-12.0); Hematocrit 43.3 % (42.0-52.0); Hemoglobin 13.5 g/dL (14.1-18.0); Lymphocytes # 0.7 K/mm3 (0.7-4.5); Lymphocytes % 12.6 % (10-50); Mean Corpuscular Hemoglobin 28.3 pg (27.0-31.2); Mean Corpuscular Volume 91.1 fl (80-94); Mean Platelet Volume 8.4 fl (7.4-10.4); Monocytes # 0.5 K/mm3 (0.1-1.0); Monocytes % 8.3 % (1.7-9.3); Neutrophils # 4.3 K/mm3 (1.8-7.8); Neutrophils % 74.9 % (37.0-80.0); Platelet Count 139 K/mm3 (142-424); Red Blood Count 4.76 M/mm3 (4.60-6.20); Red Cell Distribution Width 17.8 % (11.5-17.5); White Blood Count 5.7 K/mm3 (4.8-10.8)
[2024-05-31 14:31] LABS: Thyroid Stimulating Hormone 2.49 uIU/mL (0.465-4.68)
== END 2024-05-31 23:59 | disposition home or self-care (01) ==
LOC: RT 12:31
PROVIDERS: PCP Family Medicine; Visit Provider Nurse Practitioner Family
DX: I51.7 Cardiomegaly (principal); I42.8 Other cardiomyopathies; I31.39 Other pericardial effusion (noninflammatory); I25.10 Atherosclerotic heart disease of native coronary artery without angina pectoris; I50.20 Unspecified systolic (congestive) heart failure; E78.5 Hyperlipidemia, unspecified
CPT/HCPCS: 36415; 80048; 80061; 80076; 83735; 84439; 84443; 85025; 93306

== ENCOUNTER 2024-06-13 07:37 | Day surgery (SDC) | payer MEDICARE, SELFPAY ==
[2024-06-12 15:53] VITALS: BMI 27.9
[2024-06-13 08:09] VITALS: BP 118/75; PULSE 62; RESP 16; TEMP 37.2; O2SAT 98
--- NOTE | 2024-06-13 08:09 | ECG_ITS ---
APPROVED REPORT Exam: Resting ECG HR:60 bpm ECG Measurements Heart Rate 60 AXES CO 213 P 179 QRSd 124 QRS 100 QT 458 T -84 QTc 458 Conclusion ELECTRONIC ATRIAL PACEMAKER BORDERLINE RIGHT AXIS DEVIATION [QRS AXIS > 90] MODERATE INTRAVENTRICULAR CONDUCTION DELAY [105+ ms QRS DURATION, 80+ ms Q/S IN V1/V2, NO Q AND 60+ ms R IN I/aVL/V5/V6] NONSPECIFIC T-WAVE ABNORMALITY ABNORMAL ECG UNCONFIRMED REPORT Electronically signed by : Mayank Ozuna MD 06/14/2024 16:09:50
[2024-06-13 08:13] LABS: Hematocrit 41.9 % (42.0-52.0); Hemoglobin 13.5 g/dL (14.1-18.0); Mean Corpuscular HGB Conc 32.2 g/dL (31.8-35.4); Mean Corpuscular Hemoglobin 28.2 pg (27.0-31.2); Mean Corpuscular Volume 87.5 fl (80-94); Mean Platelet Volume 11.4 fl (7.4-10.4); Monocytes % 6.9 % (1.7-9.3); Neutrophils % 80.5 % (37.0-80.0); Platelet Count 125 K/mm3 (142-424); Red Blood Count 4.79 M/mm3 (4.60-6.20); Red Cell Distribution Width 16.1 % (11.5-17.5); White Blood Count 5.9 K/mm3 (4.8-10.8)
[2024-06-13 08:14] LABS: Basophils % 0.5 % (0.1-2.0); Eosinophils # 0.2 K/mm3 (0.0-0.4); Eosinophils % 2.9 % (0.1-12.0); Lymphocytes # 0.5 K/mm3 (0.7-4.5); Monocytes # 0.4 K/mm3 (0.1-1.0); Neutrophils # 4.8 K/mm3 (1.8-7.8)
--- NOTE | 2024-06-13 08:19 | CA_ITS ---
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 Type of Sedation : MAC Sedation start time: 10:45 Case end Time: 10:58 Throughout the procedure, the blood pressure, pulse oximetry, cardiac rhythm, and rate were monitored. The patient tolerated the procedure without adverse effects. Recovery from conscious sedation was uneventful and vital signs were stable. Left Ventricle The left ventricle is moderately dilated. The left ventricular systolic function is moderately reduced. There is increased LV wall thickness. There is moderate global hypokinesis present. Grade 3 diastolic dysfunction is present. LVEF is 35-40%. Right Ventricle Right ventricle is moderately dilated. Right ventricle is moderately hypokinetic. Atria The left atrium is dilated. No thrombus is visualized in the left atrium or appendage. The right atrium is dilated. Interatrial septum is intact without evidence of ASD or PFO. Aortic Valve The aortic valve is mildly thickened. Mild aortic regurgitation. There is no aortic valvular stenosis. Mitral Valve The mitral valve leaflets are mildly thickened. The posterior mitral valve leaflet is tethered and restricted in motion. No evidence of mitral valve stenosis. Severe mitral regurgitation is present. The MR jet is eccentric and posteriorly directed. The mechanism of MR is likely tethering of the posterior mitral valve leaflet (Davion class IIIb). EROA is 0.50 cm2. Regurgitant volume is 93 mL. Regurgitant fraction is 67%. There is pulmonary vein systolic flow reversal, suggestive of significant MR. Tricuspid Valve The tricuspid valve leaflets are thin and pliable. Mild tricuspid regurgitation. RVSP is 20-25 mmHg. Pulmonic Valve The pulmonary valve is normal in structure. Trace pulmonic regurgitation. Great Vessels The aortic root is normal in size. The ascending aorta is normal in size. Pericardium There is a small sized, circumferential pericardial effusion present. The largest pocket approximately 0.8 cm in diastole. No echo indications of tamponade. Other Information Study Quality: Adequate Conclusion Moderate reduction global LV systolic function (LVEF 35-40%) in the setting of severe MR. Moderate RV dilation with moderate reduction in RV function. Biatrial dilation. Tethering of the posterior MV leaflet. Severe mitral regurgitation is present. The MR jet is eccentric and posteriorly directed. The mechanism of MR is likely tethering of the posterior mitral valve leaflet (Davion class IIIb). EROA is 0.50 cm2. Regurgitant volume is 93 mL. Regurgitant fraction is 67%. There is pulmonary vein systolic flow reversal, suggestive of significant MR. Mild TR. Small sized, circumferential pericardial effusion present. The largest pocket approximately 0.8 cm in diastole. No echo indications of tamponade. In the setting of clinical symptoms and cardiomyopathy with severe MR due to tethering of the posterior MV leaflet despite GDMT, early referral for interventional cardiology versus cardiothoracic surgery as recommended for further evaluation of surgical MVR vs. MV-SHANTELL. Electronically signed by : Priscilla Griffin MD 06/14/2024 00:05:55
[2024-06-13] MEDS: LACTATED RINGERS 1000ML 1,000 ML 25 ML IV (08:27)
[2024-06-13 08:28] LABS: Chloride 103 mmol/L (98-107); Potassium 4.1 mmoL/L (3.5-5.1); Sodium 135 mmol/L (136-145)
[2024-06-13 08:31] LABS: Blood Urea Nitrogen 24 mg/dl (9-20); Creatinine Clearance Estimated 48 mL/min (50-200); Estimated Glomerular Filt Rate 49 ml/min (>60); GFR (African American) 59 ML/MIN (>60)
[2024-06-13 08:32] LABS: Anion Gap 7.1 mEq/L (5-15); Calcium 9.2 mg/dl (8.4-10.2); Carbon Dioxide 29 mmol/L (22.0-30.0); Glucose 103 mg/dl (74-100)
[2024-06-13 08:33] LABS: INR 1.02 (0.9-1.1); Prothrombin Time 11.4 seconds (10.1-12.5)
--- NOTE | 2024-06-13 08:53 | EXP.ANES.CKL ---
[facility] Disclaimer: The information contained in this section may have been updated after the patient was seen, as this information can be updated by other users. Medical History (Updated 06/13/24 @ 08:18 by Kely Aj RN) History of heart attack HFrEF (heart failure with reduced ejection fraction) Paroxysmal atrial fibrillation Right lower lobe pneumonia Shortness of Breath GERD (gastroesophageal reflux disease) RLS (restless legs syndrome) GERMAN (obstructive sleep apnea) Fibromyalgia Arthritis Afib HTN (hypertension) CAD (coronary artery disease) Pulmonary HTN Displacement of cardiac pulse generator (battery), initial encounter Elevated left ventricular end-diastolic pressure (LVEDP) Crescendo angina Cardiomyopathy Near syncope Dizziness MR (mitral regurgitation) Blockage of coronary artery of heart Pericarditis Failure of generator of implanted defibrillator 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 heart 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 Chronic systolic heart failure Hyperlipemia Surgical History History of carpal tunnel release History of cardiac cath History of cholecystectomy AICD (automatic cardioverter/defibrillator) present Family History Other Heart attack Hyperlipidemia Hypertension Social History (Updated 06/13/24 @ 08:18 by Kely Aj RN) Smoking Status: Never smoker second hand exposure: No alcohol intake: never substance use type: denies use current occupational status: retired Travel in the last 8 weeks: None household members: spouse housing: house current occupational exposures/hazards: No caffeine: Yes Have you lived/traveled outside [place] in past 30 days?: No Contact w/someone who lives/traveled outside US past 30 days?: No Exposure to someone with infectious disease in past 14 days?: No Do you have a fever (greater than 100.4 F or 38 C)?: No Have you tested positive for COVID-19: Yes Exposed to someone with COVID-19 in past 14 days?: No Do you have a sore throat?: No Do you have a cough?: No Do you have any weakness?: No Are you experiencing any nausea/vomitting?: No Do you have any diarrhea?: No Are you experiencing any unusual bleeding?: No Do you have any muscle aches/pain?: No Do you have any abdominal pain?: No Are you experiencing loss of taste or smell?: No [facility] Anesthesia Checklist Patient Identification Patient Identification: Arm Band, Family and Verbal (Name & ) Structural Data Admitted From: Home Planned Operative Procedure/s: JOHN Consent for Planned Operative Procedure(s) Verified: Yes Verified Documents: Surgical Consent and History and Physical NPO Status Verified Time NPO: 18:00 Chart Verification Results Verified: CBC, BMP, ECG and Chest Xray Additional verifications Patient : No Anesthesia Reactions: No Hx Blood Transfusions: No Blood Transfusion Reaction: No Cardiovascular Assessment Heart Sounds: S1 & S2 Pulse Rhythm: Irregular Peripheral Edema: No Airway Assessment Mallampati Score:: Class II C-Spine Mobility Assessed: Yes (Limited flexion & extension) TMJ Mobility Assessed: Yes Dentition: Good Dentition (Nothing loose per pt.) Neurological Assessment Level of Consciousness: Awake, Alert, Appropriate and Follows Commands Hx Seizures: No Numbness or tingling in extremities: No Anesthesia Plan Anesthesia Risk discussed: Yes Anesthesia Plan: Verified ASA Class: IV Anesthesia Type: MAC
[2024-06-13 10:33] VITALS: O2SAT 100
[2024-06-13 10:58] VITALS: BP 141/86; PULSE 63; RESP 15; TEMP 36.3; O2SAT 91
[2024-06-13 11:08] VITALS: BP 115/51; PULSE 62; RESP 16; O2SAT 91
[2024-06-13 11:18] VITALS: BP 107/59; PULSE 64; RESP 17; O2SAT 95
[2024-06-13 11:28] VITALS: BP 118/51; PULSE 67; RESP 16; TEMP 36.6; O2SAT 94
== END 2024-06-13 11:35 | disposition home or self-care (01) ==
PROVIDERS: PCP Family Medicine; Visit Provider Internal Medicine
DX: I34.0 Nonrheumatic mitral (valve) insufficiency (principal); Z95.810 Presence of automatic (implantable) cardiac defibrillator; I48.0 Paroxysmal atrial fibrillation; I11.0 Hypertensive heart disease with heart failure; I50.22 Chronic systolic (congestive) heart failure; I31.39 Other pericardial effusion (noninflammatory); I42.9 Cardiomyopathy, unspecified; Z79.899 Other long term (current) drug therapy
CPT/HCPCS: 80048; 85025; 85610; 93005; 93270; 93312; 93319; J7120

== ENCOUNTER 2024-09-08 14:43 | Observation (INO) | payer MEDICARE, SELFPAY ==
--- NOTE | 2024-09-08 14:52 | PC.NURSE ---
arrived to floor by sundeep from [facility]
[2024-09-08 15:10] VITALS: BMI 27.8
[2024-09-08 15:11] VITALS: BP 98/49; PULSE 82; RESP 20; TEMP 36.9; O2SAT 95
--- NOTE | 2024-09-08 15:12 | CT_ITS ---
PROCEDURE INFORMATION: Exam: CTA Chest With Contrast Exam date and time: 09/08/2024 3:43 PM Age: 78 years old Clinical indication: Other: Chest pain TECHNIQUE: Imaging protocol: Computed tomographic angiography of the chest with contrast. Exam focused on the arteries. 3D rendering (Not supervised by radiologist): MIP and/or 3D reconstructed images were created by the technologist. Radiation optimization: All CT scans at this facility use at least one of these dose optimization techniques: automated exposure control; mA and/or kV adjustment per patient size (includes targeted exams where dose is matched to clinical indication); or iterative reconstruction. Contrast material: ISO 370; Contrast volume: 80 ml; Contrast route: INTRAVENOUS (IV); COMPARISON: CT ANGIO CHEST PE PROTOCOL 03/24/2021 2:10 PM FINDINGS: Tubes, catheters and devices: Transvenous pacemaker leads in the heart. Battery device in the soft tissues of the left anterior chest Pulmonary arteries: Normal. No pulmonary emboli. Aorta: Unremarkable. No aortic aneurysm. No aortic dissection. Other arteries: Reflux of contrast into the vascular structures posterior to the left upper lobe Lungs: Opacities in the lower lobes may represent atelectasis or pneumonia. Pleural spaces: Small bilateral pleural effusions. Heart: There is calcification of the aortic valve annulus. There is calcification of the mitral valve annulus. Coronary arteries: Coronary artery calcifications may indicate coronary artery disease. Lymph nodes: Unremarkable. No enlarged lymph nodes. Bones/joints: Posterior subluxation of the medial left clavicle to the sternum. (series 5, image 15). Pericardial effusion measuring 21.6 mm.. Soft tissues: Unremarkable. IMPRESSION: 1. Posterior subluxation of the medial left clavicle to the sternum. (series 5, image 15). Pericardial effusion measuring 21.6 mm.. 2. Opacities in the lower lobes may represent atelectasis or pneumonia. 3. Small bilateral pleural effusions.
--- NOTE | 2024-09-08 15:12 | CT_ITS ---
PROCEDURE INFORMATION: Exam: CTA Abdomen and Pelvis With Contrast Exam date and time: 09/08/2024 3:43 PM Age: 78 years old Clinical indication: Other: Epigastric pain TECHNIQUE: Imaging protocol: Computed tomographic angiography of the abdomen and pelvis with contrast. Exam focused on the arteries. 3D rendering (Not supervised by radiologist): MIP and/or 3D reconstructed images were created by the technologist. Radiation optimization: All CT scans at this facility use at least one of these dose optimization techniques: automated exposure control; mA and/or kV adjustment per patient size (includes targeted exams where dose is matched to clinical indication); or iterative reconstruction. Contrast material: ISO 370; Contrast volume: 80 ml; Contrast route: INTRAVENOUS (IV); COMPARISON: CT ANGIO CHEST PE PROTOCOL 03/24/2021 2:10 PM FINDINGS: Aorta: No aneurysm of the aorta. No dissection of the aorta. 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 Series 6, image 56. Renal arteries: No occlusion or significant stenosis. Right iliac arteries: No occlusion or significant stenosis. Left iliac arteries: No occlusion or significant stenosis. Liver: No mass. Gallbladder and biliary ducts: Cholecystectomy Pancreas: Mild pancreatic atrophy Spleen: Unremarkable. No splenomegaly. Adrenal glands: Unremarkable. No mass. Kidneys and ureters: Unremarkable. No solid mass. No hydronephrosis. Stomach and bowel: 3 cm collection of air and fluid projecting off of the 3rd duodenum. Most likely represents duodenal diverticulum., Less likely duodenal ulcer. Diverticulosis of the rectosigmoid. No diverticulitis Appendix: No evidence of appendicitis. Intraperitoneal space: Unremarkable. No free air. No significant fluid collection. Lymph nodes: Unremarkable. No enlarged lymph nodes. Urinary bladder: Unremarkable. No mass. Reproductive: Unremarkable as visualized. Bones/joints: No acute fracture. Soft tissues: Unremarkable. IMPRESSION: 1. No aneurysm of the aorta. 2. No dissection of the aorta. 3. 3 cm collection of air and fluid projecting off of the 3rd duodenum. Most likely represents duodenal diverticulum., Less likely duodenal ulcer. 4. 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 Series 6, image 56.
[2024-09-08 15:37] LABS: Basophils % 0.1 % (0.1-2.0); Eosinophils # 0.1 K/mm3 (0.0-0.4); Eosinophils % 0.6 % (0.1-12.0); Hematocrit 33.4 % (42.0-52.0); Hemoglobin 11.3 g/dL (14.1-18.0); Lymphocytes # 0.5 K/mm3 (0.7-4.5); Lymphocytes % 5.8 % (10-50); Mean Corpuscular HGB Conc 33.8 g/dL (31.8-35.4); Mean Corpuscular Hemoglobin 29.7 pg (27.0-31.2); Mean Corpuscular Volume 87.9 fl (80-94); Mean Platelet Volume 11.5 fl (7.4-10.4); Monocytes # 0.7 K/mm3 (0.1-1.0); Monocytes % 9.2 % (1.7-9.3); Neutrophils # 6.5 K/mm3 (1.8-7.8); Platelet Count 130 K/mm3 (142-424); Red Cell Distribution Width 14.9 % (11.5-17.5); White Blood Count 7.8 K/mm3 (4.8-10.8)
[2024-09-08 15:44] LABS: Alanine Aminotransferase 18 U/L (12-78); Albumin Level 3.7 g/dl (3.5-5.0); Albumin/Globulin Ratio 1.6 (1.1-1.8); Alkaline Phosphatase 44 U/L (38-126); Anion Gap 9.6 mEq/L (5-15); Aspartate Amino Transferase 30 U/L (17-59); Bilirubin,Total 0.7 mg/dl (0.2-1.3); Blood Urea Nitrogen 49 mg/dl (9-20); Calcium 8.9 mg/dl (8.4-10.2); Carbon Dioxide 26 mmol/L (22.0-30.0); Chloride 104 mmol/L (98-107); Chol/HDL Ratio 3.6 (1-3.5); Cholesterol 137 mg/dl (140-200); Creatinine Clearance Estimated 47 mL/min (50-200); Estimated Glomerular Filt Rate 49 ml/min (>60); GFR (African American) 59 ML/MIN (>60); Globulin 2.3 g/dL (1.3-3.2); Glucose 106 mg/dl (74-100); HDL Cholesterol 38 mg/dl (40-60); Lipase 51 U/L (23-300); Potassium 4.6 mmoL/L (3.5-5.1); Sodium 135 mmol/L (136-145); Triglycerides 53 mg/dl (30-150); VLDL Cholesterol 11 mg/dL (0-40)
[2024-09-08 15:48] LABS: D-Dimer 0.35 ug/mL (0.0-0.5)
[2024-09-08 15:53] LABS: Hemoglobin A1C 5.1 % (4.0-6.0)
[2024-09-08] MEDS: 0.9 % SODIUM CHLORIDE 50 ML VIAL IV (15:54)
[2024-09-08] MEDS: SODIUM CHLORIDE 0.9% 10ML SYR (RAD ONLY) 10 ML IV (15:54)
[2024-09-08 15:55] LABS: Direct LDL Cholesterol 68.18 mg/dL (100-129)
[2024-09-08] MEDS: IOPAMIDOL-370 (76%);100ML BOTTLE 80 ML IV (15:55)
[2024-09-08 15:58] LABS: Troponin I 0.02 ng/ml (0.00-0.034)
[2024-09-08] MEDS: BELLADONNA ALKALOIDS 60 ML ML PO (16:07)
[2024-09-08 16:13] VITALS: PULSE 80
[2024-09-08 16:17] LABS: Thyroid Stimulating Hormone 2.42 uIU/mL (0.465-4.68)
[2024-09-08 17:08] VITALS: BP 119/47; PULSE 79
--- NOTE | 2024-09-08 17:21 | P.HP_ITS ---
History of Present Illness *Admission Date: 09/08/24 *Reason for visit:: Chest pain *History of present illness: Chino Bello is a 78-year-old male with a medical history significant for CAD with 3 stents, HFrEF 40%, mitral valve regurgitation s/p mitral valve repair 08/16/2024, A-fib on Xarelto, AICD who presented to [facility] today with concerns of chest pain that is worse with inspiration. Workup there was not significant for STEMI/NSTEMI, was given Nitropaste without significant improvement of symptoms. 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 On arrival, patient was uncomfortable and had epigastric regional pain without radiation to shoulder, back. No acute ischemic changes on EKG. No shortness of breath but patient does state the pain is worse with inspiration and he is having a hard time breathing because of it. He had significant tenderness to deep palpation in the epigastric region, which improved with GI cocktail. Patient does have a history of GERD and has been adherent to his omeprazole. Workup significant for troponin 0.02, CTA chest showing bibasilar opacities atelectasis versus pneumonia, posterior subluxation of medial left clavicle to the sternum. CTA ab domen/pelvis showed no PE, but 3 mm collection of air and fluid projecting of third duodenum likely representing diverticulum versus ulcer and stenosis within the proximal SMA artery. [facility] Disclaimer: The information contained in this section may have been updated after the patient was seen, as this information can be updated by other users. Medical History History of heart attack HFrEF (heart failure with reduced ejection fraction) Paroxysmal atrial fibrillation Right lower lobe pneumonia Shortness of Breath GERD (gastroesophageal reflux disease) RLS (restless legs syndrome) GERMAN (obstructive sleep apnea) Fibromyalgia Arthritis Afib HTN (hypertension) CAD (coronary artery disease) Pulmonary HTN Displacement of cardiac pulse generator (battery), initial encounter Elevated left ventricular end-diastolic pressure (LVEDP) Crescendo angina Cardiomyopathy Near syncope Dizziness MR (mitral regurgitation) Blockage of coronary artery of heart Pericarditis Failure of generator of implanted defibrillator Systolic heart failure 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) use of anticoagulants Chronic systolic heart failure Hyperlipemia Surgical History History of carpal tunnel release History of cardiac cath History of cholecystectomy AICD (automatic cardioverter/defibrillator) present Family History Other Heart attack Hyperlipidemia Hypertension Social History Smoking Status: Never smoker second hand exposure: No alcohol intake: never substance use type: denies use current occupational status: retired Travel in the last 8 weeks: None household members: spouse housing: house current occupational exposures/hazards: No caffeine: Yes Other Medical History Have you received the Flu Vaccine for this season: Yes Have you received the Pneumonia Vaccine: Yes Meds Home Medications and Allergies Home Medications ?Medication ?Instructions ?Recorded ?Confirmed ?Type omeprazole 20 mg capsule,delayed 20 mg PO DAILY 10/16/18 08/23/24 History release ropinirole 3 mg tablet 3 mg PO HS 10/16/18 08/23/24 History promethazine 25 mg tablet 25 mg PO TIDP PRN Nausea 04/17/19 08/23/24 History oxycodone 10 mg tablet 10 mg PO Q12HP PRN Moderate Pain 08/14/19 08/23/24 History tizanidine 4 mg tablet 8 mg PO HS 08/14/19 08/23/24 History pramipexole 0.5 mg tablet 0.5 mg PO TID 03/20/20 08/23/24 History trazodone 100 mg tablet 100 mg PO HS 02/05/21 08/23/24 History ranolazine 1,000 mg 1,000 mg PO BID 03/24/21 08/23/24 History tablet,extended release,12 hr tadalafil 5 mg tablet 5 mg PO DAILY 12/15/21 08/23/24 History testosterone cypionate 200 mg/mL 0.75 mg IM DIRECTED HORMONE 12/15/21 08/23/24 History intramuscular oil REPLACEMENT ondansetron 4 mg disintegrating 4 mg PO Q8H PRN nausea and 06/15/22 08/23/24 Rx tablet vomiting 4 days #12 tabs sildenafil (pulm.hypertension) 20 20 mg PO DAILY PRN pulmonary 10/05/22 08/23/24 History mg tablet hypertension sacubitril 97 mg-valsartan 103 mg 1 tab PO BID 12/31/22 08/23/24 History tablet (Entresto) allopurinol 300 mg tablet 400 mg PO DAILY 01/12/23 08/23/24 History baclofen 10 mg tablet 10 mg PO BID PRN Pain, Mild 07/04/23 08/23/24 History pregabalin 75 mg capsule 75 mg PO DAILY 07/04/23 08/23/24 History carvedilol 25 mg tablet 25 mg PO BIDWMEAL 10/12/23 08/23/24 History nitroglycerin 0.4 mg sublingual 0.4 mg sublingual NEEDED PRN 10/12/23 08/23/24 History tablet Chest Pain rivaroxaban 20 mg tablet (Xarelto) 20 mg PO DAILY 10/12/23 08/23/24 History torsemide 20 mg tablet 20 mg PO DAILY PRN edema #30 tabs 01/04/24 08/23/24 Rx New Prescriptions to Start Prescriptions: Allergies Allergy/AdvReac Type Severity Reaction Status Date / Time procaine Allergy Unknown Unknown Verified 08/23/24 11:02 allergy reaction empagliflozin (From AdvReac Mild itching Verified 08/23/24 11:02 Jardiance) rosuvastatin AdvReac muscle pain Verified 08/23/24 11:02 Exam Data for Last 24 hours Vital signs and Labs for Last 24 Hours: Temp Pulse Resp BP Pulse Ox O2 Del Method O2 Flow Rate 98.5 F 79 20 119/47 L 95 Room Air 2 09/08/24 15:11 09/08/24 17:08 09/08/24 15:11 09/08/24 17:08 09/08/24 15:11 09/08/24 15:11 09/08/24 15:00 Laboratory Results - last 24 hr 09/08/24 15:25: WBC 7.8, RBC 3.80 L, Hgb 11.3 L, Hct 33.4 L, MCV 87.9, MCH 29.7, MCHC 33.8, RDW 14.9, Plt Count 130 L, MPV 11.5 H, Neut % (Auto) 84.0 H, Lymph % (Auto) 5.8 L, [place] % (Auto) 9.2, Eos % (Auto) 0.6, Baso % (Auto) 0.1, Neut # (Auto) 6.5, Lymph # (Auto) 0.5 L, [place] # (Auto) 0.7, Eos # (Auto) 0.1, Baso # (Auto) 0.0, D-Dimer 0.35, Sodium 135 L, Potassium 4.6, Chloride 104, Carbon Dioxide 26, Anion Gap 9.6, BUN 49 H, Creatinine 1.40 H, Estimated Creat Clear 47, Estimated GFR 49 L, Est GFR ( Amer) 59, Glucose 106 H, Hemoglobin A1c 5.1, Calcium 8.9, Total Bilirubin 0.7, AST 30, ALT 18, Alkaline Phosphatase 44, Troponin I 0.02, Total Protein 6.0 L, Albumin 3.7, Globulin 2.3, Albumin/Globulin Ratio 1.6, Triglycerides 53, Cholesterol 137 L, LDL Cholesterol Direct 68.18 L, VLDL Cholesterol 11, HDL Cholesterol 38 L, Cholesterol/HDL Ratio 3.6 H, Lipase 51, TSH 2.42 I & O for Last 24 hours: Intake & Output 09/05/24 09/06/24 09/07/24 09/08/24 23:59 23:59 23:59 23:59 Output Total 150 / 150 Balance -150 / -150 Weight 75.75 kg Constitutional Constitutional: no acute distress *Routine HEENT Exam Head: Present normocephalic Eye: Present EOMI and PERRL ENT: Present mucous membranes moist *Routine Neck Exam Neck: Present supple; Absent lymphadenopathy *Routine Respiratory Exam Respiratory: Present CTA bilaterally *Routine Cardiovascular Exam Cardiovascular: Present RRR *Routine Abdominal Exam Abdominal: Present soft, normoactive bowel sounds and tenderness *Routine Rectal Exam Rectal:: deferred *Routine Genitalia Exam Genitalia:: deferred *Routine Extremities Exam Extremities: Absent cyanosis, clubbing or edema *Routine Skin Exam Skin: Present warm; Absent rash *Routine Neurological Exam Neurological: Present alert and oriented X3 Assessment and Plan *Assessment and plan (1) Epigastric pain: Status: Acute Category: Medical Code(s): R10.13 - Epigastric pain Plan Chino Bello is a 78-year-old male with a medical history significant for CAD with 3 stents, HFrEF 40%, mitral valve regurgitation s/p mitral valve repair 08/16/2024, A-fib on Xarelto, AICD who presented to [facility] today with concerns of chest pain that is worse with inspiration. Workup there was not significant for STEMI/NSTEMI, was given Nitropaste without significant improvement of symptoms. 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 On arrival, patient was uncomfortable and had epigastric regional pain without radiation to shoulder, back. No acute ischemic changes on EKG. No shortness of breath but patient does state the pain is worse with inspiration and he is having a hard time breathing because of it. He had significant tenderness to deep palpation in the epigastric region, which improved with GI cocktail. Patient does have a history of GERD and has been adherent to his omeprazole. Workup significant for troponin 0.02, CTA chest showing bibasilar opacities atelectasis versus pneumonia, posterior subluxation of medial left clavicle to the sternum. CTA abdomen/pelvis showed no PE, but 3 mm collection of air and fluid projecting of third duodenum likely representing diverticulum versus ulcer and stenosis within the proximal SMA artery. #Epigastric pain #Suspected duodenal ulcer #SMA stenosis ? Tenderness to deep palpation in the epigastric region. CT abdomen shows duodenal diverticulum versus ulcer, SMA stenosis. ? Lipase, lactic acid, WBC, troponin, D-dimer normal. Hemoglobin 11.3, patient denies dark/bloody stools. ? At this time, it unclear why patient is having epigastric pain. Food and GI cocktail transiently improved the pain, alluding to possible duodenal ulcer. Lesser concern for pancreatitis given lipase, or mesenteric ischemia from SMA stenosis given normal lactic acid. ? Will treat with Protonix, sucralfate and monitor hemoglobin for now. Will consider GI on Tuesday consultation if symptoms do not improve. ? Will also consider cardiology consultation on Tuesday for further evaluation of SMA stenosis. ? Follow-up FOBT. ? IV Protonix 40 mg twice daily. Sucralfate with meals. #Suspected community-acquired pneumonia ? Patient endorses pain with inspiration, and some shortness of breath since yesterday. CTA negative for PE, but does show bibasilar opacities. ? IV ceftriaxone, doxycycline day 1. ? Follow-up sputum culture. #CAD with 3 stents #HFrEF 40% with AICD #Mitral valve regurgitation s/p repair #A-fib ? Continue aspirin, statin, Xarelto. ? Restart other home medications once reconciled. Full code DVT prophylaxis: Xarelto
[2024-09-08] MEDS: DOXYCYCLINE HYCLATE 100 MG in 0.9 % SODIUM CHLORIDE 250 ML 166.667 MG IV (18:41)
[2024-09-08] MEDS: HYDROCODONE/APAP 5/325 MG TABLET 2 TAB PO (18:59)
[2024-09-08 19:39] VITALS: BP 99/50; PULSE 77; RESP 16; TEMP 36.8; O2SAT 95
[2024-09-08 20:00] VITALS: PULSE 80
[2024-09-08 21:36] LABS: Microscopic, Urine URINE MICROSCOPIC (MICROSCOPIC)
[2024-09-08 21:41] LABS: Appearance,Urine Cloudy (Clear); Bilirubin,Urine Negative (Negative); Blood, Urine 4+ (Negative); Color,Urine B (Yellow); Glucose,Urine (UA) Negative (Negative); Ketones,Urine Negative (Negative); Leukocyte Esterase,Urine Negative (Negative); Nitrate,Urine Negative (Negative); PH,Urine 5.5 (5.0-8.5); Protein,Urine 1+ (Negative)
[2024-09-08] MEDS: SODIUM CHLORIDE 0.9% 10ML VIAL 10 ML IV (21:42)
[2024-09-08] MEDS: PANTOPRAZOLE 40MG VIAL 40 MG IV (21:42)
[2024-09-08 21:49] LABS: RBC,Urine TNTC #/hpf (0-3)
[2024-09-08] MEDS: SUCRALFATE 1GM TABLET 1 GM PO (21:51)
--- NOTE | 2024-09-08 23:04 | P.PN_ITS ---
<Statement entered by Kehinde Beal MD - 09/10/24 19:50> Personally evaluated patient and agree with plan of care as outlined by the [employer]. Subjective *Date: 09/09/24 *Time: 00:45 Interval history: Nurse notified me that patient was still having chest pain that was unresolved and having blood from penis. Evaluation of labs show that the patient did have +4 blood in the urine. Patient notes he sees to urologist as he receives testosterone from 1 and he sees another 1 due to his prostate. None of these notes are in our chart did not have a record of them. He states normally that he does not have blood in his urine. He has not taken testosterone for approximately 2 months Gastrointestinal issues, patient has significant hyperactive bowel sounds patient gave me a history that he has a lot of gas and at times diarrhea that he take OxyContin on a regular basis that makes him constipated. Also examination of the sternum at the distal end of the sternum is a bulge that is extremely tender to palpation. On examination of the chest CT appears that there is a split in the muscle at the bulb of the distal sternum, question whether or not this is some of the chest pain that the patient is having, Exam Data for Last 24 hours Vital signs and Labs for Last 24 Hours: Temp Pulse Resp BP Pulse Ox O2 Del Method O2 Flow Rate 98.2 F 80 16 99/50 L 95 Room Air 2 09/08/24 19:39 09/08/24 20:00 09/08/24 19:39 09/08/24 19:39 09/08/24 19:39 09/08/24 19:39 09/08/24 17:00 Laboratory Results - last 24 hr 09/08/24 15:25: WBC 7.8, RBC 3.80 L, Hgb 11.3 L, Hct 33.4 L, MCV 87.9, MCH 29.7, MCHC 33.8, RDW 14.9, Plt Count 130 L, MPV 11.5 H, Neut % (Auto) 84.0 H, Lymph % (Auto) 5.8 L, [place] % (Auto) 9.2, Eos % (Auto) 0.6, Baso % (Auto) 0.1, Neut # (Auto) 6.5, Lymph # (Auto) 0.5 L, [place] # (Auto) 0.7, Eos # (Auto) 0.1, Baso # (Auto) 0.0, D-Dimer 0.35, Sodium 135 L, Potassium 4.6, Chloride 104, Carbon Dioxide 26, Anion Gap 9.6, BUN 49 H, Creatinine 1.40 H, Estimated Creat Clear 47, Estimated GFR 49 L, Est GFR ( Amer) 59, Glucose 106 H, Hemoglobin A1c 5.1, Calcium 8.9, Total Bilirubin 0.7, AST 30, ALT 18, Alkaline Phosphatase 44, Troponin I 0.02, Total Protein 6.0 L, Albumin 3.7, Globulin 2.3, Albumin/Globulin Ratio 1.6, Triglycerides 53, Cholesterol 137 L, LDL Cholesterol Direct 68.18 L, VLDL Cholesterol 11, HDL Cholesterol 38 L, Cholesterol/HDL Ratio 3.6 H, Lipase 51, TSH 2.42 09/08/24 18:10: Urine Color B, Urine Appearance Cloudy, Urine pH 5.5, Ur Specific [place] 1.010, Urine Protein 1+ A, Urine Glucose (UA) Negative, Urine Ketones Negative, Urine Blood 4+ A, Urine Nitrate Negative, Urine Bilirubin Negative, Urine Urobilinogen 1.0, Ur Leukocyte Esterase Negative, Urine RBC Tntc, Urine WBC None, Ur Squamous Epith Cells None, Urine Bacteria None 09/08/24 19:18: Lactate 1.0 I & O for Last 24 hours: Intake & Output 09/06/24 09/07/24 09/08/24 09/09/24 05:59 05:59 05:59 05:59 Intake Total 400 / 400 Output Total 300 / 300 Balance 100 / 100 Weight 167 lb Radiology Reports for the Last 24 Hours: Enlarged bony bulb at distal end of sternum with possible tear to the muscular sure around the sternum, noting some pericardial infiltrate. With some posterior infiltrates in both lungs Constitutional Constitutional: mild distress Comments: Complaints of significant pain upon palpation of the distal sternum Routine Chest/Breast/Axilla Exam Chest wall: Present tenderness and mass Comments: No tenderness to the breast. But on examination of the sternum as moving to the very distal end you feel a very large bulge slightly turned out on certain palpation extreme amount of pain caused to do light palpation of the area. *Routine Respiratory Exam Respiratory: Present normal respiratory effort, able to speak in complete sentences and symmetric chest movement Comments: In no rough with respiratory difficult *Routine Cardiovascular Exam Cardiovascular: Present RRR, Normal S1 and Normal S2 Comments: No signs of any significant alterations in cardiac sounds. Brisk capillary refills to both distal extremities *Routine Abdominal Exam Abdominal: Present soft and obese Comments: Very hyperactive bowel sounds throughout entire abdomen *Routine Rectal Exam Comments: Test deferred, did not check for prostatitis *Routine Exam Patient deferred: penile exam Comments: Blood from the tip of penis plus for blood in urine sample *Routine Extremities Exam Comments: No abnormalities found *Routine Skin Exam Comments: Skin is pink warm and dry *Routine Neurological Exam Comments: Patient shows no significant neurological deficits no weakness on any side Routine Psychiatric Exam Psychiatric: Present normal affect, normal thought process, cooperative, good insight and good judgment Assessment and Plan *Assessment and plan (1) Hyperactive bowel sounds: Status: Acute Category: Medical Code(s): R19.12 - Hyperactive bowel sounds (2) Hematuria: Status: Acute Qualifiers: Hematuria type: gross Qualified Code(s): R31.0 - Gross hematuria Category: Medical Code(s): R31.9 - Hematuria, unspecified (3) Sternum pain: Status: Acute Category: Medical Code(s): R07.89 - Other chest pain (4) Chronic diarrhea: Status: Acute Category: Medical Code(s): K52.9 - Noninfective gastroenteritis and colitis, unspecified (5) Hemochromatosis: Status: Acute Qualifiers: Hemochromatosis type: unspecified Qualified Code(s): E83.119 - Hemochromatosis, unspecified Category: Medical Code(s): E83.119 - Hemochromatosis, unspecified Plan for the hyperactive bowel sounds and chronic diarrhea will do a C. difficile. Also checking for blood in stool Also will order a PSA for potential prostatitis. Will try Toradol 15 mg to see if chest pain improves. If so question whether this atypical chest pain the patient is having is actually sternal pain. Patient also gives a history of having to see a blood specialist due to hemochromatosis , stating they have had to drain his blood from time to time. 12:45 patient's blood pressure staying low while sleeping. Will give 1 L of normal saline at 250 an hour for 4-hour. Patient is sleeping well at this time
[2024-09-08] MEDS: KETOROLAC 30MG/ML VIAL 15 MG IV (23:21)
[2024-09-08] MEDS: PATIENT'S OWN HOME MEDICATION (Ranolazine 1,000 mg tablet extended release 12 hr) 1000 EACH PO (23:23)
[2024-09-08 23:53] VITALS: BP 84/40; PULSE 64; RESP 16; TEMP 36.8; O2SAT 96
[2024-09-09] VITALS (15 sets, daily range): BP systolic 76–128; BP diastolic 35–78; PULSE 60–138; RESP 16–18; TEMP 36.7–36.8; O2SAT 96–97; BMI 28.6
[2024-09-09] MEDS: 0.9 % SODIUM CHLORIDE 1000ML 1,000 ML 250 ML IV (00:56)
--- NOTE | 2024-09-09 04:05 | PC.NURSE ---
Pt. is alert and orientated x 4. Pt. is on oxygen 2 liters per NC. Pt. c/o chest pain. pain to bilateral upper chest and SOA. Pt. c/o pain with inspiration and feels like he can't take a deep breath with inspiration. Pt. had pain 9/10 was medicated with Hydrocodone. Pain was than 6/10. Pt. was mediacated with Toradol IV for chest apin and pain was 4/10. Pt. has been hypotensive. Pt. getting fluid bolus of one liter at 250 ml/hr. blood pressure has slighly improved. Per pt. he always has a low blood pressure. Pt. has remain alert and orientated with the low blood pressure. Pt. also has blood oozing from the penis. blood is bright red. blood noted in the urine. Kt Cox APRN aware. Vital signs slightly improved, personal items and call lin in reach.
[2024-09-09] MEDS: DOXYCYCLINE HYCLATE 100 MG in 0.9 % SODIUM CHLORIDE 250 ML 166.667 MG IV (05:07)
[2024-09-09] MEDS: SUCRALFATE 1GM TABLET 1 GM PO ×2 (06:12→12:08)
[2024-09-09 07:41] LABS: Basophils % 0.3 % (0.1-2.0); Eosinophils # 0.1 K/mm3 (0.0-0.4); Eosinophils % 1.6 % (0.1-12.0); Hematocrit 34.6 % (42.0-52.0); Hemoglobin 11.1 g/dL (14.1-18.0); Lymphocytes # 0.4 K/mm3 (0.7-4.5); Lymphocytes % 6.6 % (10-50); Mean Corpuscular HGB Conc 32.1 g/dL (31.8-35.4); Mean Corpuscular Hemoglobin 28.9 pg (27.0-31.2); Mean Corpuscular Volume 90.1 fl (80-94); Mean Platelet Volume 11.1 fl (7.4-10.4); Monocytes # 0.7 K/mm3 (0.1-1.0); Monocytes % 12.5 % (1.7-9.3); Neutrophils # 4.5 K/mm3 (1.8-7.8); Neutrophils % 78.7 % (37.0-80.0); Platelet Count 83 K/mm3 (142-424); Red Blood Count 3.84 M/mm3 (4.60-6.20); White Blood Count 5.8 K/mm3 (4.8-10.8)
[2024-09-09 08:00] LABS: Albumin Level 3.4 g/dl (3.5-5.0); Chloride 105 mmol/L (98-107); INR 1.16 (0.9-1.1); Potassium 4.2 mmoL/L (3.5-5.1); Prothrombin Time 12.8 seconds (10.1-12.5); Sodium 136 mmol/L (136-145)
[2024-09-09 08:03] LABS: Alanine Aminotransferase 15 U/L (12-78); Albumin/Globulin Ratio 1.5 (1.1-1.8); Alkaline Phosphatase 53 U/L (38-126); Aspartate Amino Transferase 20 U/L (17-59); Bilirubin,Total 0.8 mg/dl (0.2-1.3); Calcium 8.3 mg/dl (8.4-10.2); Globulin 2.2 g/dL (1.3-3.2); Glucose 96 mg/dl (74-100); Magnesium 1.7 mg/dl (1.6-2.3); Total Protein,Serum 5.6 g/dl (6.3-8.2)
[2024-09-09 08:51] LABS: Anion Gap 12.2 mEq/L (5-15); Blood Urea Nitrogen 44 mg/dl (9-20); Carbon Dioxide 23 mmol/L (22.0-30.0); Creatinine Clearance Estimated 45 mL/min (50-200); Estimated Glomerular Filt Rate 45 ml/min (>60); GFR (African American) 55 ML/MIN (>60)
[2024-09-09 09:23] LABS: Prostate Specific Ag Screen 1.4 ng/ml (0.0-4.0)
[2024-09-09] MEDS: SODIUM CHLORIDE 0.9% 10ML VIAL 10 ML IV (09:48)
[2024-09-09] MEDS: PANTOPRAZOLE 40MG VIAL 40 MG IV (09:48)
[2024-09-09] MEDS: TAMSULOSIN 0.4MG CAPSULE 0.4 MG PO (09:48)
[2024-09-09] MEDS: CEFTRIAXONE 1 GM 1 GM in 0.9 % SODIUM CHLORIDE 50 ML IV (09:48)
--- NOTE | 2024-09-09 10:30 | HMH.PHAINT1 ---
Pharmacy Intervention Comments: MEDICATION RECONCILIATION COMPLETE USING LIST FROM RECENT CARDIOLOGY OFFICE VISIT, EXTERNAL PHARMACY FILL HISTORY, AND PATIENT INTERVIEW.
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
--- NOTE | 2024-09-10 11:31 | SW/DCPLANNER ---
Spoke with patients on the phone. Patient's stated that he is doing well. Patients stated that she is calling to schedule his upcoming appointments today. Patients stated that she just got the call where they just recieved his prescription from the pharmacy and she is going to give them time to fill it and go and pick it up. Patient's stated that they have no concerns or questions at this time. Josie Dick
== END 2024-09-09 13:09 | disposition home or self-care (01) ==
PROVIDERS: Nurse Practitioner Family; Admitting Provider Student in an Organized Health Care Education/Training Program; PCP Family Medicine; Visit Provider Student in an Organized Health Care Education/Training Program
DX: R10.13 Epigastric pain (principal); I11.0 Hypertensive heart disease with heart failure; I50.22 Chronic systolic (congestive) heart failure; R31.0 Gross hematuria; E83.119 Hemochromatosis, unspecified; G47.33 Obstructive sleep apnea (adult) (pediatric); I25.2 Old myocardial infarction; G25.81 Restless legs syndrome; K21.9 Gastro-esophageal reflux disease without esophagitis; I27.20 Pulmonary hypertension, unspecified; E78.5 Hyperlipidemia, unspecified; I25.119 Atherosclerotic heart disease of native coronary artery with unspecified angina pectoris; I48.0 Paroxysmal atrial fibrillation; R07.89 Other chest pain; M24.49 Recurrent dislocation, other specified joint; K52.9 Noninfective gastroenteritis and colitis, unspecified; Z82.49 Family history of ischemic heart disease and other diseases of the circulatory system; Z83.438 Family history of other disorder of lipoprotein metabolism and other lipidemia; Z79.01 Long term (current) use of anticoagulants; Z79.891 Long term (current) use of opiate analgesic; Z79.899 Other long term (current) drug therapy; Z88.4 Allergy status to anesthetic agent; Z88.8 Allergy status to other drugs, medicaments and biological substances; Z90.49 Acquired absence of other specified parts of digestive tract; Z95.810 Presence of automatic (implantable) cardiac defibrillator; Z95.5 Presence of coronary angioplasty implant and graft
CPT/HCPCS: G0379; 36415; 71275; 74174; 80053; 80061; 81001; 83036; 83605; 83690; 83735; 84443; 84484; 85025; 85378; 85610; 87040; G0103; G0378; J0696; J1885; J7030; Q9967

== ENCOUNTER 2024-09-12 02:39 | Inpatient (IN) | payer MEDICARE, SELFPAY ==
[2024-09-12] VITALS (37 sets, daily range): BP systolic 84–115; BP diastolic 45–67; PULSE 55–62; RESP 11–23; TEMP 36.4–36.7; O2SAT 93–99; BMI 27.4; BMI 27.5
[2024-09-12] MEDS: AMIODARONE 900 MG/18 ML IV (02:45)
[2024-09-12] MEDS: ESMOLOL HCL IN STERILE WATER 2,500 MG/250 ML PIGGYBACK 22.47 MG IV ×2 (02:45→09:10)
--- NOTE | 2024-09-12 03:06 | PC.NURSE ---
Patient arrived to ICU unit @02:44 via [facility].
[2024-09-12] MEDS: HYDROMORPHONE 2MG/ML SYRINGE 1 MG IV (03:56)
[2024-09-12] MEDS: DEXTROSE IV (05:00)
[2024-09-12] MEDS: LIDOCAINE HCL IV (05:00)
[2024-09-12] MEDS: AMIODARONE HCL 900 MG in DEXTROSE 5 % IN WATER 500 ML 17.27 MG IV (05:00)
[2024-09-12 05:41] LABS: Albumin Level 3.3 g/dl (3.5-5.0); Chloride 108 mmol/L (98-107); Potassium 4.2 mmoL/L (3.5-5.1); Sodium 136 mmol/L (136-145)
[2024-09-12 05:43] LABS: Blood Urea Nitrogen 43 mg/dl (9-20)
[2024-09-12 05:44] LABS: Microscopic, Urine URINE MICROSCOPIC (MICROSCOPIC)
[2024-09-12 05:44] LABS: Alanine Aminotransferase 20 U/L (12-78); Albumin/Globulin Ratio 1.4 (1.1-1.8); Alkaline Phosphatase 47 U/L (38-126); Anion Gap 10.2 mEq/L (5-15); Aspartate Amino Transferase 47 U/L (17-59); Bilirubin,Total 0.4 mg/dl (0.2-1.3); Calcium 8.4 mg/dl (8.4-10.2); Carbon Dioxide 22 mmol/L (22.0-30.0); Creatinine Clearance Estimated 44 mL/min (50-200); Estimated Glomerular Filt Rate 45 ml/min (>60); GFR (African American) 55 ML/MIN (>60); Globulin 2.3 g/dL (1.3-3.2); Glucose 99 mg/dl (74-100); Magnesium 2.8 mg/dl (1.6-2.3); Phosphorous 4.8 mg/dl (2.5-4.5); Total Protein,Serum 5.6 g/dl (6.3-8.2)
[2024-09-12 05:45] LABS: Basophils % 0.2 % (0.1-2.0); Eosinophils # 0.2 K/mm3 (0.0-0.4); Eosinophils % 3.2 % (0.1-12.0); Hematocrit 28.9 % (42.0-52.0); Hemoglobin 9.5 g/dL (14.1-18.0); Lymphocytes # 0.4 K/mm3 (0.7-4.5); Lymphocytes % 7.4 % (10-50); Mean Corpuscular HGB Conc 32.9 g/dL (31.8-35.4); Mean Corpuscular Hemoglobin 29.5 pg (27.0-31.2); Mean Corpuscular Volume 89.8 fl (80-94); Mean Platelet Volume 11.3 fl (7.4-10.4); Monocytes # 0.6 K/mm3 (0.1-1.0); Monocytes % 11.1 % (1.7-9.3); Neutrophils # 4.2 K/mm3 (1.8-7.8); Neutrophils % 77.7 % (37.0-80.0); Platelet Count 115 K/mm3 (142-424); Red Blood Count 3.22 M/mm3 (4.60-6.20); Red Cell Distribution Width 14.7 % (11.5-17.5); White Blood Count 5.4 K/mm3 (4.8-10.8)
--- NOTE | 2024-09-12 06:09 | P.HP_ITS ---
<Statement entered by Denys Decker MD - 09/12/24 22:08> Rounded on patient after nurse practitioner. Personally examined and interviewed patient. Agree with exam findings and care plan as documented. Patient received approximately 30 shocks from his pacer/AICD. Showing improvement on esmolol, lidocaine, amiodarone. Cardiology evaluating today. Plan for left heart cath. Troponin elevated to 5 and subsequent level of 6. Chest still sore. Also having some neck pain and headache from his falls subsequent to his shocks. Will obtain CT head and neck to evaluate for trauma. Repeat CBC, CMP, magnesium ordered for the morning. Will transition to oral amiodarone after bolus finishes. History of Present Illness *Admission Date: 09/12/24 *Reason for visit:: Ventricular fib implanted AED going off constantly *History of present illness: Mr. Bello 78-year-old long history of cardiac with an implanted AED. He knows Dr. Fish very well. As his history is significant for CAD with 3 stents with a decreased ejection fraction. Patient had his AED going off quite often to the point and knocked him to the ground.. He was able to get to the [facility] where he was started on amiodarone and lidocaine and he became in better control. Esmolol was also added. Dr. Fish was contacted by me he feels ER physician and transport was arranged and he was placed in our ICU. Since arriving the patient's heart rate has been pacer to at 60 no signs of a Flowers C other vital signs within normal limits. Amiodarone has been decreased lately and lidocaine has been decreased to 1 mg. Will have patient seen by Dr. Fish this a.m. [facility] Disclaimer: The information contained in this section may have been updated after the patient was seen, as this information can be updated by other users. Medical History Hemochromatosis History of heart attack HFrEF (heart failure with reduced ejection fraction) Paroxysmal atrial fibrillation Right lower lobe pneumonia Shortness of Breath GERD (gastroesophageal reflux disease) RLS (restless legs syndrome) GERMAN (obstructive sleep apnea) Fibromyalgia Arthritis Afib HTN (hypertension) CAD (coronary artery disease) Pulmonary HTN Displacement of cardiac pulse generator (battery), initial encounter Elevated left ventricular end-diastolic pressure (LVEDP) Crescendo angina Cardiomyopathy Near syncope Dizziness (mitral regurgitation) Blockage of coronary artery of heart Pericarditis Failure of generator of implanted defibrillator Systolic heart failure pen[facility] (current) use of anticoagulants Chronic systolic heart failure Hyperlipemia Surgical History History of carpal tunnel release History of cardiac cath History of cholecystectomy AICD (automatic cardioverter/defibrillator) present Family History Other Heart attack Hyperlipidemia Hypertension Social History Smoking Status: Never smoker second hand exposure: No alcohol intake: never substance use type: denies use current occupational status: retired Travel in the last 8 weeks: None household members: spouse housing: house current occupational exposures/hazards: No caffeine: Yes Other Medical History Have you received the Flu Vaccine for this season: No Have you received the Pneumonia Vaccine: No Review of Systems Review of Systems Review of systems:: pertinent systems reviewed and negative unless documented below Constitutional Constitutional: Reports as per HPI Eyes Eyes: Reports as per HPI ENT Ears, Nose, Mouth, and Throat: Reports as per HPI *Cardiovascular Cardiovascular: Reports as per HPI and Reports chest pain Comments: Patient reports entire chest and basically right side of body is extremely sore from the AED going off causing him to hit the edge of a piece of furniture at the house. *Respiratory Respiratory: Reports as per HPI *Gastrointestinal Gastrointestinal: Reports as per HPI *Genitourinary Genitourinary: Reports as per HPI *Musculoskeletal Musculoskeletal: Reports back pain and Reports myalgias Comments: Body ache from excessive AED firing. Integumentary/Breasts Skin/Breast: Reports as per HPI Comments: Right foot very sore top of it has 2 superficial skin abrasions with some dried blood *Neurologic Neurologic: Reports as per HPI Comments: Patient is a little bit somnolent from the medications he has received, he is on normally MS Contin on a regular basis but on top of this his other pain has been receiving narcotics. Patient is awake and alert and can give a history but is slightly blunted from the medications in the event he has been through Psychiatric Psychiatric: Reports as per HPI Endocrine Endocrine: Reports as per HPI Hematologic/Lymphatic Hematologic/Lymphatic: Reports as per HPI Allergic/Immunologic Allergic/Immunologic: Reports as per HPI Meds Home Medications and Allergies Home Medications ?Medication ?Instructions ?Recorded ?Confirmed ?Type ropinirole 3 mg tablet 3 mg PO HS 10/16/18 09/09/24 History promethazine 25 mg tablet 25 mg PO TIDP PRN Nausea 04/17/19 09/09/24 History oxycodone 10 mg tablet 10 mg PO Q12HP PRN Moderate Pain 08/14/19 09/09/24 History trazodone 100 mg tablet 100 mg PO HS 02/05/21 09/09/24 History ranolazine 1,000 mg 1,000 mg PO BID 03/24/21 09/09/24 History tablet,extended release,12 hr sacubitril 97 mg-valsartan 103 mg 1 tab PO BID 12/31/22 09/09/24 History tablet (Entresto) allopurinol 300 mg tablet 300 mg PO DAILY 01/12/23 09/09/24 History baclofen 10 mg tablet 10 mg PO BIDP PRN Muscle Spasm 07/04/23 09/09/24 History pregabalin 75 mg capsule 75 mg PO DAILY 07/04/23 09/09/24 History carvedilol 25 mg tablet 25 mg PO BIDWMEAL 10/12/23 09/09/24 History nitroglycerin 0.4 mg sublingual 0.4 mg sublingual Q5MINP PRN Chest 10/12/23 09/09/24 History tablet Pain rivaroxaban 20 mg tablet (Xarelto) 20 mg PO QPMWITHMEAL 10/12/23 09/09/24 History torsemide 20 mg tablet 20 mg PO DAILY PRN edema #30 tabs 01/04/24 09/09/24 Rx levofloxacin 750 mg tablet 750 mg PO DAILY 4 days #4 tabs 09/09/24 Rx omeprazole 40 mg capsule,delayed 40 mg PO DAILY 09/09/24 09/09/24 History release sucralfate 1 gram tablet 1 g PO BID PRN Upper abdominal 09/09/24 Rx pain 30 days #60 tabs tadalafil 5 mg tablet 5 mg PO DAILY 09/09/24 09/09/24 History tizanidine 4 mg tablet 8 mg (2 x 4 mg) PO HS PRN Spasms 09/09/24 09/09/24 Rx 30 days #0 tabs New Prescriptions to Start Prescriptions: Allergies Allergy/AdvReac Type Severity Reaction Status Date / Time procaine Allergy Unknown Unknown Verified 08/23/24 11:02 allergy reaction empagliflozin (From AdvReac Mild itching Verified 08/23/24 11:02 Jardiance) rosuvastatin AdvReac muscle pain Verified 08/23/24 11:02 Exam Data for Last 24 hours Vital signs and Labs for Last 24 Hours: Temp Pulse Resp BP Pulse Ox O2 Del Method 97.6 F 60 14 92/45 L 97 Room Air 09/12/24 04:00 09/12/24 04:00 09/12/24 04:00 09/12/24 04:00 09/12/24 04:00 09/12/24 05:00 Laboratory Results - last 24 hr 09/12/24 04:58: Sodium 136, Potassium 4.2, Chloride 108 H, Carbon Dioxide 22, Anion Gap 10.2, BUN 43 H, Creatinine 1.50 H, Estimated Creat Clear 44, Estimated GFR 45 L, Est GFR ( Amer) 55 L, Glucose 99, Calcium 8.4, Phosphorus 4.8 H , Magnesium 2.8 H D, Total Bilirubin 0.4, AST 47 D, ALT 20 D, Alkaline Phosphatase 47, Total Protein 5.6 L, Albumin 3.3 L, Globulin 2.3, Albumin/Globulin Ratio 1.4 I & O for Last 24 hours: Intake & Output 09/10/24 09/11/24 09/12/24 09/13/24 05:59 05:59 05:59 05:59 Output Total 375 / 375 Balance -375 / -375 Weight 165 lb 1.596 oz Constitutional Constitutional: mild distress, cooperative and somnolent Comments: Patient is quite uncomfortable from muscle injury related to the AED firing and also hitting pieces of furniture when he twitched *Routine HEENT Exam Head: Present normocephalic and atraumatic Eye: Present EOMI, PERRL and normal accommodation ENT: Present mucous membranes moist *Routine Neck Exam Neck: Present supple and tenderness (Generalized tenderness especially to the back of the neck) Routine Chest/Breast/Axilla Exam Chest wall: Present tenderness (Tenderness through chest wall) *Routine Respiratory Exam Respiratory: Present CTA bilaterally, normal respiratory effort, able to speak in complete sentences and symmetric chest movement *Routine Cardiovascular Exam Cardiovascular: Present RRR, Normal S1 and Normal S2 Comments: Patient's rate is 60 can see the pacer firing no abnormal beat *Routine Abdominal Exam Abdominal: Present soft *Routine Rectal Exam Rectal:: deferred *Routine Genitalia Exam Genitalia:: deferred *Routine Extremities Exam Extremities: Present normal capillary refill and tenderness Comments: Whole right foot is tender there is a skin abrasion 2 of them on the top of the foot Routine Back/Spine/Pelvis Exam Back/Spine: Present full ROM, CVA tenderness and paraspinal tenderness Comments: Generalized tenderness over the whole back *Routine Skin Exam Skin: Present intact Comments: 2 skin abrasions to top of right foot *Routine Neurological Exam Neurological: Present alert, oriented X3, CN II-XII intact, normal reflexes, normal tone, vision grossly intact and hearing grossly intact Routine Psychiatric Exam Psychiatric: Present normal affect and cooperative Comments: Patient blunted slightly from narcotic/pain medicines that have been given in the event H&P: Result Impressions 1. Long history of cardiac disease, today sinus tach/ventricular fib causing a ED to fire multiple times sometimes about every 15 seconds for a period of time per the patient's description Assessment and Plan *Assessment and plan (1) LEXII (acute kidney injury): Status: Acute Category: Medical Code(s): N17.9 - Acute kidney failure, unspecified (2) Coronary arteriosclerosis: Status: Chronic Category: Medical Code(s): I25.10 - Atherosclerotic heart disease of [place] coronary artery without angina pectoris (3) Ventricular fibrillation: Status: Acute Category: Medical Code(s): I49.01 - Ventricular fibrillation (4) CHB (complete heart block): Status: Acute Category: Medical Code(s): I44.2 - Atrioventricular block, complete (5) Pacemaker complications: Status: Acute Qualifiers: Encounter type: initial encounter Qualified Code(s): T82.9XXA - Unspecified complication of cardiac and vascular prosthetic device, implant and graft, initial encounter Category: Medical Code(s): T82.9XXA - Unspecified complication of cardiac and vascular prosthetic device, implant and graft, initial encounter (6) Disorder of implanted defibrillator generator: Status: Acute Qualifiers: Encounter type: initial encounter Qualified Code(s): T82.9XXA - Unspecified complication of cardiac and vascular prosthetic device, implant and graft, initial encounter Category: Medical Code(s): T82.9XXA - Unspecified complication of cardiac and vascular prosthetic device, implant and graft, initial encounter Plan 1. Patient was transferred and accepted into our ICU. Has been placed upon the monitor. Given IV pain medication due to the muscle pain and joint pain and foot pain from the AED going off. Patient has done well all night. Slowly have decreased amiodarone and lidocaine. Awaiting for cardiology consult this a.m.
[2024-09-12 06:28] LABS: Appearance,Urine CLEAR (Clear); Bilirubin,Urine Negative (Negative); Blood, Urine Negative (Negative); Color,Urine YELLOW (Yellow); Glucose,Urine (UA) Negative (Negative); Ketones,Urine Negative (Negative); Leukocyte Esterase,Urine Negative (Negative); Nitrate,Urine Negative (Negative); PH,Urine 5.5 (5.0-8.5); Protein,Urine Negative (Negative); Specific Gravity, Urine 1.025 (1.005-1.030); Urobilinogen,Urine 0.2 EU/dl (0.2)
[2024-09-12 07:44] LABS: POC Glucose,Bedside 121 (70-110)
[2024-09-12 08:47] LABS: Troponin I 6.18 ng/ml (0.00-0.034)
[2024-09-12 09:16] LABS: Bacteria,Urine Trace /lpf
--- NOTE | 2024-09-12 09:16 | IR_ITS ---
APPROVED REPORT Patient Location: Inpatient Drafter Patent: KAM Feliz RT (R) PROCEDURES Selective coronary angiogram INDICATION Elevated troponin, Ventricular tachycardia, Ischemic heart disease, Patient shocked with defibrillator 31 times in 12 hours Informed consent was obtained prior to the procedure. COMPLICATIONS NONE Estimated Blood Loss: LESS THAN 10 ML TECHNIQUE One percent lidocaine used to anesthetize the right anterior aspect of the wrist. The right radial artery was accessed via the Seldinger technique. A 6 Lao sheath was placed in the right radial artery. 2.5 mg of Verapamil, 800 mcg of nitroglycerin, 1mg Lidocaine and 5000 U Heparin were given through the arterial sheath. The 6 Lao JL 3 guide catheter selective coronary angiogram. At the end of the procedure the sheath was removed good hemostasis was achieved using Traclet band, patient was transferred to the postop holding area in stable condition. ANGIOGRAPHIC RESULTS The left main artery Has mild ostial 10% concentric stenosis The left anterior descending artery Has stents in the proximal to mid segment which are widely patent free of in-stent restenosis with excellent proximal distal transitioning. Distal to the stent there is a 20% stenosis with additional 40% mid LAD stenoses. A large bifurcating first diagonal artery has a stent originating from the proximal LAD which is also widely patent with excellent distal transitioning. The remaining diagonal artery has a mid vessel 40% stenosis. A large septal dirt bike mechanic collateralizes the distal dominant right coronary The circumflex artery Is nondominant and has a proximal 60 to 70% stenosis The right coronary artery Dominant ostially occluded and fills via a rich [id number] collateralization The PASTRANA ventriculogram reveals Not performed The left ventricular end-diastolic pressure Not measured IMPRESSION Coronary disease as described above which appear stable Disease in the proximal nondominant circumflex artery which is unlikely contributing to the sudden onset A-fib with rapid ventricular response PLAN 1. Continue amiodarone drip and esmolol 2. Discontinue lidocaine drip given the rhythm was atrial fibrillation with rapid ventricular response rather than ventricular tachycardia 3. Because of the rapid ventricular response and critical nature of patient's arrhythmia I believe the ablation should be performed during this admission. Patient will be transferred to [facility] tomorrow for inpatient A-fib ablation 4. Lovenox twice daily 1 mg/kg SQ 5. Hold Xarelto 6. It is unlikely the proximal circumflex artery stenosis was the etiology for the atrial fibrillation. At this time I do not believe it is appropriate to stent this vessel. This can be addressed after the A-fib ablation. If it is believed this is ischemic and contributing to the atrial fibrillation this can be addressed for possible percutaneous revascularization following the ablation. Electronically signed by : Dell Fish MD 09/12/2024 15:33:14
--- NOTE | 2024-09-12 09:21 | PC.NURSE ---
ASSESSED PTS DRIPS, PTS CURRENT INFUSING DRIPS. ESMOLOL FOUND TO BE GOING AT 50MCG/KG/MIN WITH A WX OF 112KG. CHECKED PTS CHART, FOUND A WX OF 75K, PUMP DOSING CHANGE AT THIS TIME. PT TOLERATING DRIPS WELL.
--- NOTE | 2024-09-12 09:29 | CA_ITS ---
APPROVED REPORT EXAM: Comprehensive 2D, Doppler, and color-flow Echocardiogram Pediatric Surgeon: Brittanie De Guzman RT(R) Ht: 5 ft 5 in Wt: 165lbs BSA: 1.82 BP: 107/61 mmHg Indications: vtach, HTN, hyperlipidemia, CAD, EF 40% on echo 05/31/24, AED firing yesterday multiple times, hx HI, GERMAN, pul HTN, hx CM, severe MR, recent MV ring. 2D Dimensions LA Volume 60.90 mL LA Volume Index 33.46 mL/m2 (M/F) 16-34 EF AP4 31.70 % GL Strain -4.8 % M-Mode Dimensions RVDd 3.26 cm (0.9-2.6) LA Diam 5.25 cm (1.9-4.0) LVDd 4.86 cm (3.5-5.7) LVDs 3.97 cm (3.5-5.7) IVSd 0.85 cm (0.6-1.1) PWd 0.58 cm (0.6-1.1) EF (Teich) 37.90% FS 18.30% EDV (Teich) 110.70 mL ESV (Teich) 68.80 mL LV Diastology E Decel Time 360 (160-240 msec) E/A Ratio 2.12 Aortic Valve AO VTI 41.4 (18-25 cm) Mitral Valve MV A Velocity 75.0 (40-130 cm/s) E/A Ratio 2.12 MV PHT 93.0 ms Tricuspid Valve TR P. Velocity 295.00 cm/s RAP Estimate 10.00 mmHg RVSP 44.70 mmHg Left Ventricle The left ventricle is normal size. Left ventricular systolic function is moderately decreased. There is increased LV wall thickness. There is moderate global hypokinesis present. Septal and inferior septal LV olivares are akinetic. Diastolic function is indeterminate. LVEF is 30-35%. Right Ventricle The right ventricle is mildly dilated. Right ventricle is mildly hypokinetic. There is a device lead in the right ventricle. Atria Left atrium is moderately dilated. Right atrium is moderately dilated. s/p iatrogenic ASD at the time of MitraClip procedure. Color Doppler demonstrates presence of left to right interatrial shunt. Aortic Valve Aortic valve is mildly thickened. There is no aortic valvular stenosis. Trace aortic regurgitation. Mitral Valve s/p MitraClip procedure. The clip is well-positioned. Mean MV gradient 2 mmHg (60 bpm). Peak E velocity 159 cm/s. Deceleration time 360 ms. Moderate mitral regurgitation is present. Tricuspid Valve Tricuspid valve is grossly normal in structure and function. Mild tricuspid regurgitation. RVSP is 30-35 mmHg. Pulmonic Valve The pulmonary valve is normal in structure. Trace pulmonic regurgitation. Great Vessels The aortic root is normal in size. IVC is normal in size and collapses >50% with inspiration. Pericardium There is a small sized, circumferential pericardial effusion present. The largest pocket is noted posteriorly and measures 0.9 cm in diastole. The anterior pocket is trivial in size. No echo indications of tamponade. Other Information Study Quality: Fair Conclusion Moderate reduction in global LV systolic function (LVEF 30-35%). Severe hypokinesis of the septal and inferior septal LV olivares. Mild RV dilation for reduction in RV function. Biatrial dilation. s/p MitraClip. Moderate MR. No evidence of MS (mean MV gradient 2 mmHg at HR 60 bpm). Mild TR. s/p iatrogenic ASD at the time of MitraClip procedure. Color Doppler demonstrates presence of left to right interatrial shunt. Small sized, circumferential pericardial effusion present. The largest pocket is noted posteriorly and measures 0.9 cm in diastole. The anterior pocket is trivial in size. No echo indications of tamponade. Electronically signed by : Priscilla Griffin MD 09/12/2024 14:27:16
--- NOTE | 2024-09-12 09:32 | ECG_ITS ---
APPROVED REPORT Exam: Resting ECG HR:60 bpm ECG Measurements Heart Rate 60 AXES NE 239 P 170 QRSd 126 QRS 67 QT 463 T 196 QTc 463 Conclusion ELECTRONIC ATRIAL PACEMAKER MODERATE INTRAVENTRICULAR CONDUCTION DELAY [110+ ms QRS DURATION] MODERATE T-WAVE ABNORMALITY, CONSIDER LATERAL ISCHEMIA [-0.1+ mV T-WAVE IN I/aVL/V5/V6] ABNORMAL ECG UNCONFIRMED REPORT Electronically signed by : Mayank Ozuna MD 09/14/2024 08:52:33
--- NOTE | 2024-09-12 09:46 | HMH.PHAINT1 ---
Pharmacy Intervention Comments: HOME MEDICATION LIST VERIFIED USING LIST FROM PREVIOUS DISCHARGE ON 09/09/24
--- NOTE | 2024-09-12 09:56 | HMH.PTEV ---
Physical Therapy Evaluation Rehab PT IP Evaluation Start: 09/12/24 07:16 Freq: ONCE Status: Active Protocol: Document 09/12/24 09:51 PHORJAMAR (Rec: 09/12/24 09:54 PHORNE [id number]) Subjective/History History History 78-year-old long history of cardiac with an implanted AED. He knows Dr. Fish very well. As his history is significant for CAD with 3 stents with a decreased ejection fraction. Patient had his AED going off quite often to the point and knocked him to the ground.. He was able to get to the [facility] where he was started on amiodarone and lidocaine and he became in better control. Esmolol was also added. Dr. Fish was contacted by me he feels ER physician and transport was arranged and he was placed in our ICU. Pt reports he lives with his , 2 [address] the home, and he is generally independent with all mobility without AD at baseline. Subjective Subjective Pt reports feeling very sore after fall preceding his adm. He reports pain is 8/10 at this time. [facility] staff notified and they are already aware. He does agree to mobility assessment this am. [facility] How much help from another person do you currently need... Turning from your back to your side None while in a flat bed without using bedrails? Moving from lying on back to sitting on None the side of a flat bed without using bedrails? Moving to and from a bed to a chair ( None including a wheelchair)? Standing up from a chair using your arms None ? (e.g., wheelchair, bedside chair) Walking in hospital room? None Climbing 3-5 steps with a railing? A little Mobility Score 23 Mobility Level [place] Mobility Calculator Mobility 7 Walk 25 feet or more Rehab PT IP Eval Objective Appearance Patient Behavior Appropriate Patient Orientation Person,Place,Time Difficulty following instructions none Speech Pattern Clear Ambulation Patient Able to Ambulate Yes Ambulation Observation IP General Gait Pattern Observation No Deviations/Normal Ambulation Distance (feet) 8 Ambulation Assistive Device None Ambulation Ability Independent Balance Ability to Arise Able, uses arms to help Sitting Balance Steady, safe Standing Balance Steady, wide stance Dynamic Sitting Balance Ability Good Dynamic Standing Balance Ability Fair Transfers Bed Transfer Ability Independent Chair Transfer Ability Independent Sit to Stand Bed Transfer Ability Independent Sit to Stand Chair Transfer Ability Independent Rehab PT IP prob,goals,plan Problems Date of Evaluation: 09/12/24 PT IP Problems Transfers,Gait Rehab Potential Rehab Potential Good Plan PT Intervention Plan Transfers,Gait,Therapeutic Exercise PT Plan Frequency Daily Duration LOS Discharge Goals Sit to Stand Chair Transfer Ability Independent Ambulation Assistive Device None Ambulation Distance (feet) 50 Discharge Plan PT Discharge Plan Pt is currently appropriate to return home once medically stable for d/c. Skilled acute rehab services are indicated to improve ambulation ability in order to return pt to [facility]. Eval Complexity Eval Charge Codes 03683 - High Complexity PHYSICIAN CERTIFICATION: I certify the specified therapy services for Chino Bello are required, authorized, and reviewed every 30 days.
--- NOTE | 2024-09-12 11:30 | PC.NURSE ---
pt complaining of neck pain currently rating 7/10 at this time that worsens with movement. This nurse reviewed pt chart from [facility] and noticed there wasnt any imaging noted in the chart except a chest xray. provider notified and ordered neck CT without. RAD notified of new order.
[2024-09-12] MEDS: OXYCODONE 5MG IMMEDIATE RELEASE TABLET 10 MG PO (11:31)
--- NOTE | 2024-09-12 11:36 | CT_ITS ---
FINAL REPORT TECHNIQUE: Thin section axial CT images with coronal and sagittal reformats were performed through the neck. This study was performed with techniques to keep radiation doses as low as reasonably achievable (ALARA). Individualized dose reduction techniques using automated exposure control or adjustment of mA and/or kV according to the patient''s size were employed. CLINICAL HISTORY: neck pain FINDINGS: Exam is limited without intravenous contrast. Paranasal sinuses are clear. Salivary glands are normal. There is no adenopathy. Thyroid is normal. Larynx is unremarkable. There is no obvious abscess. There are tiny bilateral pleural effusions noted. IMPRESSION: Grossly unremarkable exam. Reviewed, Interpreted and Dictated by Rex Ames MD Transcribed by Roma Wray Authenticated and [facility]
--- NOTE | 2024-09-12 12:11 | CT_ITS ---
FINAL REPORT TECHNIQUE: Noncontrast exam This study was performed with techniques to keep radiation doses as low as reasonably achievable, (ALARA). Individualized dose reduction techniques using automated exposure control or adjustment of mA and/or kV according to the patient''s size were employed. CLINICAL HISTORY: headache after fall, on anticoag COMPARISON: 10/11/2023 FINDINGS: No abnormal density is seen. Ventricles are normal. There is no hemorrhage. No mass effect is seen. Bone windows show no evidence of fracture. IMPRESSION: No acute findings Reviewed, Interpreted and Dictated by Rex Ames MD Transcribed by Roma Wray Authenticated and . [facility]
--- NOTE | 2024-09-12 12:19 | EXP.CARD.CON ---
History of Present Illness History of Present Illness Consult date: 09/12/24 Requesting physician: Denys Decker Consult reason: chest pain Chief complaint: ICD shock History of present illness: 78-year-old white male well-established patient of our office with a history of CAD status post stenting in 2018, HFrEF status post BiV ICD, paroxysmal atrial fibrillation, mild MR status post transcatheter [id number] mitral valve repair, SHANTELL, with mitral clip August 16, 2024. Patient states he has been feeling well recently and was able to work for 8 hours in his garage yesterday. Last night while taking out the trash developed chest discomfort so he came inside and took 2 nitroglycerin which were not of any help. States he was in the bathroom getting ready for a shower and felt his ICD discharge. It continued to shock him numerous more times so he presented to the nearest emergency room which was in [place]. They called Dr. Fish who recommended transfer to our facility. Patient had ICD discharge 2 more times in ambulance on the way here. He was started on lidocaine, amiodarone, esmolol and has had no further VT or V-fib since arrival here. Device interrogation today indicates a total of 31 shocks for A-fib RVR in VT/VF zones. He is currently in stable condition, alert and oriented, denies chest pain, in relatively good spirits, telling hunting stories and showing pictures on his phone. Troponin is of course elevated at 5.6 and 6.1. He has mild anemia with hemoglobin of 9.5, otherwise labs largely unremarkable. TSH on 09/08 was 2.4. EKG today shows SR withou ST elevations or VT. [facility] Disclaimer: The information contained in this section may have been updated after the patient was seen, as this information can be updated by other users. Medical History Hemochromatosis History of heart attack HFrEF (heart failure with reduced ejection fraction) Paroxysmal atrial fibrillation Right lower lobe pneumonia Shortness of Breath GERD (gastroesophageal reflux disease) RLS (restless legs syndrome) GERMAN (obstructive sleep apnea) Fibromyalgia Arthritis Afib HTN (hypertension) CAD (coronary artery disease) Pulmonary HTN Displacement of cardiac pulse generator (battery), initial encounter Elevated left ventricular end-diastolic pressure (LVEDP) Crescendo angina Cardiomyopathy Near syncope Dizziness MR (mitral regurgitation) Blockage of coronary artery of heart Pericarditis Failure of generator of implanted defibrillator Systolic heart failure residential (current) use of anticoagulants Chronic systolic heart failure Hyperlipemia Surgical History History of carpal tunnel release History of cardiac cath History of cholecystectomy AICD (automatic cardioverter/defibrillator) present Family History Other Heart attack Hyperlipidemia Hypertension Social History Smoking Status: Never smoker second hand exposure: No alcohol intake: never substance use type: denies use current occupational status: retired Travel in the last 8 weeks: None household members: spouse housing: house current occupational exposures/hazards: No caffeine: Yes Review of Systems Constitutional Constitutional: Denies fatigue and Reports weakness Eyes Eyes: Denies loss of vision ENT Ears, Nose, Mouth, and Throat: Denies hearing loss *Cardiovascular Cardiovascular: Reports chest pain and Denies dyspnea *Respiratory Respiratory: Denies cough and Denies dyspnea *Gastrointestinal Gastrointestinal: Denies change in stool character, Denies nausea and Denies vomiting *Genitourinary Genitourinary: Denies difficulty urinating *Musculoskeletal Musculoskeletal: Denies muscle weakness Integumentary/Breasts Skin/Breast: Denies changing lesions *Neurologic Neurologic: Reports as per HPI, Denies loss of vision and Reports weakness Endocrine Endocrine: Denies fatigue Exam Data for Last 24 hours Vital signs and Labs for Last 24 Hours: Temp Pulse Resp BP Pulse Ox O2 Del Method 97.9 F 60 23 109/51 L 97 Room Air 09/12/24 08:00 09/12/24 11:01 09/12/24 11:01 09/12/24 11:01 09/12/24 11:01 09/12/24 11:01 Laboratory Results - last 24 hr 09/12/24 03:34: POC Glucose 121 H 09/12/24 04:05: Urine Color Yellow, Urine Appearance Clear, Urine pH 5.5, Ur Specific [place] 1.025, Urine Protein Negative, Urine Glucose (UA) Negative, Urine Ketones Negative, Urine Blood Negative, Urine Nitrate Negative, Urine Bilirubin Negative, Urine Urobilinogen 0.2, Ur Leukocyte Esterase Negative, Urine RBC None, Urine WBC None, Urine Bacteria Trace 09/12/24 04:45: Troponin I 5.60 H 09/12/24 04:58: WBC 5.4, RBC 3.22 L, Hgb 9.5 L, Hct 28.9 L, MCV 89.8, MCH 29.5, MCHC 32.9, RDW 14.7, Plt Count 115 L D, MPV 11.3 H, Neut % (Auto) 77.7, Lymph % (Auto) 7.4 L, [place] % (Auto) 11.1 H, Eos % (Auto) 3.2, Baso % (Auto) 0.2, Neut # (Auto) 4.2, Lymph # (Auto) 0.4 L, [place] # (Auto) 0.6, Eos # (Auto) 0.2, Baso # (Auto) 0.0, Sodium 136, Potassium 4.2, Chloride 108 H, Carbon Dioxide 22, Anion Gap 10.2, BUN 43 H, Creatinine 1.50 H, Estimated Creat Clear 44, Estimated GFR 45 L, Est GFR ( Amer) 55 L, Glucose 99, Calcium 8.4, Phosphorus 4.8 H, Magnesium 2.8 H D, Total Bilirubin 0.4, AST 47 D, ALT 20 D, Alkaline Phosphatase 47, Total Protein 5.6 L, Albumin 3.3 L, Globulin 2.3, Albumin/Globulin Ratio 1.4 09/12/24 08:00: Troponin I 6.18 H I & O for Last 24 hours: Intake & Output 09/09/24 09/10/24 09/11/24 09/12/24 23:59 23:59 23:59 23:59 Intake Total 384.183 / 384.183 Output Total 675 / 675 Balance -290.817 / -290.817 Weight 165 lb 1.596 oz Constitutional Constitutional: no acute distress and cooperative *Routine HEENT Exam Eye: Present PERRL *Routine Respiratory Exam Respiratory: Present CTA bilaterally; Absent accessory muscle use, wheezes or crackles *Routine Cardiovascular Exam Cardiovascular: Present RRR, Normal S1 and Normal S2; Absent murmur, gallop or rubs *Routine Abdominal Exam Abdominal: Present soft; Absent tenderness *Routine Extremities Exam Extremities: Present pulses intact; Absent cyanosis or edema *Routine Skin Exam Skin: Present intact; Absent erythema or wounds *Routine Neurological Exam Neurological: Present alert and oriented X3 Routine Psychiatric Exam Psychiatric: Present cooperative Meds Home Medications and Allergies Home Medications ?Medication ?Instructions ?Recorded ?Confirmed ?Type ropinirole 3 mg tablet 3 mg PO HS 10/16/18 09/12/24 History promethazine 25 mg tablet 25 mg PO TIDP PRN Nausea 04/17/19 09/12/24 History oxycodone 10 mg tablet 10 mg PO Q12HP PRN Moderate Pain 08/14/19 09/12/24 History trazodone 100 mg tablet 100 mg PO HS 02/05/21 09/12/24 History ranolazine 1,000 mg 1,000 mg PO BID 03/24/21 09/12/24 History tablet,extended release,12 hr sacubitril 97 mg-valsartan 103 mg 1 tab PO BID 12/31/22 09/12/24 History tablet (Entresto) allopurinol 300 mg tablet 300 mg PO DAILY 01/12/23 09/12/24 History baclofen 10 mg tablet 10 mg PO BIDP PRN Muscle Spasm 07/04/23 09/12/24 History pregabalin 75 mg capsule 75 mg PO DAILY 07/04/23 09/12/24 History carvedilol 25 mg tablet 25 mg PO BIDWMEAL 10/12/23 09/12/24 History nitroglycerin 0.4 mg sublingual 0.4 mg sublingual Q5MINP PRN Chest 10/12/23 09/12/24 History tablet Pain rivaroxaban 20 mg tablet (Xarelto) 20 mg PO QPMWITHMEAL 10/12/23 09/12/24 History torsemide 20 mg tablet 20 mg PO DAILY PRN edema #30 tabs 01/04/24 09/12/24 Rx levofloxacin 750 mg tablet 750 mg PO DAILY 4 days #4 tabs 09/09/24 09/12/24 Rx omeprazole 40 mg capsule,delayed 40 mg PO DAILY 09/09/24 09/12/24 History release sucralfate 1 gram tablet 1 g PO BID PRN Upper abdominal 09/09/24 09/12/24 Rx pain 30 days #60 tabs tadalafil 5 mg tablet 5 mg PO DAILY 09/09/24 09/12/24 History tizanidine 4 mg tablet 8 mg (2 x 4 mg) PO HS PRN Spasms 09/09/24 09/12/24 Rx 30 days #0 tabs New Prescriptions to Start Prescriptions: Allergies Allergy/AdvReac Type Severity Reaction Status Date / Time procaine Allergy Unknown Unknown Verified 08/23/24 11:02 allergy reaction empagliflozin (From AdvReac Mild itching Verified 08/23/24 11:02 Jardiance) rosuvastatin AdvReac muscle pain Verified 08/23/24 11:02 Assessment and Plan *Assessment and plan (1) Ventricular fibrillation: Status: Acute Category: Medical Code(s): I49.01 - Ventricular fibrillation (2) Recurrent ventricular tachycardia: Status: Acute Category: Medical Code(s): I47.20 - Ventricular tachycardia, unspecified (3) CAD (coronary artery disease): Status: Acute Qualifiers: Associated angina: without angina Coronary Disease-Associated Artery/Lesion type: crow artery [place] vs. transplanted heart: crow heart Qualified Code(s): I25.10 - Atherosclerotic heart disease of crow coronary artery without angina pectoris Category: Medical Code(s): I25.10 - Atherosclerotic heart disease of crow coronary artery without angina pectoris (4) AICD (automatic cardioverter/defibrillator) present: Status: Chronic Category: Surgical Code(s): Z95.810 - Presence of automatic (implantable) cardiac defibrillator (5) Paroxysmal atrial fibrillation: Status: Acute Category: Medical Code(s): I48.0 - Paroxysmal atrial fibrillation Plan A-fib RVR in VT/VF zone with 31 ICD shocks - 31 shocks verified on interrogation - stable now on Amio, Lidocaine, Esmolol - ECHO pending - TSH normal, lytes unremarkable - pt agreeable to [facility] this afternoon to eval for possible new ischemia - Xarelto on hold for [facility] CAD, [place] - [place] 2017 - Last cath was 2021 showing severely elevated EDP and mild-mod CAD, no new stents - cont Esmolol IV, home dose Coreg on hold - intol to statins, last LDL 68 on 09/08/24 - home dose Xarelto on hold for [facility] s/p SHANTELL (Yoko Cl[employer]) 08/16/24 [facility] - repeat ECHO here shows moderate residual MR but noteably pt did have significant improvement in functional status after procedure HFrEF s/p ICD - Last ECHO 06/19 - EF 40%, biatrail dilation, SVR MR, small pericardial effusion - repeat ECHO pending - proBNP pending - check CXR Pericardial Effusion - 21mm noted on CT chest 09/08 - prelim ECHO here does not show tamponade - formal read pending 09/12 summary: Confirmed 30 ICD shocks for A-fib RVR in VT/VF zones. Stable on current IV meds. Going for LHC this afternoon. Further plans pending ECHO/LHC results.
--- NOTE | 2024-09-12 12:54 | XR_ITS ---
FINAL REPORT TECHNIQUE: Single view chest CLINICAL HISTORY: CHF, COPD COMPARISON: 10/11/2023 FINDINGS: A single view of the chest was obtained. There is moderate, stable cardiomegaly. A left-sided pacemaker is in place. The lungs are clear. There is no pneumothorax. IMPRESSION: No acute cardiopulmonary process. Reviewed, Interpreted and Dictated by Rex Ames MD Transcribed by Roma Wray Authenticated and [facility]
[2024-09-12] MEDS: LIDOCAINE 1% 10ML MDV 20 ML IJ (13:56)
[2024-09-12] MEDS: VERAPAMIL 2.5MG/ML 2ML VIAL 2.5 MG IV (13:56)
[2024-09-12] MEDS: HEPARIN 1,000 UNITS/500ML NS (CATH LAB) 3000 UNIT IV (13:57)
[2024-09-12] MEDS: diphenhydrAMINE 50MG/ML VIAL 50 MG IV (13:57)
[2024-09-12] MEDS: HEPARIN 1,000 UNITS/ML 10ML VIAL (CATH LAB) 10000 UNIT IV (13:57)
[2024-09-12] MEDS: 0.9 % SODIUM CHLORIDE 500 ML 25 ML IV (13:59)
[2024-09-12] MEDS: NITROGLYCERIN 800MCG/8ML SYR (CATH LAB) 800 MCG IA (13:59)
[2024-09-12] MEDS: MIDAZOLAM HCL 1MG/ML 5ML VIAL 1 MG IV (14:47)
[2024-09-12] MEDS: FENTANYL 100MCG/2ML VIAL 25 MCG IV (14:47)
[2024-09-12] MEDS: IOPAMIDOL-370 (76%);100ML BOTTLE 85 ML IV (15:20)
[2024-09-12] MEDS: TIZANIDINE 4MG TABLET 8 MG PO (18:16)
[2024-09-12] MEDS: ROPINIROLE 1MG TABLET 3 MG PO (20:00)
[2024-09-12] MEDS: AMIODARONE 200MG TABLET 400 MG PO (20:00)
[2024-09-12] MEDS: PANTOPRAZOLE 40MG TABLET 40 MG PO (20:00)
[2024-09-12] MEDS: HYDROMORPHONE 2MG/ML SYRINGE 0.5 MG IV (20:01)
[2024-09-13] VITALS (28 sets, daily range): BP systolic 85–136; BP diastolic 33–68; PULSE 57–61; RESP 10–16; TEMP 36.6–36.8; O2SAT 94–99; BMI 27.5
[2024-09-13] MEDS: TRAZODONE 50MG TABLET 100 MG PO (01:13)
[2024-09-13] MEDS: HYDROMORPHONE 2MG/ML SYRINGE 0.5 MG IV ×2 (01:34→05:21)
[2024-09-13] MEDS: ONDANSETRON 4MG/2ML VIAL 4 MG IV ×2 (02:40→08:50)
[2024-09-13] MEDS: ESMOLOL HCL IN STERILE WATER 2,500 MG/250 ML PIGGYBACK 11.23 MG IV (03:00)
[2024-09-13] MEDS: ACETAMINOPHEN 325MG TAB 650 MG PO ×2 (05:13→13:15)
[2024-09-13 07:31] LABS: Basophils % 0.5 % (0.1-2.0); Eosinophils # 0.3 K/mm3 (0.0-0.4); Hematocrit 29.5 % (42.0-52.0); Hemoglobin 9.8 g/dL (14.1-18.0); Lymphocytes # 0.4 K/mm3 (0.7-4.5); Lymphocytes % 10.2 % (10-50); Mean Corpuscular HGB Conc 33.2 g/dL (31.8-35.4); Mean Corpuscular Hemoglobin 29.8 pg (27.0-31.2); Mean Corpuscular Volume 89.7 fl (80-94); Mean Platelet Volume 11.1 fl (7.4-10.4); Monocytes # 0.3 K/mm3 (0.1-1.0); Monocytes % 8.4 % (1.7-9.3); Neutrophils # 2.8 K/mm3 (1.8-7.8); Neutrophils % 73.4 % (37.0-80.0); Platelet Count 102 K/mm3 (142-424); Red Blood Count 3.29 M/mm3 (4.60-6.20); Red Cell Distribution Width 14.6 % (11.5-17.5); White Blood Count 3.8 K/mm3 (4.8-10.8)
[2024-09-13 07:58] LABS: Alanine Aminotransferase 20 U/L (12-78); Albumin/Globulin Ratio 1.3 (1.1-1.8); Alkaline Phosphatase 40 U/L (38-126); Anion Gap 6.6 mEq/L (5-15); Aspartate Amino Transferase 41 U/L (17-59); Bilirubin,Total 0.5 mg/dl (0.2-1.3); Blood Urea Nitrogen 30 mg/dl (9-20); Carbon Dioxide 22 mmol/L (22.0-30.0); Chloride 111 mmol/L (98-107); Creatinine Clearance Estimated 60 mL/min (50-200); Estimated Glomerular Filt Rate 65 ml/min (>60); GFR (African American) 79 ML/MIN (>60); Globulin 2.3 g/dL (1.3-3.2); Glucose 100 mg/dl (74-100); Magnesium 2.7 mg/dl (1.6-2.3); Potassium 4.6 mmoL/L (3.5-5.1); Sodium 135 mmol/L (136-145); Total Protein,Serum 5.3 g/dl (6.3-8.2)
[2024-09-13] MEDS: PREGABALIN 25MG CAPSULE 75 MG PO (09:46)
[2024-09-13] MEDS: AMIODARONE 200MG TABLET 400 MG PO (09:47)
[2024-09-13] MEDS: SUCRALFATE 1GM TABLET 1 GM PO (09:48)
[2024-09-13] MEDS: OXYCODONE 5MG IMMEDIATE RELEASE TABLET 5 MG PO ×2 (09:55→16:47)
[2024-09-13] MEDS: CARVEDILOL 25MG TABLET 25 MG PO (12:29)
--- NOTE | 2024-09-13 12:39 | EXP.CARD.PN ---
Subjective Subjective Date: 09/13/24 Time: 09:30 Interval history: Left heart cath yesterday revealed nonobstructive disease-no intervention required. Pacemaker interrogation revealed events were all A-fib related. Patient has been stable overnight on Amio and transition to p.o. this morning. He is awaiting transfer to [facility] for A-fib ablation. Of note patient has had several episodes of emesis overnight likely due to Dilaudid which she is receiving for chronic pain plus acute pain from his falls. Discussed with hospitalist and nurse, they will reduce analgesics and provide antiemetics. Exam Data for Last 24 hours Vital signs and Labs for Last 24 Hours: Temp Pulse Resp BP Pulse Ox O2 Del Method 97.8 F 60 16 136/68 98 Room Air 09/13/24 12:00 09/13/24 12:00 09/13/24 12:00 09/13/24 12:00 09/13/24 12:00 09/13/24 12:00 Laboratory Results - last 24 hr 09/13/24 07:20: WBC 3.8 L D, RBC 3.29 L, Hgb 9.8 L, Hct 29.5 L, MCV 89.7, MCH 29.8, MCHC 33.2, RDW 14.6, Plt Count 102 L, MPV 11.1 H, Neut % (Auto) 73.4, Lymph % (Auto) 10.2, [place] % (Auto) 8.4, Eos % (Auto) 7.0, Baso % (Auto) 0.5, Neut # (Auto) 2.8, Lymph # (Auto) 0.4 L, [place] # (Auto) 0.3, Eos # (Auto) 0.3, Baso # (Auto) 0.0, Sodium 135 L, Potassium 4.6, Chloride 111 H, Carbon Dioxide 22, Anion Gap 6.6, BUN 30 H D, Creatinine 1.10 D, Estimated Creat Clear 60, Estimated GFR 65, Est GFR ( Amer) 79 D, Glucose 100, Calcium 9.0, Magnesium 2.7 H, Total Bilirubin 0.5, AST 41, ALT 20, Alkaline Phosphatase 40, Total Protein 5.3 L, Albumin 3.0 L, Globulin 2.3, Albumin/Globulin Ratio 1.3 I & O for Last 24 hours: Intake & Output 09/10/24 09/11/24 09/12/24 09/13/24 23:59 23:59 23:59 23:59 Intake Total 2856.674 / 2856.674 380.696 / 380.696 Output Total 1525 / 1525 1100 / 1100 Balance 1331.674 / 1331.674 -719.304 / -719.304 Weight 165 lb 1.596 oz 165 lb 4.8 oz Constitutional Constitutional: no acute distress and cooperative *Routine HEENT Exam Eye: Present PERRL *Routine Respiratory Exam Respiratory: Present CTA bilaterally; Absent accessory muscle use, wheezes or crackles *Routine Cardiovascular Exam Cardiovascular: Present RRR, Normal S1 and Normal S2; Absent murmur, gallop or rubs *Routine Abdominal Exam Abdominal: Present soft; Absent tenderness *Routine Extremities Exam Extremities: Present pulses intact; Absent cyanosis or edema *Routine Skin Exam Skin: Present intact; Absent erythema or wounds *Routine Neurological Exam Neurological: Present alert and oriented X3 Routine Psychiatric Exam Psychiatric: Present cooperative Progress Note: A&P Assessment and plan (1) CAD (coronary artery disease): Status: Acute (2) AICD (automatic cardioverter/defibrillator) present: Status: Chronic (3) Paroxysmal atrial fibrillation: Status: Acute (4) ICD (implantable cardioverter-defibrillator) discharge: Status: Acute (5) Atrial fibrillation with rapid ventricular response: Status: Acute Assessment and Plan Assessment and Plan for All Diagnoses:: A-fib RVR in VT/VF zone with 31 ICD shocks on 09/11 - 31 shocks verified on interrogation, each were for A-fib RVR in VT/VF zones - stable now on Amio and Coreg - ECHO here shows EF still 30-35%, - TSH normal, lytes unremarkable - LHC here shows stable nonobstructive dz, no intervention required - Xarelto on hold for anticipated procedure, will use Lovenox for now - suspect A-fib exacerbation is possibly from Mitral Valve Intervention 08/16/24 - plan is to transfer to [facility] for A-fib ablation, pt agreeable CAD, [place] - Trop up to 6 here in setting of recurrent ICD shocks, EKG shows a-paced with moderate lateral t-wave abnormality - [place] 2017 - [facility] 2021 showing severely elevated EDP and mild-mod CAD, no new stents - Repeat [facility] here 09/12/24 - stable nonobstructive dz - DC Esmolol, resume home dose Coreg - intol to statins, last LDL 68 on 09/08/24 - home dose Xarelto on hold for ablation, continue Lovenox s/p SHANTELL (Yoko Clip) 08/16/24 [facility] - repeat ECHO here shows moderate residual MR but noteably pt did have significant improvement in functional status after procedure Chronic HFrEF s/p ICD - ECHO 06/19 - EF 40%, biatrail dilation, SVR MR, small pericardial effusion - ECHO here 09/13/24 - EF 30-35% s/p mitraclip with mod MR, s/p iatrogenic ASD from MitraClip, small pericardial effusion - Pt euvolemic on exam, CXR - no acute process - GDMT on hold due to low BP Pericardial Effusion - 21mm noted on CT chest 09/08 - ECHO here 09/13/24 - small pericardial effusion 0.8cm, no tamponade ASD - secondary to SHANTELL/Yoko Clip 08/16/24 N/V - presumed secondary to Dilaudid which he is receiving for chronic pain and acute pain post fall - Hospitalist changing Dilaudid to home dose analgesics, will use antiemetics Chronic Pain - on Requip, Tizanadine, Pregabalin, and Oxycodone at home - per Hospitalist CV Summary 09/13: Change Xarelto to Lovenox, resume statin, resume Coreg, continue Amio, DC Esmolol and Lidocaine. Address nausea. Awaiting transfer to [facility] for A-fib ablation.
--- NOTE | 2024-09-13 13:23 | PC.NURSE ---
attempted to give pt lovenox injection. needle inserted and pt began to scream out in pain. unable to inject medication r/t pt stated pain
--- NOTE | 2024-09-13 17:08 | EXP.DC.SUM ---
General Admission date:: 09/12/24 Discharge date: 09/13/24 HPI HPI HPI: Mr. Bello 78-year-old long history of cardiac with an implanted AED. He knows Dr. Fish very well. As his history is significant for CAD with 3 stents with a decreased ejection fraction. Patient had his AED going off quite often to the point and knocked him to the ground.. He was able to get to the [facility] where he was started on amiodarone and lidocaine and he became in better control. Esmolol was also added. Dr. Fish was contacted by me he feels ER physician and transport was arranged and he was placed in our ICU. Since arriving the patient's heart rate has been pacer to at 60 no signs of a Flowers C other vital signs within normal limits. Amiodarone has been decreased lately and lidocaine has been decreased to 1 mg. Will have patient seen by Dr. Fish this a.m. Hospital Course Hospital Course Hospital Course: A-fib RVR in VT/VF zone with 31 ICD shocks on 09/11 - 31 shocks verified on interrogation, each were for A-fib RVR in VT/VF zones - stable now on Amio and Coreg. ECHO here shows EF still 30-35%, - TSH normal, lytes unremarkable. [facility] 09/12/24 shows stable nonobstructive dz, no intervention required - Xarelto on hold for anticipated procedure, will use Lovenox for now - suspect A-fib exacerbation is possibly from Mitral Valve Intervention 08/16/24 - graciously accepted to [facility] for A-fib ablation, pt agreeable CAD, NV - Trop up to 6 here in setting of recurrent ICD shocks, EKG shows a-paced with moderate lateral t-wave abnormality - [place] 2017; [facility] 2021 showing severely elevated EDP and mild-mod CAD, no new stents; Repeat [facility] here 09/12/24 - stable nonobstructive dz - Initially on esmolol, amiodarone, lidocaine for rate control. Discontinued Esmolol, lidocaine. Resume home dose Coreg - home dose Xarelto on hold for ablation, continue Lovenox s/p SHANTELL (Yoko Clip) 08/16/24 [facility] - repeat ECHO here shows moderate residual MR but noteably pt did have significant improvement in functional status after procedure Chronic HFrEF s/p ICD - ECHO 06/19 - EF 40%, biatrail dilation, SVR MR, small pericardial effusion - ECHO here 09/13/24 - EF 30-35% s/p mitraclip with mod MR, s/p iatrogenic ASD from MitraClip, small pericardial effusion - Pt euvolemic on exam, CXR - no acute process - GDMT on hold due to low BP Pericardial Effusion - 21mm noted on CT chest 09/08. ECHO here 09/13/24 - small pericardial effusion 0.8cm, no tamponade ASD: secondary to SHANTELL/Yoko Clip 08/16/24 Chronic Pain - on Requip, Tizanadine, Pregabalin, and Oxycodone at home CV Summary 09/13: Change Xarelto to Lovenox, resume statin, resume Coreg, continue Amio, DC Esmolol and Lidocaine. Address nausea. Awaiting transfer to [facility] for A-fib ablation. Total time spent on discharge 38 minutes in counseling, documentation, chart review, and direct care with patient. Exam Data for Last 24 hours Vital signs and Labs for Last 24 Hours: Temp Pulse Resp BP Pulse Ox O2 Del Method 98.1 F 60 15 101/48 L 97 Room Air 09/13/24 16:00 09/13/24 16:00 09/13/24 16:00 09/13/24 16:00 09/13/24 16:00 09/13/24 16:00 Laboratory Results - last 24 hr 09/13/24 07:20: WBC 3.8 L D, RBC 3.29 L, Hgb 9.8 L, Hct 29.5 L, MCV 89.7, MCH 29.8, MCHC 33.2, RDW 14.6, Plt Count 102 L, MPV 11.1 H, Neut % (Auto) 73.4, Lymph % (Auto) 10.2, Ogle % (Auto) 8.4, Eos % (Auto) 7.0, Baso % (Auto) 0.5, Neut # (Auto) 2.8, Lymph # (Auto) 0.4 L, Ogle # (Auto) 0.3, Eos # (Auto) 0.3, Baso # (Auto) 0.0, Sodium 135 L, Potassium 4.6, Chloride 111 H, Carbon Dioxide 22, Anion Gap 6.6, BUN 30 H D, Creatinine 1.10 D, Estimated Creat Clear 60, Estimated GFR 65, Est GFR ( Amer) 79 D, Glucose 100, Calcium 9.0, Magnesium 2.7 H, Total Bilirubin 0.5, AST 41, ALT 20, Alkaline Phosphatase 40, Total Protein 5.3 L, Albumin 3.0 L, Globulin 2.3, Albumin/Globulin Ratio 1.3 I & O for Last 24 hours: Intake & Output 09/10/24 09/11/24 09/12/24 09/13/24 23:59 23:59 23:59 23:59 Intake Total 2856.674 / 2856.674 800.696 / 800.696 Output Total 1525 / 1525 1495 / 1495 Balance 1331.674 / 1331.674 -694.304 / -694.304 Weight 74.888 kg 74.979 kg Constitutional Constitutional: no acute distress, average body habitus, chronically ill appearing and cooperative *Routine HEENT Exam Head: Present normocephalic Eye: Present EOMI and PERRL ENT: Present mucous membranes moist *Routine Neck Exam Neck: Present supple; Absent lymphadenopathy Comments: TTP in traps Routine Chest/Breast/Axilla Exam Chest wall: Present pacemaker *Routine Respiratory Exam Respiratory: Present CTA bilaterally; Absent rhonchi, wheezes or crackles *Routine Cardiovascular Exam Cardiovascular: Present RRR *Routine Abdominal Exam Abdominal: Present soft and normoactive bowel sounds; Absent tenderness *Routine Rectal Exam Patient deferred: visual exam *Routine Exam Patient deferred: penile exam *Routine Extremities Exam Extremities: Absent cyanosis, clubbing or edema *Routine Skin Exam Skin: Present intact and warm; Absent rash *Routine Neurological Exam Neurological: Present alert, oriented X3 and moving all extremities; Absent altered mental status Results Data Completed and Pending Labs on day of discharge: Labs from last 24 hours 09/13/24 07:20 WBC 3.8 L D RBC 3.29 L Hgb 9.8 L Hct 29.5 L MCV 89.7 MCH 29.8 MCHC 33.2 RDW 14.6 Plt Count 102 L MPV 11.1 H Neut % (Auto) 73.4 Lymph % (Auto) 10.2 Ogle % (Auto) 8.4 Eos % (Auto) 7.0 Baso % (Auto) 0.5 Neut # (Auto) 2.8 Lymph # (Auto) 0.4 L Ogle # (Auto) 0.3 Eos # (Auto) 0.3 Baso # (Auto) 0.0 Sodium 135 L Potassium 4.6 Chloride 111 H Carbon Dioxide 22 Anion Gap 6.6 BUN 30 H D Creatinine 1.10 D Estimated Creat Clear 60 Estimated GFR 65 Est GFR ( Amer) 79 D Glucose 100 Calcium 9.0 Magnesium 2.7 H Total Bilirubin 0.5 AST 41 ALT 20 Alkaline Phosphatase 40 Total Protein 5.3 L Albumin 3.0 L Globulin 2.3 Albumin/Globulin Ratio 1.3 DS: Diagnosis Discharge Diagnosis (1) CAD (coronary artery disease): Status: Acute Code(s): I25.10 - Atherosclerotic heart disease of [place] coronary artery without angina pectoris Qualifiers: Associated angina: without angina Coronary Disease-Associated Artery/Lesion type: [place] artery [place] vs. transplanted heart: [place] heart Qualified Code(s): I25.10 - Atherosclerotic heart disease of [place] coronary artery without angina pectoris (2) AICD (automatic cardioverter/defibrillator) present: Status: Chronic Code(s): Z95.810 - Presence of automatic (implantable) cardiac defibrillator (3) Paroxysmal atrial fibrillation: Status: Acute Code(s): I48.0 - Paroxysmal atrial fibrillation (4) ICD (implantable cardioverter-defibrillator) discharge: Status: Acute Code(s): Z45.02 - Encounter for adjustment and management of automatic implantable cardiac defibrillator (5) Atrial fibrillation with rapid ventricular response: Status: Acute Code(s): I48.91 - Unspecified atrial fibrillation (6) Recurrent ventricular tachycardia: Status: Acute Code(s): I47.20 - Ventricular tachycardia, unspecified (7) Disorder of implanted defibrillator generator: Status: Acute Code(s): T82.9XXA - Unspecified complication of cardiac and vascular prosthetic device, implant and graft, initial encounter Qualifiers: Encounter type: initial encounter Qualified Code(s): T82.9XXA - Unspecified complication of cardiac and vascular prosthetic device, implant and graft, initial encounter (8) HFrEF (heart failure with reduced ejection fraction): Status: Acute Code(s): I50.20 - Unspecified systolic (congestive) heart failure Meds Home Medications and Allergies Home Medications ?Medication ?Instructions ?Recorded ?Confirmed ?Type ropinirole 3 mg tablet 3 mg PO HS 10/16/18 09/12/24 History promethazine 25 mg tablet 25 mg PO TIDP PRN Nausea 04/17/19 09/12/24 History trazodone 100 mg tablet 100 mg PO HS 02/05/21 09/12/24 History ranolazine 1,000 mg 1,000 mg PO BID 03/24/21 09/12/24 History tablet,extended release,12 hr sacubitril 97 mg-valsartan 103 mg 1 tab PO BID 12/31/22 09/12/24 History tablet (Entresto) allopurinol 300 mg tablet 300 mg PO DAILY 01/12/23 09/12/24 History baclofen 10 mg tablet 10 mg PO BIDP PRN Muscle Spasm 07/04/23 09/12/24 History pregabalin 75 mg capsule 75 mg PO DAILY 07/04/23 09/12/24 History carvedilol 25 mg tablet 25 mg PO BIDWMEAL 10/12/23 09/12/24 History nitroglycerin 0.4 mg sublingual 0.4 mg sublingual Q5MINP PRN Chest 10/12/23 09/12/24 History tablet Pain rivaroxaban 20 mg tablet (Xarelto) 20 mg PO QPMWITHMEAL 10/12/23 09/12/24 History torsemide 20 mg tablet 20 mg PO DAILY PRN edema #30 tabs 01/04/24 09/12/24 Rx omeprazole 40 mg capsule,delayed 40 mg PO DAILY 09/09/24 09/12/24 History release sucralfate 1 gram tablet 1 g PO BID PRN Upper abdominal 09/09/24 09/12/24 Rx pain 30 days #60 tabs tadalafil 5 mg tablet 5 mg PO DAILY 09/09/24 09/12/24 History tizanidine 4 mg tablet 8 mg (2 x 4 mg) PO HS PRN Spasms 09/09/24 09/12/24 Rx 30 days #0 tabs acetaminophen 325 mg tablet 650 mg (2 x 325 mg) PO Q6HP PRN 09/13/24 Rx Fever Or Mild Pain (1-3) #0 tabs amiodarone 200 mg tablet 400 mg (2 x 200 mg) PO BID #0 tabs 09/13/24 Rx enoxaparin 80 mg/0.8 mL 75 mg (0.75 mL) SQ Q12H #0 mL 09/13/24 Rx subcutaneous syringe oxycodone 5 mg tablet 5 mg PO Q6HP PRN Moderate To 09/13/24 Rx Severe Pain (4-10) #0 tabs pantoprazole 40 mg tablet,delayed 40 mg PO HS #0 tabs 09/13/24 Rx release New Prescriptions to Start Prescriptions: Allergies Allergy/AdvReac Type Severity Reaction Status Date / Time procaine Allergy Unknown Unknown Verified 08/23/24 11:02 allergy reaction empagliflozin (From AdvReac Mild itching Verified 08/23/24 11:02 Jardiance) rosuvastatin AdvReac muscle pain Verified 08/23/24 11:02 Discharge Plan Disposition Patient Disposition: Xfer Short-Term Hosp Condition: Fair Follow up Plan Follow up with: Dell Fish MD [Staff Physician] - Enter time for follow up Prescriptions/Medication Reconciliation: New acetaminophen 325 mg Tablet 650 mg PO Q6HP PRN (Reason: Fever Or Mild Pain (1-3)) Qty: 0 0RF amiodarone 200 mg Tablet 400 mg PO BID Qty: 0 0RF pantoprazole 40 mg Tablet,Delayed Release (Dr/Ec) 40 mg PO HS Qty: 0 0RF oxycodone 5 mg Tablet 5 mg PO Q6HP PRN (Reason: Moderate To Severe Pain (4-10)) Qty: 0 0RF enoxaparin 80 mg/0.8 mL Syringe 75 mg SQ Q12H Qty: 0 0RF Continued ropinirole 3 mg tablet 3 mg PO HS promethazine 25 mg tablet 25 mg PO TIDP PRN (Reason: Nausea) ranolazine 1,000 mg tablet extended release 12 hr 1,000 mg PO BID baclofen 10 mg tablet 10 mg PO BIDP PRN (Reason: Muscle Spasm) pregabalin 75 mg capsule 75 mg PO DAILY Patient Comments: TAKE ONE (1) CAPSULE EVERY 24 HOURS BY ORAL ROUTE NEEDED FOR 30 DAYS. torsemide 20 mg tablet 20 mg PO DAILY PRN (Reason: edema) Qty: 30 2RF allopurinol 300 mg tablet 300 mg PO DAILY trazodone 100 MG tablet 100 mg PO HS carvedilol 25 mg tablet 25 mg PO BIDWMEAL Patient Comments: TAKE ONE (1) TABLET BY MOUTH TWICE DAILY WITH FOOD Xarelto 20 mg tablet 20 mg PO QPMWITHMEAL nitroglycerin 0.4 mg tablet, sublingual 0.4 mg sublingual Q5MINP PRN (Reason: Chest Pain) omeprazole 40 mg capsule,delayed release(DR/EC) 40 mg PO DAILY tadalafil 5 mg tablet 5 mg PO DAILY Patient Comments: TAKE ONE (1) TABLET BY MOUTH EVERY DAY sucralfate 1 gram tablet 1 g PO BID PRN (Reason: Upper abdominal pain) 30 Days Qty: 60 0RF tizanidine 4 mg tablet 8 mg PO HS PRN (Reason: Spasms) 30 Days Qty: 0 0RF Entresto 97-103 mg tablet 1 tab PO BID Patient Comments: TAKE ONE (1) TABLET BY MOUTH TWICE DAILY Discontinued oxycodone 10 mg tablet 10 mg PO Q12HP PRN (Reason: Moderate Pain) levofloxacin 750 mg tablet 750 mg PO DAILY 4 Days Qty: 4 0RF Rx Instructions: LAST DOSE 09/14/24 Problem Reconciliation Problems Reviewed?: Yes Patient Discharge Instructions ACTIVITY: Continue current activity DIET: continue same diet Stand Alone Forms: Transfer Record Patient Instructions: Cardiac Catheterization, Ventricular Tachycardia, Surgical Site Infection Print Language: [place] Islander Providers Primary Care Provider: Vitaly Suazo Admit Provider: Denys Deckre Attending Provider: Denys Decker
--- NOTE | 2024-09-13 19:23 | PC.NURSE ---
report called to delfin at [facility] at approx 1740. called and arranged transfer with ems at 1800. once all parts of discharge entered, ems called for transport and pt left unit at 1840
== END 2024-09-13 18:40 | disposition short-term general hospital (02) | DRG 287 ==
PROVIDERS: Internal Medicine; Nurse Practitioner Family; Admitting Provider Internal Medicine Adolescent Medicine; PCP Family Medicine; Visit Provider Internal Medicine Adolescent Medicine
PROC: B2111ZZ Fluoroscopy of Multiple Coronary Arteries using Low Osmolar Contrast (ICD-10-PCS; principal; 2024-09-12 11:00)
DX: I48.0 Paroxysmal atrial fibrillation (principal); T82.198A Other mechanical complication of other cardiac electronic device, initial encounter; I50.22 Chronic systolic (congestive) heart failure; N17.9 Acute kidney failure, unspecified; J90 Pleural effusion, not elsewhere classified; I49.01 Ventricular fibrillation; Y71.0 Diagnostic and monitoring cardiovascular devices associated with adverse incidents; I25.10 Atherosclerotic heart disease of native coronary artery without angina pectoris; Z95.810 Presence of automatic (implantable) cardiac defibrillator; Z82.49 Family history of ischemic heart disease and other diseases of the circulatory system; Z79.899 Other long term (current) drug therapy; Z88.8 Allergy status to other drugs, medicaments and biological substances; Z79.01 Long term (current) use of anticoagulants; Z95.5 Presence of coronary angioplasty implant and graft; G47.33 Obstructive sleep apnea (adult) (pediatric); G25.81 Restless legs syndrome; I34.0 Nonrheumatic mitral (valve) insufficiency; I11.0 Hypertensive heart disease with heart failure
CPT/HCPCS: 36415; 70450; 70490; 71045; 80053; 81001; 82962; 83735; 84100; 84484; 85025; 87081; 93005; 93306; 93454; 97163; 99152; 99153; C1725; C1769; J0282; J1171; J1200; J1644; J1650; J2250; J2405; J3010; J7060; Q9967

== ENCOUNTER → 2024-09-25 11:47 | Day surgery (SDC) | payer MEDICARE, SELFPAY | PROVIDERS: PCP Family Medicine; Visit Provider Internal Medicine | DX: I48.91 Unspecified atrial fibrillation (principal); Z53.9 Procedure and treatment not carried out, unspecified reason; I25.2 Old myocardial infarction; Z95.810 Presence of automatic (implantable) cardiac defibrillator; Z95.5 Presence of coronary angioplasty implant and graft; Z79.01 Long term (current) use of anticoagulants; Z79.890 Hormone replacement therapy; Z79.899 Other long term (current) drug therapy; Z88.4 Allergy status to anesthetic agent; Z88.8 Allergy status to other drugs, medicaments and biological substances; Z82.49 Family history of ischemic heart disease and other diseases of the circulatory system ==

== ENCOUNTER 2025-01-31 19:19 | Emergency (ER) | payer MEDICARE, SELFPAY ==
--- OUTSIDE RECORDS SUMMARY | 2025-01-31 19:41 | XMS_ITS ---
Author Name Interface, [id number] lity Address [address] [place], [place] [id number] [facility] Address [address] [place], [place] [id number] Plan Reason for Visit Encounters Diagnostic Results Medications Problems Vital Signs
--- OUTSIDE RECORDS SUMMARY | 2025-01-31 19:41 | XMS_ITS | CCD ---
Author Name Interface, [id number] lity Address [address] [id number] Organization [facility] Address [address] [place], [place] [id number] Care Team Providers Care Allergy Specialist Name Role Phone Linda SPICER, Phan Lou Unavailable Unavailable Reason for Visit Functional Status Medications Problems Social History
--- OUTSIDE RECORDS SUMMARY | 2025-01-31 19:41 | XMS_ITS ---
Author Name Interface, [id number] lity Address [address] [place], [place] [id number] [facility] Address [address] [place], [place] [id number] Plan Reason for Visit Immunizations Diagnostic Results Medications Problems Vital Signs Notes Section
--- OUTSIDE RECORDS SUMMARY | 2025-01-31 19:41 | XMS_ITS ---
Author Name Interface, [id number] lity Address [address] [place] [address] [facility] Address [address] [place] [address] Plan Date Type Value 11/27/2019 APPOINTMENT 6 mo fu 11/27/2019 APPOINTMENT 6 mo fu 11/27/2019 APPOINTMENT CBC w/ auto diff 09/18/2019 APPOINTMENT 6 mo fu 09/18/2019 APPOINTMENT 6 mo fu 03/20/2019 APPOINTMENT 6mo md fu 03/20/2019 APPOINTMENT 6mo md fu 09/19/2018 APPOINTMENT 6 MO AYLEEN FU 09/19/2018 APPOINTMENT 6 MO AYLEEN FU 09/19/2018 LABORDER CBC w/ auto diff 03/20/2019 LABORDER CBC w/ auto diff 11/27/2019 LABORDER CBC w/ auto diff Reason for Visit CBC w/ auto diff Encounters Date Name 09/19/2018 Polycythemia 09/19/2018 Thrombocytopenia Diagnostic Results Date Type Test Units Lower Limit Upper Limit Result Flag Comments Status Ordered By Specimen Source Lab Address 09/19 Lab Repor t See reception agent d 03/20 Lab Repor t See reception agent d Medications Date Name Route Dose Frequency Instructions Start Date End Date Status Torsemide Oral orally 20.0 mg every day active Omeprazole Oral Delayed Release Capsule orally 20.0 mg every day active Gabapentin Oral orally 800.0 mg 3 times p er day active Ranolazine Oral 12 hr Tab orally 500.0 mg every 12 hours do not break, crush, or chew tablet(s) active Allopurinol Oral orally 300.0 mg every day active Promethazine Oral orally 25.0 mg every 4 to 6 hours prn nausea and vomiting active Warfarin Oral orally 5.0 mg every day active Ropinirole Oral orally 3.0 mg once a day active Tizanidine Oral orally 4.0 mg 3 times p er day active Topiramate Oral orally 50.0 mg 2 times p er day active Tamsulosin Oral orally 0.4 mg every day active Hydrocodone-Acet aminophen Oral 10 mg-325 mg orally 2.0 every 6 hours prn pain active Sotalol Oral 2 daily act remy Meclizine Oral orally 25.0 mg 4 times pe r day active Sacubitril-Valsa rtan Oral 49 mg-51 mg 24.0 mg twice a day active Problems Diagnosis Status Date of Diagnosis Resolution Date Polycythemia Active Thrombocytopenia Active GERMAN Active Red blood cell disorder (disorder) Active Vital Signs Date Type Value 09/19/2018 BMI 33.65 09/19/2018 Height 65.00 09/19/2018 Weight 202.20 09/19/2018 Pain Scale 7.00 09/19/2018 BSA 2.05 09/19/2018 Respiratory Rate 15.00 09/19/2018 Heart Beat 62.00 09/19/2018 Body Temperature 98.30 09/19/2018 Intravascular Systolic 136 09/19/2018 Intravascular Diastolic 77 03/20/2019 BSA 2.06 03/20/2019 BMI 33.91 03/20/2019 Height 65.00 03/20/2019 Weight 203.80 03/20/2019 Pain Scale 0.00 03/20/2019 Intravascular Systolic 146 03/20/2019 Intravascular Diastolic 80 03/20/2019 Respiratory Rate 14.00 03/20/2019 Body Temperature 98.10 03/20/2019 Heart Beat 68.00
--- OUTSIDE RECORDS SUMMARY | 2025-01-31 19:41 | XMS_ITS | Clinical Summary ---
Author Organization [facility] Address [address] [place] [address] Care Team Providers Care Tank Calibrator Name Role Phone Unavailable Primary Care Provider Unavailabl e Social History Tobacco Use Types Packs/Day Years Used Date Smoking Tobacco: Never Assessed Sex and Gender Information Value Date Recorded Sex Assigned at Not on file Legal Sex Male 8:24 PM EDT Gender Identity Not on file Sexual Orientation Not on file Plan of Treatment Health Maintenance Due Date Last Done Comments Hepatitis C Screening 1945 Lipid Panel 1945 Medicare Annual Wellness (AWV) 1945 Diabetes Screening 1964 Hepatitis B Screening 1964 DTaP/Tdap/Td Vaccines (1 - Tdap) 1965 Pneumococcal Vaccine: 50+ Ye ars (1 of 2 - PCV) 1965 Zoster Vaccines (1 of 2) 1996 COVID-19 Vaccine ( - 2023-2 5 season) 2024 Depression Risk Screening 06/27/2024 Fall Risk Screening 06/27/2024 SDOH Screening 06/27/2024 Influenza Vaccine (#1) 2025 HIB Vaccines Aged Out No longer eligi ble based on patient's age to complete this topic HPV Vaccines Aged Out No longer eligi ble based on patient's age to complete this topic Hepatitis A Vaccines Aged Out No long er eligible based on patient's age to complete this topic Hepatitis B Vaccines Aged Out No long er eligible based on patient's age to complete this topic IPV Vaccines Aged Out No longer eligi ble based on patient's age to complete this topic Meningococcal B Vaccine Aged Out No l onger eligible based on patient's age to complete this topic Meningococcal Vaccine Aged Out No donald matt eligible based on patient's age to complete this topic Rotavirus Vaccines Aged Out No longer eligible based on patient's age to complete this topic Insurance [employer] MEDICARE ADVANTAGE
--- OUTSIDE RECORDS SUMMARY | 2025-01-31 19:41 | XMS_ITS ---
Author Name Interface, [id number] lity Address [address] [place], [place] [id number] [facility] Address [address] [place], [place] [id number] Plan Reason for Visit Encounters Diagnostic Results Medications Problems Vital Signs
--- OUTSIDE RECORDS SUMMARY | 2025-01-31 19:41 | XMS_ITS | Patient Health Record ---
Author Organization [facility] Address [address] [place] [address] Care Team Providers Care Canvas Shop Laborer Name Role Phone Denys Beaulieu DO Primary Care Provider Unavailab le Allergies Allergen (clinical drug ingredient) Drug/Non Drug Allergy documented on EMR Reaction Allergy Type Onset Date Status Procaine HCl Unknown Drug Allergy Acti ve Reason For Referral No Information Medications Medication SIG (Take, Route, Frequency, Duration) Notes Start Date End Date Status Warfarin Sodium 5 MG 1 tablet Orally Onc e a day; Duration: 30 day(s) or 1/2 tab Active Topiramate 25 MG 1 tablet Orally Once a day; Duration: 30 day(s) Active Ranexa 500 MG 1 tablet Orally Twic e a day; Duration: 30 day(s) Active rOPINIRole HCl 1 MG 1 tab Orally at bedtime; Duration: 30 day(s) Active Sotalol HCl 120 MG 4 tabs Orally daily; Duration: 30 day(s) Active tiZANidine HCl 4 MG Orally once in the morning and 2 tabs at bedtime Active Tamsulosin HCl 0.4 MG 1 capsule Orally O nce a day; Duration: 30 day(s) Active Meclizine HCl 25 MG 1 tablet as needed Orally Once a day; Duration: 30 day(s) Active Allopurinol 300 MG 1 tablet Orally Once a day; Duration: 30 day(s) Active Ondansetron 4 MG 1 tablet on the tong ue and allow to dissolve Orally every 12 hrs; Duration: 30 day(s) Active Promethazine HCl 25 MG 1 tablet as neede d Orally twice daily; Duration: 30 day(s) Active Entresto 24-26 MG 1 tablet Orally Twic e a day; Duration: 30 day(s) Active Omeprazole 20 MG 1 capsule Orally Onc e a day; Duration: 30 day(s) Active Torsemide 20 MG 1 tab Orally daily Active Diclofenac Sodium 1 % Externally Active HYDROcodone-Acetaminophe n 10-325 MG 1 tablet as needed Orally every 6 hrs Active Lidocaine 5 % 1 application to affected area as needed Externally Three times a day Active Lyrica 100 MG 1 capsule Orally [address] ee times a day Active Vitamin D3 2000 UNIT 1 capsule Orally ev geronimo week; Duration: 30 day(s) Active Social History Tobacco Use: Social History Observation Description Date Details (start date - stop date) Never Smoker NA - NA Tobacco Use/Smoking Question Answer Notes Are you a nonsmoker Additional Findings: Tobacco Non-User Aggressive non-smoker Tobacco use other than smoking: Question Answer Notes Are you an other tobacco user? No Section Notes: Retired Retired Problems Problem Type SNOMED Code ICD Code Onset Dates Problem Status W/U Status Risk Notes Problem Chronic pain (80371901) Other chronic pain (G89.29) Active confirmed Plan Of Treatment No Information Insurance Providers Payer Name Payer Address Payer Phone Subscriber Number Group Number Insured Name Patient Relationship to Insured Coverage Start Date Coverage End Date [employer] [address] [address] [place] [id number] [place] Bello Self - patient is the insured Medical (General) History Medical History History ICD Code Arthritis Neuropathy Hypertension Pace Marker Heart disease Vascular Disease Fibromylagia Gout Surgical History Surgery Date(Month/Year) Hand Surgery (L) 06/2012 Defibrillator Surgery 06/[address] defibrillator [place] 06/2006 Several Heart Catheterization (Every 2-3 years) Carpal Tunnel Surgery 06/2002
--- OUTSIDE RECORDS SUMMARY | 2025-01-31 19:41 | XMS_ITS | Clinical Summary ---
Author Organization [facility] Address [address] [place] [address] Phone Care Team Providers Care Gleason Gear Generator Name Role Phone Vitaly Suazo Primary Care Provider [phone] Allergies Active Allergy Reactions Criticality Noted Date Comments Cocaine Other (See Comments) 02/21/2020 reaction from a procedure Medications clopidogreL (PLAVIX) 75 mg Oral Tablet Take 75 mg by mouth daily. 0 Active erythromycin (ROMYCIN) Opht Ointment 0 Active gabapentin (NEURONTIN) 400 mg Oral Capsule Takes 200 mg every morning and 400 mg every evening 0 Active lisinopriL (PRINIVIL;ZESTRI L) 20 mg Oral Tablet tablet 20 mg daily. 0 Active methocarbamoL (ROBAXIN) 750 mg Oral Tablet Take 750 mg by mouth 3 times daily. 0 Active omeprazole (PRILOSEC) 20 mg Oral Capsule, Delayed Release(E.C.) 20 mg every morning (before breakfast). 0 Active ondansetron (ZOFRAN-ODT) 4 mg Oral Tablet, Rapid Dissolve Take 4 mg by mouth every 12 hours. As needed 0 Active oxyCODONE 10 mg Oral Tablet Take 1 Tab by mouth every 12 hours. 0 Active pramipexole (MIRAPEX) 0.5 mg Oral Tablet 0 Active Ranolazine 1,000 mg Oral Tablet Sustained Release 12 hr Take 1 Tab by mouth 2 times daily. 0 Active rOPINIRole (REQUIP) 3 mg Oral Tablet Take 3 mg by mouth nightly. 0 Active sildenafiL, pulm.hypertensio n, (REVATIO) 20 mg Oral Tablet TAKE ONE TABLET BY MOUTH DAILY NEEDED FOR sexual activity 0 Active tiZANidine (ZANAFLEX) 4 mg Oral Tablet Take 4 mg by mouth. 0 Active torsemide (DEMADEX) 20 mg Oral Tablet Takes 40 mg daily 0 Active tadalafiL (CIALIS) 5 mg Oral Tablet Take 5 mg by mouth as needed for Erectile Dysfunction. Active DICLOFENAC SODIUM TOP Apply topically. Apply topically once daily to affected area Active ferrous sulfate 325 mg (65 mg iron) Oral Tablet Take 325 mg by mouth daily. Active naloxone (NARCAN) 2 mg/actuation Nasl [place], Non-Aerosol by Nasal route. Ac tive nitroGLYCERIN (NITROSTAT) 0.4 mg SL Tablet, Sublingual Place under the tongue every 5 minutes as needed for Chest pain. If needed Active sotaloL (BETAPACE) 240 mg Oral Tablet Take 240 mg by mouth 2 times daily. Takes two tabs daily Active alfuzosin (UROXATRAL) 10 mg Oral Tablet Sustained Release 24 hr Take 10 mg by mouth daily. Active rivaroxaban (XARELTO) 20 mg Oral Tablet Take 20 mg by mouth daily. Active HAVRIX, PF, 1,440 CHARLIE unit/mL IM Syringe 0 Active Syringe with Needle, Disp, (SYRINGE 3CC/87XI7-8/2 ) 3 mL [facility] give [facility] shots every 2 weeks 8 Syringe 2 0 Active baclofen (LIORESAL) 10 mg Oral Tablet 0 Active AIMOVIG AUTOINJECTOR 140 mg/mL SubQ Auto-Injector 0 Active FLUZONE HIGHDOSE QUAD 20- PF 240 mcg/0.7 mL IM Syringe ADM 0.7ML IM UTD 0 Active metoprolol succinate ER (TOPROL-XL) 100 mg Oral Tablet Sustained Release 24 hr 0 Active NURTEC ODT 75 mg Oral Tablet, Rapid Dissolve 0 Active SPS, WITH SORBITOL, 15-20 gram/60 mL Oral Suspension 0 Active pregabalin (LYRICA) 75 mg Oral Capsule Take 75 mg by mouth 2 times daily. 1 Active traZODone (DESYREL) 100 mg Oral Tablet TAKE ONE (1) TABLET BY MOUTH EVERY DAY 1 Active testosterone cypionate (DEPOTESTOTERONE CYPIONATE) 200 mg/mL IM Oil Inject 0.75 mL into the muscle every 14 days. 2 mL 1 1 Active Active Problems Patient Care Coordination No te Formatting of this note migh t be different from the original. TESTOSTERONE: DATE OF LAST CRAIG: 06/30/20/RDC/gr DATE OF LAST CONTRACT: 06/30/20RDC/gr DATE OF LAST SOAP: 06/30/20RDC/gr Problem Noted Date Diagnosed Date Hypogonadism male 12/18/2019 Essential hypertension 12/18/2019 Gastroesophageal reflux disease without esophagi tis 12/18/2019 CAD (coronary atherosclerotic disease) 0 Arthritis 12/18/2019 Gout 12/18/2019 Restless leg syndrome 12/18/2019 Migraine 12/18/2019 Immunizations Immunization Administration Dates Next Due Hepatitis A, Adult 08/22/2019 Tdap 03/27/2015 Surgical History Surgery Date Site/Laterality Comments CARDIAC CATHETERIZATION x8 CARDIAC DEFIBRILLATOR PLACEMENT 12/25/2017 implant OTHER SURGICAL HISTORY 05/27/2019 - 06/26/2019 Nerve block - neck for headaches x 3 ARM SURGERY bilateral arm release surgery CAROTID STENT OTHER SURGICAL HISTORY thumb removed/replaced Medical History Medical History Date Comments Testosterone deficiency Gout 02/20/2018 Restless legs 10/31/2017 Migraine Neuropathy 10/31/2017 Meniere disease 10/31/2017 Hypertension 10/31/2017 essential hypert ension Coronary arteriosclerosis Gastroesophageal reflux disease 10/31/2017 Arthritis of spine 10/31/2017 Degeneration of lumbar intervertebral disc 10/31 Fibromyalgia 10/31/2017 Edema of left lower extremity 11/28/2017 Cardiovascular disease 10/31/2017 Family History Medical History Relation Name Comments COPD Brother Cancer Father Glaucoma Mother High Blood Pressure Mother Heart Disease Other Relation Name Status Comments Brother Other CHRONIC OBSTRUC TIVE LUNG DX Father Other CA in situ of l evelia Mother Other Other unspecified rel ation Social History Tobacco Use Types Packs/Day Years Used Date Smoking Tobacco: Never Smokeless Tobacco: Never Sex and Gender Information Value Date Recorded Sex Assigned at Not on file Legal Sex Male 1:58 PM EDT Gender Identity Not on file Sexual Orientation Not on file Obstetrics History Last Filed Vital Signs Vital Sign Reading Time Taken Comments Blood Pressure 137/74 12/02/2020 1:44 PM EDT Pulse 69 12/02/2020 1:44 PM EDT Temperature - - Respiratory Rate 16 12/02/2020 1:44 PM EDT Oxygen Saturation - - Inhaled Oxygen Concentration - - Weight 88.2 kg (194 lb 8 oz) 12/02/2020 1:44 PM EDT Height 165.1 cm (5' 5 ) 12/02/2020 1:44 PM EDT Body Mass Index 32.37 12/02/2020 1:44 PM EDT Plan of Treatment Health Maintenance Due Date Last Done Comments Wellness Exam Medicare 1948 Hepatitis C Screening 1963 Pneumococcal Vaccine 50+ (1 of 1 - PCV) 1996 Zoster (1 of 2) 1996 RSV or 60+ (1 - 1-dose 75+ series) 2021 COVID-19 Vaccine (3 - 2023-2 5 season) 2024 09/12/2020, 08/09/2020 Influenza Vaccine (#1) 2025 03/30/2018 DTaP/TDaP/Td (2 - Td or Tdap) 03/27/2025 03/27/2015 Hepatitis B Vaccine Aged Out No longe r eligible based on patient's age to complete this topic Meningococcal B Vaccine Aged Out No l onger eligible based on patient's age to complete this topic Insurance Care Teams Gleason Gear Generator Relationship Specialty Start Date End Date Vitaly Suazo [address] [place] [address] PCP - General Family Medicine 12/18/19
--- OUTSIDE RECORDS SUMMARY | 2025-01-31 19:42 | XMS_ITS | CCD ---
Author Name Interface, [id number] lity Address [address] [place] [address] Organization [facility] Address [address] [place] [address] Care Team Providers Care Bottom Bleacher Name Role Phone Phan Mckeon MD Unavailable Unavailable Reason for Visit CBC w/ auto diff Functional Status Date Name Score 09/19/2018 ECOG performance status - grade 0 0 03/20/2019 ECOG performance status - grade 0 0 03/21/2018 ECOG performance status - grade 0 0 12/20/2017 ECOG performance status - grade 0 0 01/03/2018 ECOG performance status - grade 0 0 01/17/2018 ECOG performance status - grade 0 0 Medications Date Name Route Dose Frequency Instructions Start Date End Date Status Tizanidine Oral orally 4.0 mg 3 times p er day active Sacubitril-Valsa rtan Oral 49 mg-51 mg 24.0 mg twice a day active Tamsulosin Oral orally 0.4 mg every day active Warfarin Oral orally 5.0 mg every day active Torsemide Oral orally 20.0 mg every day active Meclizine Oral orally 25.0 mg 4 times pe r day active Omeprazole Oral Delayed Release Capsule orally 20.0 mg every day active Promethazine Oral orally 25.0 mg every 4 to 6 hours prn nausea and vomiting active Allopurinol Oral orally 300.0 mg every day active Topiramate Oral orally 50.0 mg 2 times p er day active Hydrocodone-Acet aminophen Oral 10 mg-325 mg orally 2.0 every 6 hours prn pain active Sotalol Oral 2 daily act remy Ranolazine Oral 12 hr Tab orally 500.0 mg every 12 hours do not break, crush, or chew tablet(s) active Ropinirole Oral orally 3.0 mg once a day active Gabapentin Oral orally 800.0 mg 3 times p er day active Problems Diagnosis Status Date of Diagnosis Resolution Date Polycythemia Active Thrombocytopenia Active GERMAN Active Red blood cell disorder (disorder) Active Social History Date Name Value Sex Male
--- OUTSIDE RECORDS SUMMARY | 2025-01-31 19:42 | XMS_ITS ---
Author Name Interface, [id number] lity Address [address] [place], [place] [id number] [facility] Address [address] [place], [place] [id number] Plan Reason for Visit Immunizations Diagnostic Results Medications Problems Vital Signs Notes Section
--- OUTSIDE RECORDS SUMMARY | 2025-01-31 19:42 | XMS_ITS | Patient Health Record ---
Author Organization [facility] Address [address] [place] [address] Care Team Providers Care Medical Office Assistant Name Role Phone Denys Parra Primary Care Provider Ina De La Torre [phone] Allergies Allergen (clinical drug ingredient) Drug/Non Drug Allergy documented on EMR Reaction Allergy Type Onset Date Status Zofran ODT mouth blisters Drug Allergy A ctive Reason For Referral No Information Medications Medication SIG (Take, Route, Frequency, Duration) Notes Start Date End Date Status Fenofibrate Micronized 200 MG 1 capsule with a meal Orally Once a day Not-Taking Topiramate 50 MG 1 tablet Orally Twic e a day; Duration: 30 day(s) Active Sotalol HCl 240 MG 1 tablet Orally Twic e a day Active Gemfibrozil 600 MG 1 tablet Orally Twic e a day Not-Taking Promethazine HCl 25 MG 1 tablet as neede d for nausea Orally Twice a day; Duration: 30 day(s) Active Debrox 6.5 % Otic Active HYDROcodone-Acetaminophen 10-325 MG 1 tablet as needed for pain Orally every 6 hrs; Duration: 30 days Active Isosorbide Mononitrate 20 MG 1 tablet as needed Orally Twice a day Active Warfarin Sodium 5 MG 1 tablet Orally Active Methylcobalamin 5000 MCG 1 tablet Sublin gual Once a day; Duration: 30 days Active Testosterone Cypionate 100 MG/ML 1 ml Intramuscular Active Lyrica 150 MG 1 capsule Orally Thr ee times a day; Duration: 30 days Active Torsemide 20 MG Orally Once a day Active rOPINIRole HCl 3 MG 1 tablet Orally Once a day 1 to 3 hours before bedtime; Duration: 30 days Active Tamsulosin HCl 0.4 MG 1 capsule Orally O nce a day Active Botox 200 UNIT as directed Injectio n for migrain headache; Duration: 1 dose Active Lyrica 75 TAKE ONE CAPSULE BY MOUTH THREE TIMES DAILY FOR 30 DAYS; Duration: 30 Active Ondansetron HCl 4 MG take 1 tablet by mo ut every 12 hours for nausea Orally Twice a day; Duration: 30 days Active Nortriptyline HCl 25 MG 1 capsule at bed time Orally Once a day; Duration: 30 Active Voltaren 1 % as directed Transder mal apply 2 GM to right elbow twice a day; Duration: 30 days Active Valsartan 160 MG 1 tablet Orally Once a day Active Lidocaine 5 % 1 application to affected area as needed Externally Three times a day; Duration: 30 days Active Vitamin D (Ergocalciferol) 06193 UNIT 1 capsule Orally Once a week Active Magnesium 100 MG 2 tablets with a donald l Orally Twice a day; Duration: 30 day(s) Active Allopurinol 300 MG 0.5 tablet Orally On ce a day Active Gabapentin 800 MG 1 tablet Orally Thre e times a day Active Cialis 5 MG 1 tablet Orally ever y 24 hrs Not-Taking Flector 1.3 % 1 patch to skin Transdermal apply to low back area once a day; Duration: 30 days Active tiZANidine HCl 4 MG 1 tablet as needed Orally 1 tab po daily (daytime) and 2 tabs daily at bedtime; Duration: 30 days Active Omeprazole 20 MG 1 capsule Orally Onc e a day Active Ranexa 500 MG 1 tablet Orally Twic e a day Active Immunizations Vaccine Route Administration Date Status Comme nts Influenza Unknown 06/08/2016 Refused Problems Problem Type SNOMED Code ICD Code Onset Dates Problem Status W/U Status Risk Notes Problem Gout (26203057) Gout, unspecifie d (274.9) Active confirmed Problem Chronic pain syndrom e (846983668) Chronic pain syndrome (338.4) Active confirmed Problem Refractory migraine (994228141) Migraine, unspecified with intractable migraine, so stated, without mention of status migrainosus (346.91) Active confirmed Problem 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, 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) Active confirmed Problem Benign essential hypertension (2713455) Essential hypertension, benign (401.1) Active confirmed Problem Sciatica (02916375) Sciatica (724.3) Active con firmed Problem Pain in thoracic spine (265772773) Pain in thoracic spine (724.1) Active confirmed Problem Lumbago (587504290) Lumbago (724.2) Active conf irmed Problem Multiple joint pain (34190344) Pain in joint, multiple sites (719.49) Active confirmed Problem Degeneration of cervical intervertebral disc (82081251) Degeneration of cervical intervertebral disc (722.4) Active confirmed Problem Muscle pain (00106732) Unspecified myalgia and myositis (729.1) Active confirmed Problem Pain in limb (55335203) Pain in soft tissues of limb (729.5) Active confirmed Problem Headache (43971217) Headache (784.0) Active con firmed Problem Nausea (124563542) Nausea alone (787.02) Active confirmed Problem Automatic implantabl e cardiac defibrillator in situ (340395049) Automatic implantable cardiac defibrillator in situ (V45.02) Active confirmed Problem Long-term current us e of anticoagulant (234919088) Encounter for long-term (current) use of anticoagulants (V58.61) Active confirmed Problem Vitamin B>12< deficiency anaemia (97708554) Vitamin B12 deficiency anemia, unspecified (D51.9) Active confirmed Problem Hyperparathyroidism (77396706) Hyperparathyroidism , unspecified (E21.3) Active confirmed Problem Testicular dysfunction (65029950) Testicular dysfunction, unspecified (E29.9) Active confirmed Problem Vitamin D deficiency (74287139) Vitamin D deficiency, unspecified (E55.9) Active confirmed Problem Iron deficiency (60393584) Iron deficiency (E61.1) Active confirmed Problem Pure hyperglyceridemia (335969849) Pure hyperglyceridemia (E78.1) Active confirmed Problem Restless legs syndrome (43336602) Restless legs syndrome (G25.81) Active confirmed Problem Refractory migraine without aura (813605090) Migraine without aura, intractable, without status migrainosus (G43.019) Active confirmed Problem Sleep apnea (43031546) Sleep apnea, unspecified (G47.30) Active confirmed Problem Polyneuropathy (66598411) Polyneuropathy, unspecified (G62.9) Active confirmed Problem Atherosclerotic hear t disease of m[place]gr[place] coronary artery without angina pectoris (901506214356256) Atherosclerotic heart disease of [place]gr[place] coronary artery without angina pectoris (I25.10) Active confirmed Problem Old myocardial infarction (9789140) Old myocardial infarction (I25.2) Active confirmed Problem Acute maxillary sinusitis (37496694) Acute maxillary sinusitis, unspecified (J01.00) Active confirmed Problem Acute ethmoidal sinusitis (85581677) Acute ethmoidal sinusitis, unspecified (J01.20) Active confirmed Problem Chronic sphenoidal sinusitis (60775501) Chronic sphenoidal sinusitis (J32.3) Active confirmed Problem Cervical spondylosis without myelopathy (372154051) Other spondylosis, cervical region (M47.892) Active confirmed Problem Lumbosacral spondylosis without myelopathy (51956704) Other spondylosis, lumbosacral region (M47.897) Active confirmed Problem Degeneration of lumbar intervertebral disc (99336453) Other intervertebral disc degeneration, lumbar region (M51.36) Active confirmed Problem Lumbar radiculopathy (414741150) Radiculopathy, lumbar region (M54.16) Active confirmed Problem Cervicalgia (12852590) Cervicalgia (M54.2) Active confirmed Problem Lateral epicondyliti s (555337900) Lateral epicondylitis, right elbow (M77.11) Active confirmed Problem Neuralgia (61092546) Neuralgia a nd neuritis, unspecified (M79.2) Active confirmed Problem Pain in right leg (115663653) Pain in right leg (M79.604) Active confirmed Problem Pain in left leg (739176537) Pain in left leg (M79.605) Active confirmed Problem Chronic kidney disease (747771376) Chronic kidney disease, unspecified (N18.9) Active confirmed Problem Nausea (778433294) Nausea (R11.0) Active confir med Problem Headache (45979492) Headache (R51) Active confi rmed Problem C-reactive protein abnormal (689581827) Elevated C-reactive protein (CRP) (R79.82) Active confirmed Problem Automatic implantabl e cardiac defibrillator in situ (128618337) Presence of automatic (implantable) cardiac defibrillator (Z95.810) Active confirmed Problem Spinal stenosis of lumbar region (83170640) Spinal stenosis, lumbar region without neurogenic claudication (M48.061) Active confirmed Plan Of Treatment Pending Test Test Name Order Date X ray : Thoracic spine 2 views AP Lat Thyroid Panel With TSH 12/09/2016 Thyroid Panel With TSH 01/06/2017 Thyroid Panel With TSH 02/03/2017 Vitamin B12 and Folate 02/03/2017 Vitamin B12 and Folate 01/06/2017 Vitamin B12 and Folate 12/09/2016 Vitamin B12 and Folate 07/12/2017 Hemoglobin A1c 12/09/2016 Hemoglobin A1c 01/06/2017 Hemoglobin A1c 02/03/2017 Vitamin B6 02/03/2017 Vitamin B6 01/06/2017 Vitamin B6 12/09/2016 Vitamin B6 07/12/2017 CBC With Differential/Platelet 8 Sedimentation Rate-Westergren 07/12/2017 Sedimentation Rate-Westergren 01/06/2017 Sedimentation Rate-Westergren 02/03/2017 Sedimentation Rate-Westergren 12/09/2016 C-Reactive Protein, Quant 02/03/2017 C-Reactive Protein, Quant 01/06/2017 C-Reactive Protein, Quant 07/12/2017 C-Reactive Protein, Quant 12/09/2016 Angiotensin-Converting Enzyme 07/12/2017 RPR, Rfx Qn RPR/Confirm TP-PA 07/12/2017 Lyme IgG/IgM Ab 07/12/2017 Lyme IgG/IgM Ab 12/09/2016 Lyme IgG/IgM Ab 01/06/2017 Lyme IgG/IgM Ab 02/03/2017 Heavy Metals Profile I, Blood 07/12/2017 Vitamin B1 (Thiamine), Plasma 12/09/2016 Vitamin B1 (Thiamine), Plasma 07/12/2017 Vitamin B1 (Thiamine), Plasma 02/03/2017 Vitamin B1 (Thiamine), Plasma 01/06/2017 Protein Elec + Interp, Serum 07/12/2017 Comp. Metabolic Panel (14) 07/12/2017 HIV antibody 07/12/2017 X ray : LS Spine (AP, Lat) 01/24/2014 CT Scan : Lumbar Spine W/O Contrast 02/26 CT Scan : Cervical Spine W/O Contrast EMG/NCV LOWER EXTREMITIES 06/08/2017 EMG/NCV LOWER EXTREMITIES 07/05/2017 UDT 01/24/2014 UDT 10/01/2014 UDT 07/01/2015 UDT 07/29/2015 UDT 09/09/2015 UDT 10/09/2015 UDT 11/11/2015 UDT 12/04/2015 UDT 01/13/2016 UDT 04/06/2016 UDT 07/06/2016 UDT 08/10/2016 x ray : Cervical spine (AP, Lat) 014 CT Scan : Brain without and with Contras t 02/07/2014 [facility] Profile 01/24/2014 CT CERVICAL SPINE W/O CONTRAST 7 CT CERVICAL SPINE W/O CONTRAST 8 CT CERVICAL SPINE W/O CONTRAST 8 CT LUMBAR SPINE W/O CONTR & 3D RECON UDT CUSTOM PANEL 07/12/2017 UDT CUSTOM PANEL 07/05/2017 UDT CUSTOM PANEL 04/05/2017 UDT CUSTOM PANEL 05/03/2017 UDT CUSTOM PANEL 06/08/2017 Insurance Providers Payer Name Payer Address Payer Phone Subscriber Number Group Number Insured Name Patient Relationship to Insured Coverage Start Date Coverage End Date [facility] [address] [place] [address] [id number] Chino Bello Self - patient is the insured Medical (General) History Medical History History ICD Code Arthritis heart disease high blood pressure On Blood Thinner pacemaker blood clot right ophtalmic artery Surgical History Surgery Date(Month/Year) bilateral ulnar nerve release at elbow left 1st c-mp reconstruction bilateral carpal tunnel release multiple bone fractures and ORIF pacemaker and defibrillator placement Hospitalization History Reason Date(Month/Year) brain concussions blood clot right ophtalmic artery pacemaker and defibrillator placement multiple bone fractures and ORIF heart attack, PTCA w STENTs placement
--- OUTSIDE RECORDS SUMMARY | 2025-01-31 19:42 | XMS_ITS | Clinical Summary ---
Author Organization [facility] Address [address] [place] [address] Care Team Providers Care Verification Rep Name Role Phone Vitaly Suazo MD Primary Care Provider [phone] Allergies Active Allergy Reactions Criticality Noted Date Comments Empagliflozin Itching Medium 07/07/2022 Merethoxylline Other - please docum ent in the comment field Low 08/19/2023 Patient does not know reaction Procaine Other - please docum ent in the comment field,Unknown - Patient states they do not know rxn details Low 02/08/2018 pt/family stated was informed per surgeon after procedure that pt allergic to med, however, stated did not inform pt/famly of actual reaction observed. Rosuvastatin Other - please docum ent in the comment field Low 07/07/2022 Medications allopurinol (Zyloprim) 300 MG tablet Take 1 tablet (300 mg) by mouth daily. Take with 100 mg tablet for a total dose of 400 mg daily 8 Active torsemide (Demadex) 20 MG tablet Take 1 tablet (20 mg) by mouth daily. Dosage based on weight Active tadalafil (Cialis) 5 MG tablet Take 1 tablet (5 mg) by mouth. Active rOPINIRole (Requip) 1 MG tablet Take 1 tablet (1 mg) by mouth nightly. 8 Active rivaroxaban (Xarelto) 20 MG tablet Take 1 tablet (20 mg) by mouth 1 (one) time each day. Active nitroglycerin (Nitrostat) 0.[address] 1 tablet (0.4 mg) under the tongue every 5 (five) minutes as needed. 8 Active sacubitril-valsarta n (Entresto) 97-103 MG tablet Take 1 tablet by mouth 2 (two) times a day. Active albuterol 108 (90 Base) MCG/ACT inhaler Inhale 2 puffs 4 (four) times a day. Active carvedilol (Coreg) 25 MG tablet Take 1 tablet (25 mg) by mouth 2 (two) times a day with meals. Active oxyCODONE (Roxicodone) 10 MG immediate release tablet Take 1 tablet (10 mg) by mouth 2 (two) times a day. Active testosterone cypionate (Depo-Testosterone) 200 MG/ML injection Inject into the muscle every 14 (fourteen) days. Active baclofen (Lioresal) 10 MG tablet TAKE ONE TABLET BY MOUTH ONCE OR TWICE DAILY NEEDED 4 Active pramipexole (Mirapex) 0.5 MG tablet TAKE ONE (1) TABLET BY MOUTH THREE (3) TIMES DAILY 4 Active pregabalin (Lyrica) 75 MG capsule TAKE ONE (1) CAPSULE EVERY 24 HOURS BY ORAL ROUTE NEEDED FOR 30 DAYS. 4 Active omeprazole (PriLOSEC) [address] capsule Take by mouth 1 (one) time each day. 4 Active ranolazine (Ranexa) 1000 MG 12 hr tablet Take 1 tablet (1,000 mg) by mouth 2 (two) times a day. 4 Active promethazine (Phenergan) 25 MG tablet Take 1 tablet (25 mg) by mouth every 8 hours as needed for nausea or vomiting. Active allopurinol (Zyloprim) 100 MG tablet Take 1 tablet (100 mg) by mouth daily. Take with 300 mg tablet for a total dose of 400 mg daily Active traZODone (Desyrel) 100 MG tablet Take 1 tablet (100 mg) by mouth nightly. 5 Active Rimegepant Sulfate (Nurtec) 75 MG orally disintegrating tablet Take 1 tablet (75 mg) by mouth as needed. Active Active Problems Problem Noted Date Diagnosed Date Nonrheumatic mitral valve regurgitation 08/16/19 25 Shortness of breath 07/06/2024 Dizziness 07/06/2024 A-fib 07/06/2024 GERD (gastroesophageal reflux disease) GERMAN (obstructive sleep apnea) 07/06/2024 Fibromyalgia 07/06/2024 Syncope, near 07/06/2024 Pericarditis 07/06/2024 CAD (coronary artery disease) 07/06/2024 AICD (automatic cardioverter/defibrillator) pres ent 07/06/2024 Pulmonary hypertension 07/06/2024 Mitral valve regurgitation 07/06/2024 Dermatochalasis of both upper eyelids 12/14/2023 Brow ptosis 12/14/2023 Arthritis 12/18/2019 Essential hypertension 12/18/2019 Gout 12/18/2019 Restless leg syndrome 12/18/2019 Hypogonadism male 12/18/2019 Chronic kidney disease 03/07/2018 Congestive heart failure 03/07/2018 Hyperlipidemia 03/07/2018 Immunizations Immunization Administration Dates Next Due Hep A, Adult 08/22/2019 Influenza, High-dose, Split Virus, Trivalent, Injectable, preservative free 03/30/2018 Influenza, high-dose, quadrivalent 05/26/2022,,03/30/2018 Influenza, injectable, quadrivalent 03/11/2020,0 02/22/2019 Influenza, seasonal, injectable 05/03/2024 Moderna COVID-19 Vaccine (Re d Cap) 12+ years 09/12/2020,08/09/2020 Pneumococcal 20-jackie Conj Vaccine 05/03/2024 SARS-CoV-2, Unspecified 04/21/2021,09/12/2020, Tdap 03/27/2015 Family History Medical History Relation Name Comments Coronary artery disease Brother Lung cancer Father Coronary artery disease Mother Relation Name Status Comments Brother Father Mother Social History Tobacco Use Types Packs/Day Years Used Date Smoking Tobacco: Never Passive Smoke Exposure: Past Smokeless Tobacco: Never Alcohol Use Standard Drinks/Week Comments Not Currently 0 (1 standard drink = 0.6 oz pur e alcohol) PHQ-2 Answer Date Recorded Patient Health Questionnaire-2 Score 0 07/23/2024 Sex and Gender Information Value Date Recorded Sex Assigned at Not on file Legal Sex Male 8:10 PM EDT Gender Identity Not on file Sexual Orientation Not on file Last Filed Vital Signs Vital Sign Reading Time Taken Comments Blood Pressure 137/62 08/17/2024 7:32 AM EST Pulse 64 08/17/2024 7:32 AM EST Temperature 36.6 C (97.9 F) 08/17/2024 7:32 AM EST Respiratory Rate 12 08/17/2024 7:32 AM EST Oxygen Saturation 97% 08/17/2024 7:32 AM EST Inhaled Oxygen Concentration - - Weight 77 kg (169 lb 12.1 oz) 08/16/2024 1:33 PM EST Height 165.1 cm (5' 5 ) 08/16/2024 1:33 PM EST Body Mass Index 28.25 08/16/2024 1:33 PM EST Plan of Treatment Upcoming Encounters Date Type Department Care Team (Late st Contact Info) Description 08/21/2025 1:30 PM EST Appointment Medical Office Building Cardiac Diagnostic Testing Medical Office Building Echo Lab [address], [address] [place] [address] 08/21/2025 2:30 PM EST Office Visit [facility] [address], [address] [place] [address] Analy Jain PA [address] [place] [id number] Health Maintenance Due Date Last Done Comments [facility]-Hepatitis C Screening 1945 [facility]-Medicare Annual Wellness (AWV) 1945 [facility]-Infant/Child/Adol SDOH Screenings 1945 [facility]- SDOH Screenings 1964 [facility]-Adult SDOH Screenings 1964 [facility]-Zoster Vaccines (1 of 2) 1996 [facility]-RSV Vaccine: 60+ Years or (1 - 1-dose 75+ series) 2021 [id number] Vaccine ( season) 2024 05/26/2022, 04/21/2021, 09/12/2020, Additional history exists [facility]-Influenza Vaccine (#1) 02/25/202505/03, 05/26/2022, 04/02/2021, Additional history exists [facility]-DTaP,Tdap,and Td Vaccines (2 - Td or Tdap) 03/27/2025 03/27/2015 [facility]-Depression Screening 07/23/2025 07/23/2024 [facility]-Hepatitis A Vaccines Aged Out 08/22/2019 No longer eligible based on patient's age to complete this topic [facility]-Pneumococcal Vaccine: 50+ Years Completed 05/03/2024 [facility]-Obesity Intervention Completed 025, 07/23/2024, 02/03/2024, Additional history exists HPV Vaccines Aged Out No longer eligi ble based on patient's age to complete this topic [facility]-HIB Vaccines Aged Out No longer e ligible based on patient's age to complete this topic [facility]-IPV Vaccines Aged Out No longer e ligible based on patient's age to complete this topic [facility]-Rotavirus Vaccines Aged Out No lo nger eligible based on patient's age to complete this topic Medical Devices Implanted Type Area Game Producer Device Identifier Shelf Expiration Date Model / Serial / Lot Kit Mitrial Clip G4 - [id number] Implanted:Qty: 1 on 08/16/2024 by Stewart Rodgers MD at [id number] 10/22/2025 [id number] / / [id number] Insurance [facility] MEDICARE Advance Directives * Full Code (Latest Code Status on File) Date Activated Date Inactivated Comments 08/16/2024 10:02 AM 08/17/2024 11:11 AM Question Answer Comments Patient has decision-making capacity? Yes Care Teams Verification Rep Relationship Specialty Start Date End Date Vitaly Suazo MD [address] [place] [address] PCP - General 02/03/24
--- OUTSIDE RECORDS SUMMARY | 2025-01-31 19:42 | XMS_ITS ---
Author Name Interface, [id number] lity Address [address] [place], [place] [id number] [facility] Address [address] [place], [place] [id number] Plan Reason for Visit Encounters Diagnostic Results Medications Problems Vital Signs
[2025-01-31 19:49] VITALS: BP 111/61; PULSE 85; RESP 16; TEMP 36.8; O2SAT 98; BMI 29.2
--- NOTE | 2025-01-31 20:09 | [facility].EDGENADL ---
Discharge Plan Disposition Patient Disposition: Home, Self-Care Condition: Good Prescriptions Prescriptions: No Action promethazine 25 mg tablet 25 mg PO TIDP PRN (Reason: Nausea) pregabalin 75 mg capsule 75 mg PO DAILY Patient Comments: TAKE ONE (1) CAPSULE EVERY 24 HOURS BY ORAL ROUTE NEEDED FOR 30 DAYS. testosterone 20.25 mg/1.25 gram (1.62 %) gel in metered-dose pump 2 pump topical DAILY Patient Comments: APPLY TWO (2) PUMPS EVERY DAY BY TRANSDERMAL ROUTE torsemide 20 mg tablet 20 mg PO DAILY Qty: 90 3RF trazodone 100 mg tablet 100 mg PO HS Qty: 90 1RF pramipexole 0.5 mg tablet 0.5 mg PO TID Patient Comments: TAKE 1 TABLET BY MOUTH THREE (3) TIMES DAILY Nurtec ODT 75 mg tablet,disintegrating 75 mg PO ONCE PRN Patient Comments: TAKE 1 TABLET BY MOUTH NEEDED carvedilol [Coreg] 25 mg tablet 25 mg PO BID Qty: 60 5RF Rx Instructions: give with food (meal/snack) Entresto 24-26 mg tablet 1 tab PO BID Qty: 60 5RF allopurinol 100 mg tablet 100 mg PO DAILY Patient Comments: TAKE ONE (1) TABLET EVERY DAY BY ORAL ROUTE FOR 90 DAYS. allopurinol 300 mg tablet 300 mg PO DAILY Patient Comments: TAKE ONE (1) TABLET BY MOUTH EVERY DAY oxycodone 10 mg tablet 10 mg PO Q12H Patient Comments: TAKE 1 TABLET BY MOUTH EVERY 12 HOURS NEEDED alprazolam [Xanax] 0.25 mg tablet 0.25 mg PO TID PRN (Reason: anxiety) Qty: 90 0RF ranolazine 1,000 mg tablet extended release 12 hr 1,000 mg PO BID Qty: 180 3RF Xarelto 20 mg tablet 20 mg PO QPMWITHMEAL nitroglycerin 0.4 mg tablet, sublingual 0.4 mg sublingual Q5MINP PRN (Reason: Chest Pain) omeprazole 40 mg capsule,delayed release(DR/EC) 40 mg PO DAILY tizanidine 4 mg tablet 8 mg PO HS PRN (Reason: Spasms) 30 Days Qty: 0 0RF acetaminophen 325 mg Tablet 650 mg PO Q6HP PRN (Reason: Fever Or Mild Pain (1-3)) Qty: 0 0RF Referrals Follow up/Referrals: Vitaly Suazo MD [Primary Care Provider, Medical] - See instructions Activity Restrictions/Add. Instructions Additional Instructions/Restrictions: Return to the emergency department for any acute or worsening symptoms. Your kidney function was slightly decreased therefore I would like you to stay well-hydrated at home and follow-up with your primary care provider in the next 3 to 5 days for repeat labs. Clinical Impressions Clinical Impression: Fall Print Language Print Language: Swazi Discharge ED Provider: Luzma Camp General Adult HPI <SHAKIR Ball - Last Filed: 01/31/25 21:56> General Chief complaint: Fall Stated complaint: AO 01/31/25 1800 Injury to head Time Seen by Provider: 01/31/25 19:39 Mode of Arrival: Wheelchair Source of Information: Patient and Spouse Description of Symptoms (Recalled from ER Triage Doc. by RN): Pt arrives after taking a fall backwards today at approx 1730 in his home. Spouse states he was in/out of consciousness and is taking blood thinners. Pt does not recall how he felt before his fall. He reports headache, and upper back pain, as well as pain in his right pointer finger. NIH is 0 at this time. Denies any nausea or vomiting after fall. History of Present Illness HPI narrative: 79-year-old male presents to the emergency department accompanied by his for a unwitnessed fall that occurred at approximately 1730 in his home today, this is described as a ground-level fall but the patient is unsure of how he fell, is unsure if any presyncopal or syncopal episode, is unsure of any LOC, he is on anticoagulation therapy with Xarelto, for atrial fibrillation, patient admits to neck pain and upper back pain, as well as headache, denies any fever chills chest pain shortness of breath, no abdominal pain no nausea no vomiting, no urinary type symptomatology, right knee pain, NIH of 0 at the bedside, patient is unsure of how he fell, initial triage vitals are unremarkable, denies any alcohol tobacco or drug use, other past medical history is consistent with ICD, CAD, hemochromatosis, status post mitral valve clip, GERMAN on CPAP, CAD, hypertension, HFrEF, hyperlipidemia, GERD, RLS, pulmonary hypertension. Please note that above description of symptoms, in this electronic medical record under categorization of recalled from ER triage doctor by RN are reflective of an initial nursing assessment, however, is not reflective of my full history and physical exam that was personally taken and clarified. Consequentially, this preceding description of symptoms, which may include the patient's categorized chief complaint in the EMR, do not reflect my personal clinical impression, and the ultimate description of history of present illness and patient stated complaints should be deferred to this section of the note. Unless stated otherwise or congruent with this section of the note, additional signs, symptoms, or incongruence should be interpreted as inaccurate with my clinical impression. Onset (ago): hour(s) Related Data Home Medications ?Medication ?Instructions ?Recorded ?Confirmed promethazine 25 mg tablet 25 mg PO TIDP PRN Nausea 04/17/19 12/18/24 pregabalin 75 mg capsule 75 mg PO DAILY 07/04/23 12/18/24 nitroglycerin 0.4 mg sublingual 0.4 mg sublingual Q5MINP PRN Chest 10/12/23 12/18/24 tablet Pain rivaroxaban 20 mg tablet (Xarelto) 20 mg PO QPMWITHMEAL 10/12/23 12/18/24 omeprazole 40 mg capsule,delayed 40 mg PO DAILY 09/09/24 12/18/24 release pramipexole 0.5 mg tablet 0.5 mg PO TID 09/25/24 12/18/24 rimegepant 75 mg disintegrating 75 mg PO ONCE PRN 09/25/24 12/18/24 tablet (Nurtec ODT) testosterone 2 pump topical DAILY 10/15/24 12/18/24 allopurinol 100 mg tablet 100 mg PO DAILY 11/12/24 12/18/24 allopurinol 300 mg tablet 300 mg PO DAILY 11/12/24 12/18/24 oxycodone 10 mg tablet 10 mg PO Q12H 11/12/24 12/18/24 Previous Rx's ?Medication ?Instructions ?Recorded tizanidine 4 mg tablet 8 mg (2 x 4 mg) PO HS PRN Spasms 09/09/24 30 days #0 tabs acetaminophen 325 mg tablet 650 mg (2 x 325 mg) PO Q6HP PRN 09/13/24 Fever Or Mild Pain (1-3) #0 tabs carvedilol 25 mg tablet (Coreg) 25 mg PO BID #60 tabs 09/25/24 sacubitril 24 mg-valsartan 26 mg 1 tab PO BID #60 tabs 09/25/24 tablet (Entresto) torsemide 20 mg tablet 20 mg PO DAILY edema #90 tabs 10/15/24 trazodone 100 mg tablet 100 mg PO HS #90 tabs 10/15/24 alprazolam 0.25 mg tablet (Xanax) 0.25 mg PO TID PRN anxiety #90 tabs 10/16/24 ranolazine 1,000 mg 1,000 mg PO BID #180 tabs 12/03/24 tablet,extended release,12 hr Allergies Allergy/AdvReac Type Severity Reaction Status Date / Time procaine Allergy Unknown Unknown Verified 12/18/24 09:36 allergy reaction empagliflozin (From AdvReac Mild itching Verified 12/18/24 09:36 Jardiance) rosuvastatin AdvReac muscle pain Verified 12/18/24 09:36 [facility] <SHAKIR Ball - Last Filed: 01/31/25 21:56> [facility] Disclaimer: The information contained in this section may have been updated after the patient was seen, as this information can be updated by other users. Medical History (Updated 01/31/25 @ 23:09 by Luzma Camp DO) NYHA class 2 and ACC/AHA stage C acute on chronic systolic congestive heart failure NYHA Class II cardiovascular function Hyperactive bowel sounds Pericardial effusion LEXII (acute kidney injury) Chest trauma Hemochromatosis History of heart attack HFrEF (heart failure with reduced ejection fraction) Paroxysmal atrial fibrillation Right lower lobe pneumonia Shortness of Breath GERD (gastroesophageal reflux disease) RLS (restless legs syndrome) GERMAN (obstructive sleep apnea) Fibromyalgia Arthritis Afib HTN (hypertension) CAD (coronary artery disease) Pulmonary HTN Displacement of cardiac pulse generator (battery), initial encounter Elevated left ventricular end-diastolic pressure (LVEDP) Crescendo angina Cardiomyopathy Near syncope Dizziness MR (mitral regurgitation) Blockage of coronary artery of heart Pericarditis Failure of generator of implanted defibrillator 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 Chronic systolic heart failure Hyperlipemia Surgical History History of carpal tunnel release History of cardiac cath History of cholecystectomy AICD (automatic cardioverter/defibrillator) present Family History Other Heart attack Hyperlipidemia Hypertension Social History Smoking Status: Never smoker second hand exposure: No alcohol intake: never substance use type: denies use current occupational status: retired Travel in the last 8 weeks?: None household members: spouse housing: house current occupational exposures/hazards: No caffeine: Yes Have you lived/traveled outside [place] in past 30 days?: No Contact w/someone who lives/traveled outside US past 30 days?: No Exposure to someone with infectious disease in past 14 days?: No Do you have a fever (greater than 100.4 F or 38 C)?: No Have you tested positive for COVID-19?: No Exposed to someone with COVID-19 in past 14 days?: No Do you have a sore throat?: No Do you have a cough?: No Do you have any weakness?: No Do you have any diarrhea?: No Are you experiencing any unusual bleeding?: No Do you have any muscle aches/pain?: No Do you have any abdominal pain?: No Are you experiencing loss of taste or smell?: No Other Medical History Have you received the Flu Vaccine for this season: No Have you received the Pneumonia Vaccine: Yes <SHAKIR Ball - Last Filed: 01/31/25 21:56> ROS Obtained: Yes All systems reviewed & no additional complaints except as documented Physical Exam <SHAKIR Ball - Last Filed: 01/31/25 21:56> General General appearance: alert and in no apparent distress Comment: Somewhat slow to respond, but arousable Head Head exam: atraumatic and normocephalic Eye Eye exam: Present PERRL and EOMI ENT ENT exam: Present mucous membranes moist Neck Neck exam: Present normal inspection Chest Chest inspection: Present normal inspection and symmetric chest wall rise Respiratory Respiratory exam: Present normal lung sounds bilaterally; Absent respiratory distress Cardiovascular Cardiovascular exam: Present regular rate and normal rhythm Abdominal Exam Abdominal exam: Present soft; Absent tenderness, guarding, rebound or rigidity Extremities Exam Extremities exam: Present normal inspection and other (Mild tenderness palpation to the tib-fib area anteriorly, otherwise neurovascular intact, pelvis is stable to AP and lateral compression.) Back Exam Back exam: Present normal inspection, tenderness and paraspinal tenderness Comment: Paraspinal tenderness to palpation to the cervical spine T-spine, or L-spine, no C-spine T-spine or L-spine spinal tenderness palpation, no obvious deformity, Neurological Exam Neurological exam: Present alert, oriented X3 and other (Moves extremities to command, GCS of 14/15, answers questions appropriately alert oriented to person place and date, some disorientation to time, lift extremities off the bed, no pronator drift, no gross sensation deficit) Psychiatric Psychiatric exam: Present normal affect Skin Skin exam: Present warm and dry Medical Decision Making <SHAKIR Ball - Last Filed: 01/31/25 21:56> Medical Records Medical records reviewed: Yes I reviewed the patient's medical records. Screening: Per USPSTF and CDC recommendations, given the prevalence of disease in our region, it is our hospital?s policy to screen for HIV and viral Hepatitis for all patients aged 18 and over and those with ongoing risk factors. Babatunde Inquiry Pt receiving controlled substance: No Bab[place]unde was queried for this patient: No Vital Signs: 01/31/25 19:49 01/31/25 20:31 01/31/25 21:10 Temperature 98.2 F Temperature Source Oral Pulse Rate 80 80 Pulse Rate [Left] 85 Respiratory Rate 16 Blood Pressure 98/65 L 116/59 L Blood Pressure [Left Arm] 111/61 Blood Pressure Mean 74 70 Blood Pressure Mean [Left Arm] 77 Blood Pressure Source Blood Pressure Source [Left Arm] Automatic Cuff Blood Pressure Position Blood Pressure Position [Left Arm] Sitting 02 Sat by Pulse Oximetry 98 99 100 Oxygen Delivery Method Room Air 01/31/25 21:30 01/31/25 22:00 01/31/25 23:18 Temperature 98.2 F Temperature Source Oral Pulse Rate 80 80 80 Pulse Rate [Left] Respiratory Rate 17 Blood Pressure 119/65 94/60 L 119/64 Blood Pressure [Left Arm] Blood Pressure Mean 73 68 Blood Pressure Mean [Left Arm] Blood Pressure Source Automatic Cuff Blood Pressure Source [Left Arm] Blood Pressure Position Standing Blood Pressure Position [Left Arm] 02 Sat by Pulse Oximetry 97 99 Oxygen Delivery Method Room Air Lab Data Lab results reviewed: Yes I reviewed the patient's lab results. Lab Results 01/31/25 19:45: WBC 5.0, RBC 3.83 L, Hgb 11.8 L, Hct 36.3 L, MCV 94.8 H, MCH 30.8, MCHC 32.5, RDW 14.7, Plt Count 119 L, MPV 10.1, Neut % (Auto) 74.5, Lymph % (Auto) 12.9, [place] % (Auto) 8.4, Eos % (Auto) 3.6, Baso % (Auto) 0.4, Neut # (Auto) 3.7, Lymph # (Auto) 0.7, [place] # (Auto) 0.4, Eos # (Auto) 0.2, Baso # (Auto) 0.0, PT 11.9, INR 1.08, Sodium 139, Potassium 4.2, Chloride 100, Carbon Dioxide 32 H, Anion Gap 11.2, BUN 43 H, Creatinine 1.90 H, Estimated Creat Clear 35, Estimated GFR 34 L, Est GFR ( Amer) 42 L, Glucose 97, Calcium 8.7, Total Bilirubin 0.6, AST 31, ALT 18, Alkaline Phosphatase 60, Troponin I < 0.01, NT-Pro-B Natriuret Pep 2170 H, Total Protein 6.5, Albumin 4.1, Globulin 2.4, Albumin/Globulin Ratio 1.7 01/31/25 22:15: Urine Color Yellow, Urine Appearance Clear, Urine pH 6.0, Ur Specific [place] 1.015, Urine Protein Negative, Urine Glucose (UA) Negative, Urine Ketones Negative, Urine Blood Negative, Urine Nitrate Negative, Urine Bilirubin Negative, Urine Urobilinogen 0.2, Ur Leukocyte Esterase Trace, Urine RBC None, Urine WBC Occasional, Ur Squamous Epith Cells Occasional, Urine Bacteria None 01/31/25 19:45 01/31/25 19:45 Orders (Tests/Meds): ED MEDICATIONS Discontinued Medications Generic Name Dose Route Start Last Admin Trade Name Freq PRN Reason Stop Dose Admin Acetaminophen 1,000 mg 01/31/25 21:22 01/31/25 21:30 Acetaminophen 1,000mg/100ml Vial IV 01/31/25 21:23 1,000 mg ONCE ONE Administration Lactated Ringer's 1,000 mls @ 999 mls/hr 01/31/25 21:50 01/31/25 21:53 Lactated Ringer's 1000 Ml Bag IV 01/31/25 22:50 999 mls/hr .Q1H1M ONE Administration ORDERS Category Date Time Status CT cervical spine wo con Stat Cat Scan 01/31/25 20:[address] head/brain wo con Stat Cat Scan 01/31/25 20:[address] lumbar spine wo con Stat Cat Scan 01/31/25 20:[address] thoracic spine wo con Stat Cat Scan 01/31/25 20:18 Completed Pelvis XR 1-2 views [XR pelvis 1-2V] Stat Exams 01/31/25 20:19 Completed XR chest portable Stat Exams 01/31/25 20:19 Completed XR knee RT 3V Stat Exams 01/31/25 20:19 Completed XR tibia fibula RT 2V Stat Exams 01/31/25 20:19 Completed Complete Blood Count Auto Diff Stat Lab 01/31/25 19:45 Completed Comprehensive Metabolic Panel Stat Lab 01/31/25 19:45 Completed NT Pro Brain Natriuretic Pep. Stat Lab 01/31/25 19:45 Completed PT INR [Prothrombin Time INR] Stat Lab 01/31/25 19:45 Completed Troponin I Stat Lab 01/31/25 19:45 Completed Urinalysis and Microscopic Stat Lab 01/31/25 22:15 Completed Medical Decision Narrative: 79-year-old male presents the emergency department with a unwitnessed fall, differential diagnose include but not limited to, acute SDH, traumatic SAH, cervicalgia, soft tissue injury, abrasion, knee fracture, knee sprain/strain, vasovagal syncope, orthostatic/postural syncope, cervical spine fracture, cardiogenic syncope, situational syncope, cardiac arrhythmia, electrolyte disturbance, C-spine fracture, L-spine fracture, back strain/sprain among others. Will obtain basic laboratory studies, EKG, proBNP, coags, troponin, urinalysis,, will obtain CT head without contrast, CT cervical spine thoracic and lumbar spine without contrast, will obtain x-ray of the chest, right knee, right tib-fib and pelvis for further evaluation of characterization. CBC is unremarkable, except for thrombocytopenia 119, which appears chronic patient does have past medical history consist of polycythemia vera CMP is notable for acute kidney injury with a creatinine of 1.9, BUN of 43, this appears to be superimposed on CKD based on patient's previous creatinine and BUN levels Coags within normal limits Troponin within normal limits at less than 0.01, proBNP is mildly elevated at 2170 I was notified by nursing staff that the patient was complaining of some pain, will give IV Tylenol 1000 mg for pain.\ I reviewed the patient's CT cervical spine without contrast along the corresponding radiological report, no acute cervical spine findings identified I reviewed the patient's CT head without contrast along the corresponding radiologic report, no acute intracranial abnormality I reviewed the patient's CT lumbar spine without contrast along the corresponding radiological report, no fracture or bone destruction, right lateral degenerative subluxation of L2 on L3 by 12.7 mm coronal, to space narrowing and endplate irregularity and discogenic sclerosis at L2-L3 coronal image, if patient has persistent pain MRI may be helpful, degenerative anterior subluxation L4-L5 by 3 mm on sagittal image, spine stimulator electrodes in place, vacuum disc phenomena at L3-L4 L4-L5 levels, aorta demonstrates moderate atherosclerotic calcification. I reviewed the patient's T-spine CT scan without contrast along the corresponding radiologic report, spinal alignment is normal, no fracture or bone discharge, minor schmorls node type endplate deformities in the thoracic spine at T2, and T3 superior endplate and C6 endplate, spine stimulator electrodes in place, partially visualized multilevel degenerative changes cervical spine. I reviewed the patient's right knee x-ray along the corresponding radiologic report, no acute findings. I reviewed the patient's pelvic x-ray along the corresponding radiologic report, no acute findings. I reviewed the patient's tib-fib x-ray along the corresponding radiologic report, no acute findings. I reviewed the patient's chest x-ray along the corresponding radiologic report, no acute findings. Will give 1 L LR IV for acute kidney injury. I discussed this patient's case with the attending physician Dr. Camp, at shift change, she will be assuming the patient's care/workup, disposition is pending walk test and reevaluation after IV fluid administration. <Luzma Camp, DO - Last Filed: 02/01/25 00:05> Vital Signs: 01/31/25 19:49 01/31/25 20:31 01/31/25 21:10 Temperature 98.2 F Temperature Source Oral Pulse Rate 80 80 Pulse Rate [Left] 85 Respiratory Rate 16 Blood Pressure 98/65 L 116/59 L Blood Pressure [Left Arm] 111/61 Blood Pressure Mean 74 70 Blood Pressure Mean [Left Arm] 77 Blood Pressure Source Blood Pressure Source [Left Arm] Automatic Cuff Blood Pressure Position Blood Pressure Position [Left Arm] Sitting 02 Sat by Pulse Oximetry 98 99 100 Oxygen Delivery Method Room Air 01/31/25 21:30 01/31/25 22:00 01/31/25 23:18 Temperature 98.2 F Temperature Source Oral Pulse Rate 80 80 80 Pulse Rate [Left] Respiratory Rate 17 Blood Pressure 119/65 94/60 L 119/64 Blood Pressure [Left Arm] Blood Pressure Mean 73 68 Blood Pressure Mean [Left Arm] Blood Pressure Source Automatic Cuff Blood Pressure Source [Left Arm] Blood Pressure Position Standing Blood Pressure Position [Left Arm] 02 Sat by Pulse Oximetry 97 99 Oxygen Delivery Method Room Air Lab Data Lab Results 01/31/25 19:45: WBC 5.0, RBC 3.83 L, Hgb 11.8 L, Hct 36.3 L, MCV 94.8 H, MCH 30.8, MCHC 32.5, RDW 14.7, Plt Count 119 L, MPV 10.1, Neut % (Auto) 74.5, Lymph % (Auto) 12.9, [place] % (Auto) 8.4, Eos % (Auto) 3.6, Baso % (Auto) 0.4, Neut # (Auto) 3.7, Lymph # (Auto) 0.7, [place] # (Auto) 0.4, Eos # (Auto) 0.2, Baso # (Auto) 0.0, PT 11.9, INR 1.08, Sodium 139, Potassium 4.2, Chloride 100, Carbon Dioxide 32 H, Anion Gap 11.2, BUN 43 H, Creatinine 1.90 H, Estimated Creat Clear 35, Estimated GFR 34 L, Est GFR ( Amer) 42 L, Glucose 97, Calcium 8.7, Total Bilirubin 0.6, AST 31, ALT 18, Alkaline Phosphatase 60, Troponin I < 0.01, NT-Pro-B Natriuret Pep 2170 H, Total Protein 6.5, Albumin 4.1, Globulin 2.4, Albumin/Globulin Ratio 1.7 01/31/25 22:15: Urine Color Yellow, Urine Appearance Clear, Urine pH 6.0, Ur Specific [place] 1.015, Urine Protein Negative, Urine Glucose (UA) Negative, Urine Ketones Negative, Urine Blood Negative, Urine Nitrate Negative, Urine Bilirubin Negative, Urine Urobilinogen 0.2, Ur Leukocyte Esterase Trace, Urine RBC None, Urine WBC Occasional, Ur Squamous Epith Cells Occasional, Urine Bacteria None Orders (Tests/Meds): ED MEDICATIONS Discontinued Medications Generic Name Dose Route Start Last Admin Trade Name Campos PRN Reason Stop Dose Admin Acetaminophen 1,000 mg 01/31/25 21:22 01/31/25 21:30 Acetaminophen 1,000mg/100ml Vial IV 01/31/25 21:23 1,000 mg ONCE ONE Administration Lactated Ringer's 1,000 mls @ 999 mls/hr 01/31/25 21:50 01/31/25 21:53 Lactated Ringer's 1000 Ml Bag IV 01/31/25 22:50 999 mls/hr .Q1H1M ONE Administration ORDERS Category Date Time Status CT cervical spine wo con Stat Cat Scan 01/31/25 20:[address] head/brain wo con Stat Cat Scan 01/31/25 20:[address] lumbar spine wo con Stat Cat Scan 01/31/25 20:[address] thoracic spine wo con Stat Cat Scan 01/31/25 20:18 Completed Pelvis XR 1-2 views [XR pelvis 1-2V] Stat Exams 01/31/25 20:19 Completed XR chest portable Stat Exams 01/31/25 20:19 Completed XR knee RT 3V Stat Exams 01/31/25 20:19 Completed XR tibia fibula RT 2V Stat Exams 01/31/25 20:19 Completed Complete Blood Count Auto Diff Stat Lab 01/31/25 19:45 Completed Comprehensive Metabolic Panel Stat Lab 01/31/25 19:45 Completed NT Pro Brain Natriuretic Pep. Stat Lab 01/31/25 19:45 Completed PT INR [Prothrombin Time INR] Stat Lab 01/31/25 19:45 Completed Troponin I Stat Lab 01/31/25 19:45 Completed Urinalysis and Microscopic Stat Lab 01/31/25 22:15 Completed Medical Decision Narrative: 79-year-old male presents the emergency department with a unwitnessed fall, differential diagnose include but not limited to, acute SDH, traumatic SAH, cervicalgia, soft tissue injury, abrasion, knee fracture, knee sprain/strain, vasovagal syncope, orthostatic/postural syncope, cervical spine fracture, cardiogenic syncope, situational syncope, cardiac arrhythmia, electrolyte disturbance, C-spine fracture, L-spine fracture, back strain/sprain among others. Will obtain basic laboratory studies, EKG, proBNP, coags, troponin, urinalysis,, will obtain CT head without contrast, CT cervical spine thoracic and lumbar spine without contrast, will obtain x-ray of the chest, right knee, right tib-fib and pelvis for further evaluation of characterization. CBC is unremarkable, except for thrombocytopenia 119, which appears chronic patient does have past medical history consist of polycythemia vera CMP is notable for acute kidney injury with a creatinine of 1.9, BUN of 43, this appears to be superimposed on CKD based on patient's previous creatinine and BUN levels Coags within normal limits Troponin within normal limits at less than 0.01, proBNP is mildly elevated at 2170 I was notified by nursing staff that the patient was complaining of some pain, will give IV Tylenol 1000 mg for pain.\ I reviewed the patient's CT cervical spine without contrast along the corresponding radiological report, no acute cervical spine findings identified I reviewed the patient's CT head without contrast along the corresponding radiologic report, no acute intracranial abnormality I reviewed the patient's CT lumbar spine without contrast along the corresponding radiological report, no fracture or bone destruction, right lateral degenerative subluxation of L2 on L3 by 12.7 mm coronal, to space narrowing and endplate irregularity and discogenic sclerosis at L2-L3 coronal image, if patient has persistent pain MRI may be helpful, degenerative anterior subluxation L4-L5 by 3 mm on sagittal image, spine stimulator electrodes in place, vacuum disc phenomena at L3-L4 L4-L5 levels, aorta demonstrates moderate atherosclerotic calcification. I reviewed the patient's T-spine CT scan without contrast along the corresponding radiologic report, spinal alignment is normal, no fracture or bone discharge, minor schmorls node type endplate deformities in the thoracic spine at T2, and T3 superior endplate and C6 endplate, spine stimulator electrodes in place, partially visualized multilevel degenerative changes cervical spine. I reviewed the patient's right knee x-ray along the corresponding radiologic report, no acute findings. I reviewed the patient's pelvic x-ray along the corresponding radiologic report, no acute findings. I reviewed the patient's tib-fib x-ray along the corresponding radiologic report, no acute findings. I reviewed the patient's chest x-ray along the corresponding radiologic report, no acute findings. Will give 1 L LR IV for acute kidney injury. I discussed this patient's case with the attending physician Dr. Camp, at shift change, she will be assuming the patient's care/workup, disposition is pending walk test and reevaluation after IV fluid administration. Luzma Camp, I assumed care of this patient at 2200. Patient had a mild LEXII however patient was given IV fluids in the emergency department. Patient's workup was otherwise negative for acute findings. Given patient's negative workup for acute traumatic injuries low concern for cardiac injury or cardiac pathology at this time. Patient's blood pressure was improved after liter of IV fluids, patient was able to ambulate in the emergency department without difficulties. At this time I felt the patient was appropriate for discharge home. Return precautions were discussed and patient was discharged in stable condition. Critical Care <SHAKIR Ball - Last Filed: 01/31/25 21:56> Critical Care Time Critical Care Time: No
--- NOTE | 2025-01-31 20:18 | CT_ITS ---
PROCEDURE INFORMATION: Exam: CT Lumbar Spine Without Contrast Exam date and time: 01/31/2025 8:57 PM Age: 79 years old Clinical indication: Injury or trauma; Fall; Blunt trauma (contusions or hematomas); Additional info: Fall, hit head, back pain, on anticoags TECHNIQUE: Imaging protocol: Computed tomography of the lumbar spine without contrast. Radiation optimization: All CT scans at this facility use at least one of these dose optimization techniques: automated exposure control; mA and/or kV adjustment per patient size (includes targeted exams where dose is matched to clinical indication); or iterative reconstruction. COMPARISON: CT THORACIC SPINE WO CON 01/31/2025 8:55 PM FINDINGS: Tubes, catheters and devices: Spine stimulator electrodes in place. Bones/joints: No fracture or bone destruction. Right lateral subluxation of L2 on L3 by 12.7 mm coronal image 1001/32. Mild degenerative anterior subluxation of L4 on L5 by 3 mm sagittal image 1002/36. . Disc space narrowing and endplate irregularity and discogenic sclerosis at L2-L3 coronal image 1001/34 and sagittal image 1002/33. Vacuum disc phenomenon L3-L4 and L4-L5 levels. Vasculature: The aorta demonstrates moderate atherosclerotic calcification. Soft tissues: Unremarkable. IMPRESSION: 1. No fracture or bone destruction. 2. Right lateral degenerative subluxation of L2 on L3 by 12.7 mm coronal image 1001/32. 3. Disc space narrowing and endplate irregularity and discogenic sclerosis at L2-L3 coronal image 1001/34 and sagittal image 1002/33. If the patient has persistent pain MRI may be helpful. 4. Mild degenerative anterior subluxation of L4 on L5 by 3 mm sagittal image 1002/36. 5. Spine stimulator electrodes in place. 6. Vacuum disc phenomenon L3-L4 and L4-L5 levels. 7. The aorta demonstrates moderate atherosclerotic calcification.
--- NOTE | 2025-01-31 20:18 | CT_ITS ---
PROCEDURE INFORMATION: Exam: CT Head Without Contrast Exam date and time: 01/31/2025 8:52 PM Age: 79 years old Clinical indication: Injury or trauma; Fall; Blunt trauma (contusions or hematomas); Additional info: Fall, head trauma TECHNIQUE: Imaging protocol: Computed tomography of the head without contrast. Radiation optimization: All CT scans at this facility use at least one of these dose optimization techniques: automated exposure control; mA and/or kV adjustment per patient size (includes targeted exams where dose is matched to clinical indication); or iterative reconstruction. COMPARISON: CT HEAD/BRAIN WO CON 09/12/2024 12:11 PM FINDINGS: Brain: No hemorrhage. Unremarkable white matter. No mass effect. Cerebral ventricles: No ventriculomegaly. Paranasal sinuses: Visualized sinuses are unremarkable. No fluid levels. Mastoid air cells: Visualized mastoid air cells are well aerated. Bones: Unremarkable. No acute fracture. Soft tissues: Unremarkable. IMPRESSION: No acute intracranial abnormality.
--- NOTE | 2025-01-31 20:18 | CT_ITS ---
PROCEDURE INFORMATION: Exam: CT Thoracic Spine Without Contrast Exam date and time: 01/31/2025 8:55 PM Age: 79 years old Clinical indication: Injury or trauma; Fall; Blunt trauma (contusions or hematomas); Additional info: Fall, hit head, back pain, on anticoags TECHNIQUE: Imaging protocol: Computed tomography of the thoracic spine without contrast. Radiation optimization: All CT scans at this facility use at least one of these dose optimization techniques: automated exposure control; mA and/or kV adjustment per patient size (includes targeted exams where dose is matched to clinical indication); or iterative reconstruction. COMPARISON: CT THORACIC SPINE WO CON 01/31/2025 8:55 PM FINDINGS: Tubes, catheters and devices: Spine stimulator electrodes in place. Bones/joints: Spine alignment is normal. No fracture or bone destruction. Minor Schmorl's node type endplate deformities in the thoracic spine at T2 and T3 superior endplate and C6 superior endplate image 1002/56. Partially visualized multilevel degenerative change of the cervical spine. Soft tissues: Unremarkable. IMPRESSION: 1. Spine alignment is normal. 2. No fracture or bone destruction. 3. Minor Schmorl's node type endplate deformities in the thoracic spine at T2 and T3 superior endplate and C6 superior endplate image 1002/56. 4. Spine stimulator electrodes in place. 5. Partially visualized multilevel degenerative change of the cervical spine.
--- NOTE | 2025-01-31 20:18 | CT_ITS ---
PROCEDURE INFORMATION: Exam: CT Cervical Spine Without Contrast Exam date and time: 01/31/2025 8:53 PM Age: 79 years old Clinical indication: Injury or trauma; Fall; Blunt trauma; Additional info: Fall, hit head, back pain, on anticoags TECHNIQUE: Imaging protocol: Computed tomography of the cervical spine without contrast. Radiation optimization: All CT scans at this facility use at least one of these dose optimization techniques: automated exposure control; mA and/or kV adjustment per patient size (includes targeted exams where dose is matched to clinical indication); or iterative reconstruction. COMPARISON: CT SOFT TISSUE NECK WO CON 09/12/2024 12:08 PM FINDINGS: Bones: No acute fracture. Normal alignment. Multilevel degenerative disc and joint space changes most pronounced at C5/6 and C6/7 levels. Vertebral body heights grossly preserved. Lungs: Unremarkable. Soft tissues: Unremarkable. IMPRESSION: No acute cervical spine findings identified.
--- NOTE | 2025-01-31 20:19 | XR_ITS ---
PROCEDURE INFORMATION: Exam: XR Right Tibia and Fibula Exam date and time: 01/31/2025 9:00 PM Age: 79 years old Clinical indication: Injury or trauma; Fall; Blunt trauma; Lower leg; Right; Additional info: Fall, right leg pain TECHNIQUE: Imaging protocol: Radiologic exam of the right tibia and fibula. Views: 2 views. COMPARISON: CR XR KNEE RT 3V 01/31/2025 9:00 PM FINDINGS: Bones/joints: Normal. Soft tissues: Normal. Vasculature: Vascular calcifications. IMPRESSION: No acute findings.
--- NOTE | 2025-01-31 20:19 | XR_ITS ---
PROCEDURE INFORMATION: Exam: XR Chest Exam date and time: 01/31/2025 9:00 PM Age: 79 years old Clinical indication: Injury or trauma; Fall; Blunt trauma (contusions or hematomas) TECHNIQUE: Imaging protocol: Radiologic exam of the chest. Views: 1 view. COMPARISON: CT ANGIO CHEST PE PROTOCOL 09/08/2024 3:43 PM FINDINGS: Tubes, catheters and devices: Pacer/AICD electrodes. Spine stimulator electrodes identified midthoracic region. Lungs: No focal infiltrates. Normal pulmonary vessels. Pleural spaces: Unremarkable. No pleural effusion. No pneumothorax. Heart/Mediastinum: Moderate cardiomegaly. Bones/joints: Unremarkable. IMPRESSION: No acute findings.
--- NOTE | 2025-01-31 20:19 | XR_ITS ---
PROCEDURE INFORMATION: Exam: XR Pelvis Exam date and time: 01/31/2025 9:00 PM Age: 79 years old Clinical indication: Injury or trauma; Fall; Blunt trauma (contusions or hematomas); Bilateral; Pelvic region TECHNIQUE: Imaging protocol: Radiologic exam of the pelvis. Views: 1 or 2 view. COMPARISON: CT ANGIO ABDOMEN PELVIS 09/08/2024 3:43 PM FINDINGS: Tubes, catheters and devices: Spine stimulator battery pack and electrodes identified. Bones/joints: Unremarkable. No acute fracture. Soft tissues: Unremarkable. Vasculature: Vascular calcifications. IMPRESSION: No acute findings.
--- NOTE | 2025-01-31 20:19 | XR_ITS ---
PROCEDURE INFORMATION: Exam: XR Right Knee Exam date and time: 01/31/2025 9:00 PM Age: 79 years old Clinical indication: Injury or trauma; Fall; Blunt trauma; Knee; Right; Additional info: Fall, right knee pain TECHNIQUE: Imaging protocol: Radiologic exam of the right knee. Views: 3 views. COMPARISON: CR XR TIBIA FIBULA RT 2V 01/31/2025 9:00 PM FINDINGS: Bones/joints: Normal. Soft tissues: Normal. Vasculature: Vascular calcifications. IMPRESSION: No acute findings.
[2025-01-31 20:26] LABS: Hematocrit 36.3 % (42.0-52.0); Hemoglobin 11.8 g/dL (14.1-18.0); Immature Granulocytes % 0.2 %; Mean Corpuscular HGB Conc 32.5 g/dL (31.8-35.4); Mean Corpuscular Hemoglobin 30.8 pg (27.0-31.2); Mean Corpuscular Volume 94.8 fl (80-94); Nucleated Red Blood Cells % 0 %; Platelet Count 119 K/mm3 (142-424); Red Blood Count 3.83 M/mm3 (4.60-6.20); Red Cell Distribution Width-SD 50.7 fL; White Blood Count 5.0 K/mm3 (4.8-10.8)
[2025-01-31 20:27] LABS: Albumin Level 4.1 g/dl (3.5-5.0); Chloride 100 mmol/L (98-107); Sodium 139 mmol/L (136-145)
[2025-01-31 20:28] LABS: Potassium 4.2 mmoL/L (3.5-5.1)
[2025-01-31 20:30] LABS: Alanine Aminotransferase 18 U/L (12-78); Albumin/Globulin Ratio 1.7 (1.1-1.8); Alkaline Phosphatase 60 U/L (38-126); Anion Gap 11.2 mEq/L (5-15); Aspartate Amino Transferase 31 U/L (17-59); Bilirubin,Total 0.6 mg/dl (0.2-1.3); Blood Urea Nitrogen 43 mg/dl (9-20); Carbon Dioxide 32 mmol/L (22.0-30.0); Creatinine Clearance Estimated 35 mL/min (50-200); Creatinine,Serum 1.90 mg/dl (0.66-1.25); Estimated Glomerular Filt Rate 34 ml/min (>60); GFR (African American) 42 ML/MIN (>60); Globulin 2.4 g/dL (1.3-3.2); Total Protein,Serum 6.5 g/dl (6.3-8.2)
[2025-01-31 20:31] VITALS: BP 98/65; PULSE 80; O2SAT 99
[2025-01-31 20:31] LABS: Calcium 8.7 mg/dl (8.4-10.2); Glucose 97 mg/dl (74-100)
[2025-01-31 20:33] LABS: INR 1.08 (0.9-1.1); Prothrombin Time 11.9 seconds (10.1-12.5)
[2025-01-31 20:40] LABS: NT Pro Brain Natriuretic Pep. 2170 pg/mL (0-450)
--- NOTE | 2025-01-31 20:41 | ECG_ITS ---
APPROVED REPORT Exam: Resting ECG HR:80 bpm ECG Measurements Heart Rate 80 AXES LA 237 P 126 QRSd 122 QRS 62 QT 404 T -86 QTc 439 Conclusion Atrial paced rate of [address] or T wave changes concerning for ischemia Electronically signed by : Luzma Camp, 02/01/2025 01:04:48
[2025-01-31 20:47] LABS: Troponin I < 0.01 ng/ml (0.00-0.034)
[2025-01-31 21:10] VITALS: BP 116/59; PULSE 80; O2SAT 100
[2025-01-31 21:30] VITALS: BP 119/65; PULSE 80; O2SAT 97
[2025-01-31] MEDS: ACETAMINOPHEN 1,000MG/100ML VIAL 1000 MG IV (21:30)
[2025-01-31] MEDS: LACTATED RINGERS 1000ML 1,000 ML 999 ML IV (21:53)
[2025-01-31 22:00] VITALS: BP 94/60; PULSE 80; O2SAT 99
[2025-01-31 22:19] LABS: Microscopic, Urine URINE MICROSCOPIC (MICROSCOPIC)
[2025-01-31 22:20] LABS: Bilirubin,Urine Negative (Negative); Color,Urine YELLOW (Yellow); Glucose,Urine (UA) Negative (Negative); Ketones,Urine Negative (Negative); Leukocyte Esterase,Urine TRACE (Negative); PH,Urine 6.0 (5.0-8.5); Protein,Urine Negative (Negative); Specific Gravity, Urine 1.015 (1.005-1.030); Urobilinogen,Urine 0.2 EU/dl (0.2)
[2025-01-31 22:35] LABS: Squamous Epithelial Cell,Urine Occasional #/hpf (0-5); WBC,Urine Occasional #/hpf (0-3)
[2025-01-31 23:18] VITALS: BP 119/64; PULSE 80; RESP 17; TEMP 36.8; O2SAT 98
== END 2025-01-31 23:20 | disposition home or self-care (01) ==
PROVIDERS: Physician Assistant; Emergency Provider Student in an Organized Health Care Education/Training Program; PCP Family Medicine
DX: R51.9 Headache, unspecified (principal); M54.2 Cervicalgia; M54.6 Pain in thoracic spine; I10 Essential (primary) hypertension; E78.5 Hyperlipidemia, unspecified; Z79.01 Long term (current) use of anticoagulants; Z86.79 Personal history of other diseases of the circulatory system; W19.XXXA Unspecified fall, initial encounter
CPT/HCPCS: 70450; 71045; 72125; 72128; 72131; 72170; 73562; 73590; 80053; 81001; 83880; 84484; 85025; 85610; 93005; 96361; 96374; 99285; J0131; J7120

== ENCOUNTER 2025-02-05 11:53 | Outpatient (CLI) | payer MEDICARE, SELFPAY ==
--- OUTSIDE RECORDS SUMMARY | 2025-02-05 11:56 | XMS_ITS ---
Author Name Interface, [id number] lity Address [address] [place], [place] [id number] [facility] Address [address] [place], [place] [id number] Plan Reason for Visit Encounters Diagnostic Results Medications Problems Vital Signs
--- OUTSIDE RECORDS SUMMARY | 2025-02-05 11:56 | XMS_ITS | Clinical Summary ---
Author Organization [facility] Address [address] [place] [address] Care Team Providers Care Programmer Operator Numerical Control Name Role Phone Vitaly Suazo MD Primary Care Provider [phone] Allergies Active Allergy Reactions Criticality Noted Date [...] Medical Office Building Echo Lab [address], [address] [place] [address] 08/21/2025 2:30 PM EST Office Visit [facility] [place] [address], [address] [place] [address] Analy Jain PA [address] [place] [id number] Health Maintenance Due Date Last Done Comments [facility]-Hepatitis C Screening 1945 [facility]-Medicare Annual Wellness (AWV) 1945 [facility]-/Child/Adol SDOH Screenings 1945 [facility]- SDOH Screenings 1964 [facility]-Adult SDOH Screenings 1964 [facility]-Zoster Vaccines (1 of 2) 1996 [facility]-RSV Vaccine: 60+ Years or (1 - 1-dose 75+ series) 2021 ETP-[id number]-20 Vaccine ( season) 2024 05/26/2022, 04/21/2021, 09/12/2020, [...] this topic Medical Devices Implanted Type Area Automotive Lube Technician Device Identifier Shelf Expiration Date Model / Serial / Lot Kit Mitrial Clip G4 - [id number] Implanted:Qty: 1 on 08/16/2024 by Stewart Rodgers MD at [facility]-[id number] 10/22/2025 [id number] / / [id number] Insurance [facility] Advance Directives * Full Code (Latest Code Status on File) Date Activated Date Inactivated Comments 08/16/2024 10:02 AM 08/17/2024 11:11 AM Question Answer Comments Patient has decision-making capacity? Yes Care Teams Programmer Operator Numerical Control Relationship Specialty Start Date End Date Vitaly Suazo MD [address] [place] [address] PCP - General 02/03/24
--- OUTSIDE RECORDS SUMMARY | 2025-02-05 11:56 | XMS_ITS | CCD ---
Author Name Interface, [id number] lity Address [address] [id number] Organization [facility] Address [address] [place] [address] Care Team Providers Care Child Day Care Provider Name Role Phone Linda SPICER, Phan Lou Unavailable Unavailable Reason for Visit Functional Status Medications Problems Social History
--- OUTSIDE RECORDS SUMMARY | 2025-02-05 11:56 | XMS_ITS | Clinical Summary ---
Author Organization [facility] Address [address] [address] Phone Care Team Providers Care Service Member Name Role Phone Vitaly Suazo Primary Care Provider [phone] Allergies Active Allergy Reactions Criticality Noted Date [...] daily. Active naloxone (NARCAN) 2 mg/actuation Nasl [place], Non-Aerosol by Nasal route. Ac tive nitroGLYCERIN [...] 0 Active Syringe with Needle, Disp, (SYRINGE 3CC/94ML7-5/2 ) 3 mL 21 gauge x 1 /2 [facility] to give testosterone shots every [...] to complete this topic Insurance Care Teams Service Member Relationship Specialty Start Date End Date Vitaly Suazo [address] [place] [address] PCP - General Family Medicine 12/18/19
--- OUTSIDE RECORDS SUMMARY | 2025-02-05 11:56 | XMS_ITS ---
Author Name Interface, [id number] lity Address [address] [place], [place] [id number] [facility] Address [address] [place], [place] [phone] Plan Reason for Visit Immunizations Diagnostic Results Medications Problems Vital Signs Notes Section
--- OUTSIDE RECORDS SUMMARY | 2025-02-05 11:56 | XMS_ITS | Clinical Summary ---
Author Organization [facility] Address [address] [place] [address] Care Team Providers Care Slide Fastener Repairer Name Role Phone Unavailable Primary Care Provider [...]
--- OUTSIDE RECORDS SUMMARY | 2025-02-05 11:56 | XMS_ITS ---
Author Name Interface, [id number] lity Address [address] [place], [place] [id number] [facility] Address [address] [place], [place] [phone] Plan Reason for Visit Encounters Diagnostic Results Medications Problems Vital Signs
--- OUTSIDE RECORDS SUMMARY | 2025-02-05 11:56 | XMS_ITS | CCD ---
Author Name Interface, [id number] lity Address [address] [place] [address] Organization [facility] Address [address] [place] [address] Care Team Providers Care Transportation Economics Teacher Name Role Phone Phan Mckeon MD Unavailable [...]
--- OUTSIDE RECORDS SUMMARY | 2025-02-05 11:56 | XMS_ITS ---
Author Name Interface, [id number] lity Address [address] [place], [place] [id number] [facility] Address [address] [place], [place] [phone] Plan Reason for Visit Immunizations Diagnostic Results Medications Problems Vital Signs Notes Section
--- OUTSIDE RECORDS SUMMARY | 2025-02-05 11:56 | XMS_ITS ---
Author Name Interface, [id number] lity Address [address] [place] [address] Organization [facility] Address [address] [place] [address] Plan Date Type Value 11/27/2019 APPOINTMENT 6 mo fu 11/27/2019 APPOINTMENT 6 mo fu 11/27/2019 APPOINTMENT CBC w/ auto diff 09/18/2019 APPOINTMENT 6 mo fu 09/18/2019 APPOINTMENT 6 mo fu 03/20/2019 APPOINTMENT 6mo md fu 03/20/2019 APPOINTMENT 6mo md fu 03/20/2019 LABORDER CBC w/ auto diff 11/27/2019 LABORDER CBC w/ auto diff Reason for Visit CBC w/ auto diff Encounters Date Name 03/20/2019 Polycythemia Diagnostic Results Date Type Test Units Lower Limit Upper Limit Result Flag Comments Status Ordered By Specimen Source Lab Address 03/20 Lab Repor t See elastic attacher zigzag d Medications Date Name Route Dose Frequency [...] (disorder) Active Vital Signs Date Type Value 03/20/2019 Body Temperature 98.10 03/20/2019 Heart Beat 68.00 03/20/2019 Respiratory Rate 14.00 03/20/2019 Intravascular Systolic 146 03/20/2019 Intravascular Diastolic 80 03/20/2019 BSA 2.06 03/20/2019 Weight 203.80 03/20/2019 Height 65.00 03/20/2019 BMI 33.91 03/20/2019 Pain Scale 0.00
--- OUTSIDE RECORDS SUMMARY | 2025-02-05 11:56 | XMS_ITS ---
Author Name Interface, [id number] lity Address [address] [place], [place] [phone] [facility] Address [address] [place], [place] [phone] Plan Reason for Visit Encounters Diagnostic Results Medications Problems Vital Signs
[2025-02-05 12:39] LABS: Amphetamine/Metha Screen,Urine Negative ng/ml (<1000); Benzodiazepines Screen,Urine Negative ng/ml (<200)
[2025-02-05 12:40] LABS: Barbiturates Screen,Urine Negative ng/ml (<200)
[2025-02-05 12:42] LABS: Methadone Screen,Urine Negative ng/ml (<300)
[2025-02-05 12:43] LABS: Opiate Screen,Urine Positive ng/ml (<300)
[2025-02-05 12:44] LABS: Phencyclidine Screen,Urine Negative ng/ml (<25)
== END 2025-02-05 23:59 | disposition home or self-care (01) ==
LOC: LAB 11:54
PROVIDERS: PCP Family Medicine; Visit Provider Internal Medicine
DX: Z79.01 Long term (current) use of anticoagulants (principal)
CPT/HCPCS: 80307

== ENCOUNTER 2025-03-14 08:35 | Day surgery (SDC) | payer MEDICARE, SELFPAY ==
[2025-03-14] VITALS (12 sets, daily range): BP systolic 105–151; BP diastolic 52–75; PULSE 80–91; RESP 18–20; TEMP 36.6; O2SAT 95–100; BMI 27.4
--- NOTE | 2025-03-14 07:13 | IR_ITS ---
APPROVED REPORT Patient Location: Inpatient [facility] Operator: Chino Sauceda, RT (R) PROCEDURES Pulmonary Angiogram Cordella device placement Right heart cath INDICATION Congestive heart failure Informed consent was obtained prior to the procedure. COMPLICATIONS NONE Estimated Blood Loss: LESS THAN 10 ML TECHNIQUE One percent lidocaine was used to anesthetize the right groin. The right femoral vein was accessed via the Seldinger technique. A 7-Vietnamese sheath was placed in the right femoral vein. Vein dilated and upsized to 14 fr sheath. [place] catheter inserted into femoral vein and tracked up to the right pulmonary artery. Right heart pressures obtained and continuously monitored. Angiogram taken to find target area for device. Distal pulmonary artery wired, swan catheter removed. Cordella device catheter inserted over the wire and guided to target placement. Placement confirmed under fluoro in two positions, device deployed. Catheter removed. Sheath removed, hemostasis achieved with Z-stitch and manual pressure, sterile dressing. Patient transferred to outpatient holding area. PA pressure: 38/21/30 Endotronix, Cordella Sensor Delivery Kit Serial number: [id number] IMPRESSION Successful Pulmonary Angiogram Successful Cordella device placement Successful right heart cath PLAN 1. Post op wound care Electronically signed by : Dell Fish MD 03/25/2025 11:34:33
[2025-03-14 09:14] LABS: Chloride 101 mmol/L (98-107); Hematocrit 37.3 % (42.0-52.0); Hemoglobin 12.5 g/dL (14.1-18.0); Immature Granulocytes % 0.3 %; Mean Corpuscular HGB Conc 33.5 g/dL (31.8-35.4); Mean Corpuscular Hemoglobin 29.8 pg (27.0-31.2); Mean Corpuscular Volume 88.8 fl (80-94); Nucleated Red Blood Cells % 0 %; Platelet Count 145 K/mm3 (142-424); Red Blood Count 4.20 M/mm3 (4.60-6.20); Red Cell Distribution Width-SD 45.5 fL; Sodium 137 mmol/L (136-145); White Blood Count 6.5 K/mm3 (4.8-10.8)
[2025-03-14 09:15] LABS: Potassium 4.5 mmoL/L (3.5-5.1)
[2025-03-14 09:17] LABS: Blood Urea Nitrogen 37 mg/dl (9-20); Creatinine Clearance Estimated 44 mL/min (50-200); Creatinine,Serum 1.50 mg/dl (0.66-1.25); Estimated Glomerular Filt Rate 45 ml/min (>60); GFR (African American) 55 ML/MIN (>60)
[2025-03-14 09:18] LABS: Anion Gap 12.5 mEq/L (5-15); Calcium 9.1 mg/dl (8.4-10.2); Carbon Dioxide 28 mmol/L (22.0-30.0); Glucose 98 mg/dl (74-100)
[2025-03-14 09:45] LABS: RBC Morphology Normal; Total Cells Counted 100
[2025-03-14] MEDS: HEPARIN 1,000 UNITS/500ML NS (CATH LAB) 3000 UNIT IV (12:18)
[2025-03-14] MEDS: LIDOCAINE 1% 10ML MDV 10 ML IJ (12:18)
[2025-03-14] MEDS: 0.9 % SODIUM CHLORIDE 500 ML 25 ML IV (12:18)
[2025-03-14] MEDS: FENTANYL 100MCG/2ML VIAL 50 MCG IV (12:41)
[2025-03-14] MEDS: MIDAZOLAM HCL 1MG/ML 5ML VIAL 1 MG IV (12:42)
[2025-03-14] MEDS: IOPAMIDOL-370 (76%);100ML BOTTLE 40 ML IV (14:47)
[2025-03-14 14:53] LABS: CATHL Activated Clotting Time 239 SEC (74-125)
== END 2025-03-14 16:16 | disposition home or self-care (01) ==
LOC: CATHLAB 08:36
PROVIDERS: PCP Family Medicine; Visit Provider Internal Medicine
DX: I50.23 Acute on chronic systolic (congestive) heart failure (principal); Z00.6 Encounter for examination for normal comparison and control in clinical research program; I11.0 Hypertensive heart disease with heart failure; I44.2 Atrioventricular block, complete; I27.20 Pulmonary hypertension, unspecified; I25.118 Atherosclerotic heart disease of native coronary artery with other forms of angina pectoris; I48.0 Paroxysmal atrial fibrillation; I42.9 Cardiomyopathy, unspecified; I34.0 Nonrheumatic mitral (valve) insufficiency; E78.2 Mixed hyperlipidemia; G47.33 Obstructive sleep apnea (adult) (pediatric); G25.81 Restless legs syndrome; I25.2 Old myocardial infarction; Z86.79 Personal history of other diseases of the circulatory system; Z95.810 Presence of automatic (implantable) cardiac defibrillator; Z96.89 Presence of other specified functional implants; Z95.818 Presence of other cardiac implants and grafts; Z79.01 Long term (current) use of anticoagulants; Z79.890 Hormone replacement therapy; Z79.899 Other long term (current) drug therapy; Z88.8 Allergy status to other drugs, medicaments and biological substances; Z95.5 Presence of coronary angioplasty implant and graft; Z82.49 Family history of ischemic heart disease and other diseases of the circulatory system
CPT/HCPCS: 33289; 80048; 85007; 85025; 85027; 85347; 99152; 99153; C1769; C1894; C2624; J1644; J3010; J7040; Q9967